=== PATIENT | female | born 1960 | race Caucasian/White ===

== ENCOUNTER 2019-02-15 07:01 | Day surgery (SDC) | payer OTHER, BC ==
--- NOTE | 2019-02-14 11:43 | RAD REPORT ---
EXAM DESCRIPTION: RAD - Chest Pa And Lat (2 Views) - 02/14/2019 11:38 am CLINICAL HISTORY: preop Chest pain. COMPARISON: <Comparisons> FINDINGS: The lungs are clear. The heart is normal in size. No displaced fractures. Aortic atheroscl erosis. IMPRESSION: No acute or concerning finding suspected.
[2019-02-14 11:44] LABS: Absolute Lymphocytes (CBC) 3.2 K/uL (0.7-4.9); Absolute Monocytes 0.6 K/uL (0.1-1.3); Absolute Neutrophil 6.6 K/uL (1.8-8.0); Basophils % 1.1 % (0-1.3); Eosinophils % 1.4 % (0-4.4); Hematocrit 43.7 % (36.0-45.0); Lymphocytes % 29.9 % (15.3-44.8); MPV 8.1 fL (7.6-11.3); RBC Red Blood Cell Count 4.96 M/uL (3.86-4.86)
[2019-02-14 12:00] LABS: Protime INR 0.85
[2019-02-14 12:04] LABS: Potassium 6.1 mmol/L (3.5-5.1)
--- NOTE | 2019-02-14 12:16 | EKG ---
Test Date: 2019-02-14 Test Time: 11:33:18 Corrosion Control Fitter: ROMI MEASUREMENT RESULTS: Intervals: Rate: 70 MT: 136 QRSD: 82 QT: 390 QTc: 421 [place]: P: 48 MT: 136 QRS: 77 T: 103 INTERPRETIVE STATEMENTS: Normal sinus rhythm Possible Left atrial enlargement Nonspecific T wave abnormality Abnormal ECG Compared to ECG 07/24/2017 15:10:55 T-wave abnormality now present Right-axis deviation no longer present Myocardial infarct finding no longer present ST (T wave) deviation no longer present Possible ischemia no longer present Electronically Signed On 02-14-19 12:15:32 CDT by Bruno Broderick
--- OUTSIDE RECORDS SUMMARY | 2019-02-15 07:03 | XMS REPORT | Clinical Summary ---
:1960 Author Organization [facility] Address [address] [place] [address] Care Team Providers Name Role Phone Yoni Robison Primary Care Provider Allergies Active Allergy Reactions Severity Noted Date Comments Codeine 01/25/2016 Erythromycin 01/25/2016 Morphine 01/25/2016 Penicillins 01/25/2016 Medications Not on file Active Problems Not on file Social History Tobacco Use Types Packs/Day Years Used Date Never Assessed Sex Assigned at Date Recorded Not on file Job Start Date Occupation Industry Not on file Not on file Not on file Travel History Travel Start Travel End No recent travel history available. Last Filed Vital Signs Not on file Plan of Treatment Not on file Results Not on fileafter 02/14/2018 Insurance Payer Benefit Plan / Subscriber ID Type Phone Address Group [employer] - [employer] AETNA HMO POS xxxxxxxxxx HMO/POS QPOS BLUE CROSS/BLUE BCBS OS xxxxxxxxxxxx PPO [phone] [address] SHIELD POS/PPO/[place] [address] Advance Directives For more information, please contact:[address] [phone] Code Status Date Activated Date Inactivated Comments Full Code 01/25/2016 3:07 PM 01/25/2016 3:34 PM This code status was determined by: Patient
[2019-02-15] MEDS ORDERED: ACETYLCYST 20% 800 MG/4 ML VIAL PO ONE (07:41)
[2019-02-15] MEDS ORDERED: NA CHLORIDE 0.9% 500 ML ONE ×2 (07:58→09:40)
[2019-02-15] MEDS ORDERED: HEPA 1000U/500MLS 1,000 UNIT/500 ML BAG IV ONE (09:43)
[2019-02-15] MEDS ORDERED: LIDOCAINE 1% 20 ML MDV ONE (09:43)
[2019-02-15] MEDS ORDERED: FENTANYL CITR 100 MCG/2 ML ONE (09:44)
[2019-02-15] MEDS ORDERED: MIDAZOLAM HCL 2 MG/2 ML INJ ONE (09:44)
--- NOTE | 2019-02-15 14:07 | OP ---
Date of Procedure: 02/15/2019 Surgeon: Dm Ahuja MD Team Assistant: Brandyn Ness and Bambi Alaniz. Procedure: Attempted abdominal angiogram with runoff, selective bilateral external iliac angiogram. Indication: Peripheral arterial disease. Description Of Procedure: Ms. German is 58. Documented PAD by Doppler and symptom. Admitted as an outpatient for an abdominal angiogram with runoff. She was given Versed for sedation. She was prep ped and draped in the routine sterile fashion. I attempted to do an abdominal angiogram with runoff via left groin and right groin approach. I was able to cannulate the external iliac artery successfu lly with a needle. However, the wire would not advance. Angiography done showed complete occlusion of the right external iliac and the left external iliac artery. The plan was to bring her back to do the abdominal angiogram with runoff via left arm approach at a different day. There were no complic ations. Blood Loss: 5 cc. Total Conscious Sedation: 30 minutes. Final Diagnosis: Severe peripheral arterial disease. Plan: To do an abdominal angiogram with runoff via left arm approach at a different day. NADIA/OZ Voice ID: [id number] Report ID: [id number]
== END 2019-02-15 12:55 | disposition home health service (06) ==
LOC: CCL 07:01
DX: I70.213 Atherosclerosis of native arteries of extremities with intermittent claudication, bilateral legs (principal); E11.51 Type 2 diabetes mellitus with diabetic peripheral angiopathy without gangrene; I10 Essential (primary) hypertension; E78.2 Mixed hyperlipidemia; I35.8 Other nonrheumatic aortic valve disorders; Z79.84 Long term (current) use of oral hypoglycemic drugs; Z79.82 Long term (current) use of aspirin; Z79.899 Other long term (current) drug therapy; Z87.891 Personal history of nicotine dependence; Z82.49 Family history of ischemic heart disease and other diseases of the circulatory system
CPT/HCPCS: 36415; 71046; 80048; 84132; 85025; 85610; 85730; 93005; J2250; J3010

== ENCOUNTER 2019-02-22 08:58 | Day surgery (SDC) | payer OTHER, BC ==
--- OUTSIDE RECORDS SUMMARY | 2019-02-22 09:01 | XMS REPORT | Clinical Summary ---
:1960 Author Organization [facility] Address [address] [place] [address] Care Team Providers Name Role Phone Yoni [...] Not on file Results Not on fileafter 02/21/2018 Insurance Payer Benefit Plan / Subscriber ID Type Phone Address Group [employer] - [employer] AETNA HMO POS xxxxxxxxxx HMO/POS QPOS BLUE CROSS/BLUE BCBS OS xxxxxxxxxxxx PPO [phone] [address] SHIELD POS/PPO/[place] [address] Advance Directives For more information, please contact:[address] [phone] Code Status Date Activated Date Inactivated Comments Full Code 01/25/2016 3:07 PM 01/25/2016 3:34 PM This code status was determined by: Patient
[2019-02-22] MEDS ORDERED: NA CHLORIDE 0.9% 500 ML ONE (09:31)
[2019-02-22] MEDS ORDERED: HEPA 1000U/500MLS 2,000 UNIT/1,000 ML BAG IV ONE (12:26)
[2019-02-22] MEDS ORDERED: FENTANYL CITR 100 MCG/2 ML ONE (12:39)
[2019-02-22] MEDS ORDERED: MIDAZOLAM HCL 2 MG/2 ML INJ ONE ×2 (12:39→13:01)
[2019-02-22] MEDS ORDERED: HEPARIN 5000 UNIT/ML 1 ML VIAL ONE (12:39)
[2019-02-22] MEDS ORDERED: ATROPINE SULF 1 MG/10 ML SYR IV ONE (12:39)
[2019-02-22] MEDS ORDERED: ACETYLCYST 20% 4 ML VIAL IH ONE (12:51)
--- NOTE | 2019-02-22 20:29 | OP ---
Date of Procedure: 02/22/2019 Surgeon: Dm Ahuja MD Staff Psychiatrist: Dorcas Alaniz and Brandyn Ness. Admitted to my service as an outpatient today 02/22/2019 for abdominal an angiogram with runoff via l eft brachial approach. Indication: PAD and inability to go through her groin to do the procedure about a week ago. Procedure In Detail: Ms. German was brought to the label designer today with the intention of doing an ab dominal angiogram with a left brachial approach. A 6-Chinese sheath was introduced in the left brachi al artery successfully. A pigtail catheter was used and advanced selectively above the renals and di stal aorta. Getting there was done using a [employer] long exchange wire without any difficulties. 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 No complications. Blood Loss: 10 cc. Postoperative Diagnosis: Peripheral arterial disease, severe. Plan: Aortobifemoral surgery. Disposition: The patient will be going home today. She received Mucomyst before the procedure, and she will receive some after the procedure. A CD will be given to her. I will schedule her for an aortobifemoral surgery in [place] with the vascular surgeons probably at [facility]. NADIA/ZO Voice ID: [id number] Report ID: [id number]
== END 2019-02-22 16:10 | disposition home or self-care (01) ==
LOC: CCL 08:58
PROC: B40DYZZ Plain Radiography of Aorta and Bilateral Lower Extremity Arteries using Other Contrast (ICD-10-PCS; principal; 2019-02-22)
DX: I70.213 Atherosclerosis of native arteries of extremities with intermittent claudication, bilateral legs (principal); I70.92 Chronic total occlusion of artery of the extremities; I70.1 Atherosclerosis of renal artery; I35.8 Other nonrheumatic aortic valve disorders; I10 Essential (primary) hypertension; E78.2 Mixed hyperlipidemia; E11.9 Type 2 diabetes mellitus without complications; Z87.891 Personal history of nicotine dependence; Z88.0 Allergy status to penicillin; Z88.3 Allergy status to other anti-infective agents; Z88.6 Allergy status to analgesic agent; Z82.49 Family history of ischemic heart disease and other diseases of the circulatory system
CPT/HCPCS: 36200; 75630; 82962; C1893; J1644; J2250; J3010

== ENCOUNTER 2021-07-08 09:36 | Emergency (ER) | payer BC, OTHER, SELFPAY ==
[2021-07-08 10:29] LABS: Absolute Lymphocytes (CBC) 1.2 K/uL (0.7-4.9); Basophils % 0.7 % (0-1.3); Hematocrit 45.9 % (36.0-45.0); Lymphocytes % 11.4 % (15.3-44.8); MPV 8.1 fL (7.6-11.3); RBC Red Blood Cell Count 5.33 M/uL (3.86-4.86)
[2021-07-08 10:30] LABS: Protime INR 1.01
[2021-07-08] MEDS ORDERED: HYDRALAZINE HCL 20 MG/ML VIAL ONE ×2 (10:43→12:38)
[2021-07-08] MEDS ORDERED: ONDANSETRON 4 MG/2 ML VIAL ONE (11:11)
--- NOTE | 2021-07-08 11:36 | RAD REPORT ---
EXAM DESCRIPTION: RAD - Chest Single View - 07/08/2021 10:37 am CLINICAL HISTORY: ams Chest pain. COMPARISON: Chest Pa And Lat (2 Views) dated 02/14/2019; Chest Single View dated 07/24/2017 FINDINGS: Portable technique limits examination quality. Mild interstitial pulmonary edema suspected. The heart is mildly enlarged in size. No displaced fract ures. IMPRESSION: Mild CHF.
[2021-07-08 11:48] LABS: SARS-COV-2 RT PCR NEGATIVE (NEGATIVE)
[2021-07-08 11:49] LABS: Albumin 4.2 g/dL (3.4-5.0); Bilirubin Direct 0.1 mg/dL (0-0.2); Magnesium 2.8 mg/dL (1.8-2.4)
[2021-07-08 12:14] LABS: Bilirubin Total 0.4 mg/dL (0.2-1.0); Protein, Total 8.7 g/dL (6.4-8.2)
[2021-07-08 12:24] LABS: Troponin (Emerg Dept Use Only) 0.03 ng/mL (0.0-0.045)
--- NOTE | 2021-07-08 14:03 | RAD REPORT ---
EXAM DESCRIPTION: CT - Head Brain Wo Cont - 07/08/2021 1:40 pm CLINICAL HISTORY: Alteration of awareness/confusion COMPARISON: None TECHNIQUE: Computed axial tomography of the head was obtained. IV contrast was not requested. All CT scans are performed using dose optimization technique as appropriate and may include automated exposure control or mA/KV adjustment according to patient size. FINDINGS: A 13 millimeter low-density area left thalamus. 3 millimeter area of increased density near the periventricular white matter adjacent to the frontal horn right lateral ventricle and third ventricle The ventricles are normal in caliber. No extra-axial fluid collection is noted. Moderate to marked low-density areas within periventricular, deep and subcortical white matter likely represent ischemic changes secondary to small vessel disease. Fluid within the sinuses/ mastoids is not seen. IMPRESSION: Moderate to marked low-density areas within periventricular, deep and subcortical white matter likely may indicate a leukoencephalopathy, other a demyelinating process or probably less like ly ischemic changes secondary to small vessel disease. 3 millimeter area of increased density near the periventricular white matter adjacent to the frontal horn right lateral ventricle and third ventricle. This probably represents calcification. However, a small bleed can have a similar appearance 13 millimeter low-density area within the left thalamus may indicate an acute infarction. MRI brain may be helpful for further evaluation
[2021-07-08] MEDS ORDERED: Nicardipine/NS 25 MG/250 ML KIT IV ONE (14:44)
[2021-07-08] MEDS ORDERED: LORazepam 2 MG/ML VIAL ONE (15:33)
--- NOTE | 2021-07-08 16:17 | RAD REPORT ---
EXAM DESCRIPTION: MRI - Brain Wo Cont - 07/08/2021 3:40 pm CLINICAL HISTORY: ataxia COMPARISON: Head CT July 08, 2021 TECHNIQUE: Axial, sagittal, and coronal magnetic resonance images of the brain were obtained. FINDINGS: Extensive abnormal signal within periventricular, deep and subcortical white matter and th e brainstem. Abnormal signal also involves the thalamus, basal ganglia and cerebellar peduncle is tarun aterally Diffusion-weighted/ADC mapping does not reveal evidence of acute infarction. The ventricles are normal caliber. An extra-axial fluid collection is not noted. Fluid within the sinuses/mastoids is not seen IMPRESSION: Extensive abnormal signal throughout the brain as described above. This may be secondary to a leukoencephalopathy, or encephalomyelitis. This could be infectious, inflammatory or due to a metabolic disturbance. Toxic ingestion is a anothe r consideration
--- NOTE | 2021-07-08 17:22 | ER ---
Nurse's Notes [facility] Name: Nicolasa German Age: 61 yrs Sex: Female : 1960 Arrival Date: 07/08/2021 Time: 09:40 Bed 26 Private MD: Mikey Robison H Diagnosis: Altered mental status, unspecified;Posterior Reversible Encephalopathy Syndrome ;Hypertensive Emergency Presentation: 07/08 09:42 Chief complaint: Pt's states "she's been having trouble walking for about 2 aa5 weeks now and it's gotten worse over the last 2 days because she's been disoriented and vomiting and not wanting to eat". Pt states "yesterday she didn't know who I was and this morning she tried to smoke a cigarette but she didn't know how". Pt currently A\\T\\O x person and place, disoriented to time. Pt's reports pt was seen at [place] [facility] on Thursday. 09:42 Initial Sepsis Screen: Does the patient meet any 2 criteria? No. Patient's initial aa5 sepsis screen is negative. Does the patient have a suspected source of infection? No. Patient's initial sepsis screen is negative. Risk Assessment: Do you want to hurt yourself or someone else? Patient reports no desire to harm self or others. Onset of symptoms was June 2021. 09:42 Acuity: RAFI 2 aa5 09:42 Coronavirus screen: vomiting. Ebola Screen: No symptoms or risks identified at this aa5 time. 09:42 Method Of Arrival: Wheelchair aa5 Historical: - Allergies: 09:42 Codeine; aa5 09:42 Erythromycin; aa5 09:42 Morphine; aa5 09:42 PENICILLINS; aa5 - PMHx: 09:42 Diabetes - NIDDM; Hypertension; aa5 - Immunization history:: Client reports having NOT received the Covid vaccine. - Social history:: Smoking status: Patient reports the use of cigarette tobacco products, smokes one pack cigarettes per day. Screenin:45 Abuse screen: Denies threats or abuse. Nutritional screening: lack of appetite >3 days. ap3 Tuberculosis screening: No symptoms or risk factors identified. Fall Risk No fall in past 12 months (0 pts). Secondary diagnosis (15 points) impaired mobility, IV access (20 points). Ambulatory Aid- None/Bed Rest/Nurse Assist (0 pts). Gait- Weak (10 pts.). Mental Status- Oriented to own ability (0 pts). Total Wilson Fall Scale indicates High Risk Score (45 or more points). Fall prevention measures have been instituted. Side Rails Up X 2 Frequent Obs/Assessments Occuring Family Present and informed to notify staff if the need to leave the bedside As available patient and family educated on Fall Prevention Program and Strategies. Assessment: 09:45 General: Appears in no apparent distress. Behavior is cooperative. Pain: Denies pain. ap3 Neuro: Level of Consciousness is awake, alert, obeys commands, Oriented to person, place, situation, Weakness Gait is patient arrived via wheelchair. Speech is normal. Neuro: Reports patients spouse reports patient has been more confused lately. It is reported that the spouse took the patient to another facility last Thursday for similar symptoms however the patient has developed worsening symptoms. Cardiovascular: Patient's skin is warm and dry. Respiratory: Airway is patent Respiratory effort is even, unlabored. 11:25 Reassessment: Patient and/or family updated on plan of care and expected duration. Pain ap3 level reassessed. Patient is alert, oriented x 3, equal unlabored respirations, skin warm/dry/pink. 13:27 Reassessment: No changes from previously documented assessment. Patient and/or family ap3 updated on plan of care and expected duration. Pain level reassessed. Patient is alert, oriented x 3, equal unlabored respirations, skin warm/dry/pink. 15:15 Reassessment: No changes from previously documented assessment. Patient and/or family ap3 updated on plan of care and expected duration. Pain level reassessed. Patient is alert, oriented x 3, equal unlabored respirations, skin warm/dry/pink. 16:47 Reassessment: No changes from previously documented assessment. Patient and/or family ap3 updated on plan of care and expected duration. Pain level reassessed. Patient is alert, oriented x 3, equal unlabored respirations, skin warm/dry/pink. 18:09 Reassessment: No changes from previously documented assessment. Patient and/or family ap3 updated on plan of care and expected duration. Pain level reassessed. Patient is alert, oriented x 3, equal unlabored respirations, skin warm/dry/pink. Vital Signs: 09:42 BP 268 / 141; Pulse 97; Resp 18 S; Temp 98.8(O); Pulse Ox 98% on R/A; Weight 58.97 kg aa5 (R); Height 5 ft. 3 in. (160.02 cm) (R); 09:46 BP 246 / 159 LA Supine (auto/reg); Pulse 96; Pulse Ox 100% on R/A; Height 5 ft. 3 in. mb4 (160.02 cm) (R); 09:48 BP 268 / 141 LA Supine (auto/reg); Pulse 100; Pulse Ox 99% on R/A; mb4 10:01 BP 257 / 131; Pulse 101; Pulse Ox 100% on R/A; mb4 10:30 BP 218 / 106 LA Supine (auto/reg); Pulse 91; Pulse Ox 100% on R/A; mb4 10:43 BP 227 / 96 LA Supine (auto/reg); Pulse 86; Pulse Ox 100% on R/A; mb4 11:00 BP 225 / 87; Pulse 97; Pulse Ox 97% on R/A; ap3 12:19 BP 260 / 101; Pulse 99; Resp 16; Pulse Ox 100% on R/A; ap3 13:27 BP 238 / 99; Pulse 91; Pulse Ox 100% on R/A; ap3 14:34 BP 206 / 97; Pulse 91; Pulse Ox 99% on R/A; ap3 15:51 BP 192 / 132; Pulse 97; Pulse Ox 99% ; ap3 15:56 BP 221 / 85; Pulse 97; Pulse Ox 100% on R/A; ap3 15:57 BP 208 / 87; Pulse 99; Pulse Ox 99% on R/A; ap3 15:58 BP 197 / 91 LA (auto/reg); Pulse 99; Pulse Ox 100% on R/A; ap3 16:01 BP 207 / 81; Pulse 98; Pulse Ox 100% on R/A; ap3 16:03 BP 184 / 82; ap3 16:09 BP 186 / 80; Pulse 94; Pulse Ox 100% on R/A; ap3 16:17 BP 191 / 78; Pulse 106; Pulse Ox 100% on R/A; ap3 16:30 BP 187 / 80; Pulse 94; Pulse Ox 100% on R/A; ap3 16:45 BP 171 / 106; Pulse 96; Pulse Ox 100% on R/A; ap3 17:00 BP 186 / 79; Pulse 102; Pulse Ox 99% on R/A; ap3 17:33 BP 172 / 64; Pulse 109; Pulse Ox 99% on R/A; ap3 18:08 BP 176 / 80; Pulse 97; Resp 18; Pulse Ox 99% on R/A; ap3 18:15 BP 191 / 86; Pulse 105; Pulse Ox 100% on R/A; ap3 18:44 BP 210 / 112 (man/); Pulse 102; Pulse Ox 100% on R/A; ap3 18:58 BP 189 / 126; Pulse 100; Resp 17; Pulse Ox 100% on R/A; ap3 09:46 Body Mass Index 23.03 (58.97 kg, 160.02 cm) mb4 ED Course: 09:40 Patient arrived in ED. am2 09:41 Mikey Robison DO is Private Physician. am2 09:42 Arm band placed on Patient placed in an exam room, on a stretcher. aa5 09:42 Patient has correct armband on for positive identification. Bed in low position. Call aa5 light in reach. Side rails up X2. taker out on. Pulse ox on. NIBP on. 09:43 Anastasiia Smith, BELLA is Primary Nurse. ap3 09:52 Triage completed. aa5 09:57 Sameer Jamison PA is PHCP. jr8 09:57 Tiana Hernandez MD is Attending Physician. jr8 10:20 Initial lab(s) drawn, by me, sent to lab. Inserted saline lock: 20 gauge in right mb4 antecubital area, using aseptic technique. Blood collected. 10:24 COVID swab sent to lab. ap3 10:34 Lab(s) recollected, by me, sent to lab. EKG done, by ED staff, reviewed by Sameer INIGUEZ. 10:36 Ammonia Sent. mb4 10:36 AMMONIA Sent. mb4 10:36 T4,Total Sent. mb4 10:36 T4 Free Sent. mb4 10:36 TSH Sent. mb4 10:37 XRAY Chest (1 view) In Process Unspecified. EDMS 13:40 CT Head Brain wo Cont In Process Unspecified. EDMS 15:40 MRI - Brain Wo Cont In Process Unspecified. EDMS 17:17 Pt visited by . ap3 19:47 Primary Nurse role handed off by Anastasiia Smith RN bb 20:25 [place] Adams, RN is Primary Nurse. mr2 Administered Medications: 10:24 Drug: hydrALAZINE 20 mg Route: IVP; Site: right antecubital; ap3 12:06 Drug: Zofran (Ondansetron) 4 mg Route: IVP; Site: right antecubital; ap3 13:57 Follow up: Response: No adverse reaction ap3 12:18 Drug: hydrALAZINE 20 mg Route: IVP; Site: right antecubital; ap3 12:18 Follow up: Response: No adverse reaction ap3 15:30 Drug: Ativan (LORazepam) 1 mg Route: IVP; Site: right antecubital; ss 15:45 Follow up: Response: Patient is sedated ss 15:51 Drug: Cardene (niCARdipine) 5 mg/hr Route: IV; Rate: calculated rate; Site: right ap3 antecubital; Outcome: 17:22 ER care complete, transfer ordered by MD. mg 21:08 Patient left the ED. mr2 Signatures: Dispatcher [employer] EDMN Alina Mello RN RN Bree Sorenson RN RN aa5 Michelle Hall RN RN ss Sameer Jamison PA PA jr8 Anastasiia Zamudio am2 Anastasiia Smith RN RN ap3 Janette Hammer 4 [place] Adams RN RN mr2
--- NOTE | 2021-07-08 17:23 | EDPHYS ---
Physician Documentation [facility] Name: Nicolasa German Age: 61 yrs Sex: Female : 1960 Arrival Date: 07/08/2021 Time: 09:40 Bed 26 Private MD: Mikey Robison H ED Physician Tiana Hernandez HPI: 07/08 14:41 This 61 yrs old Female presents to ER via Wheelchair with complaints of jr8 Trouble Walking, Trouble Talking, Altered Mental Status, Decreased Appetite. 14:42 Onset: The symptoms/episode began/occurred gradually, 2 week(s) ago. Severity of jr8 symptoms: At their worst the symptoms were moderate in the emergency department the symptoms are worse. Patient's baseline: Neuro: alert and fully oriented, Motor: no deficits, Ambulation: walks without assistance, Speech: normal. The patient has not experienced similar symptoms in the past. Family member stated that patient has been off of her medications for some time. Was seen at [facility] the other day for similar symptoms and was sent home to follow up. Stated that they came back today to this ED for worsening of altered mentation. Patient currently alert to person, place, time, and event. Cannot recall year or month. Historical: - Allergies: 09:42 Codeine; aa5 09:42 Erythromycin; aa5 09:42 Morphine; aa5 09:42 PENICILLINS; aa5 - PMHx: 09:42 Diabetes - NIDDM; Hypertension; aa5 - Immunization history:: Client reports having NOT received the Covid vaccine. - Social history:: Smoking status: Patient reports the use of cigarette tobacco products, smokes one pack cigarettes per day. ROS: 14:42 Eyes: Negative for injury, pain, redness, and discharge, ENT: Negative for injury, jr8 pain, and discharge, Neck: Negative for injury, pain, and swelling, Cardiovascular: Negative for chest pain, palpitations, and edema, Respiratory: Negative for shortness of breath, cough, wheezing, and pleuritic chest pain, Abdomen/GI: Negative for abdominal pain, nausea, vomiting, diarrhea, and constipation, Back: Negative for injury and pain, MS/Extremity: Negative for injury and deformity, Skin: Negative for injury, rash, and discoloration. 14:42 Neuro: Positive for altered mental status, gait disturbance, weakness. Exam: 16:44 Eyes: Pupils equal round and reactive to light, extra-ocular motions intact. Lids and jr8 lashes normal. Conjunctiva and sclera are non-icteric and not injected. Cornea within normal limits. Periorbital areas with no swelling, redness, or edema. ENT: Nares patent. No nasal discharge, no septal abnormalities noted. Tympanic membranes are normal and external auditory canals are clear. Oropharynx with no redness, swelling, or masses, exudates, or evidence of obstruction, uvula midline. Mucous membranes moist. Neck: Trachea midline, no thyromegaly or masses palpated, and no cervical lymphadenopathy. Supple, full range of motion without nuchal rigidity, or vertebral point tenderness. No Meningismus. Cardiovascular: Regular rate and rhythm with a normal S1 and S2. No gallops, murmurs, or rubs. Normal PMI, no JVD. No pulse deficits. Respiratory: Lungs have equal breath sounds bilaterally, clear to auscultation and percussion. No rales, rhonchi or wheezes noted. No increased work of breathing, no retractions or nasal flaring. Abdomen/GI: Soft, non-tender, with normal bowel sounds. No distension or tympany. No guarding or rebound. No evidence of tenderness throughout. Back: No spinal tenderness. No costovertebral tenderness. Full range of motion. Skin: Warm, dry with normal turgor. Normal color with no rashes, no lesions, and no evidence of cellulitis. MS/ Extremity: Pulses equal, no cyanosis. Neurovascular intact. Full, normal range of motion. 16:44 Neuro: Orientation: to person, place, time, situation, Mentation: able to follow commands, confused, Patient thinks it is 1989 and that the month is february, Memory: immediate memory is intact, remote memory is impaired, recent memory is intact, Cranial nerves: CN I not tested, CN II- XII are normal as tested, visual jasso are intact. extraocular movements are intact, Facial palsy and sensory deficits are absent. Speech is clear and appropriate. Tongue strength is normal, Cerebellar function: dysmetria is noted on both sides, Motor: moves all fours, Sensation: no obvious gross deficits, seizure activity, is not displayed by the patient, Abnormal movements: resting tremor, is located in the right hand and left hand, clonus present bilateral feet . Vital Signs: 09:42 BP 268 / 141; Pulse 97; Resp 18 S; Temp 98.8(O); Pulse Ox 98% on R/A; Weight 58.97 kg aa5 (R); Height 5 ft. 3 in. (160.02 cm) (R); 09:46 BP 246 / 159 LA Supine (auto/reg); Pulse 96; Pulse Ox 100% on R/A; Height 5 ft. 3 in. mb4 (160.02 cm) (R); 09:48 BP 268 / 141 LA Supine (auto/reg); Pulse 100; Pulse Ox 99% on R/A; mb4 10:01 BP 257 / 131; Pulse 101; Pulse Ox 100% on R/A; mb4 10:30 BP 218 / 106 LA Supine (auto/reg); Pulse 91; Pulse Ox 100% on R/A; mb4 10:43 BP 227 / 96 LA Supine (auto/reg); Pulse 86; Pulse Ox 100% on R/A; mb4 11:00 BP 225 / 87; Pulse 97; Pulse Ox 97% on R/A; ap3 12:19 BP 260 / 101; Pulse 99; Resp 16; Pulse Ox 100% on R/A; ap3 13:27 BP 238 / 99; Pulse 91; Pulse Ox 100% on R/A; ap3 14:34 BP 206 / 97; Pulse 91; Pulse Ox 99% on R/A; ap3 15:51 BP 192 / 132; Pulse 97; Pulse Ox 99% ; ap3 15:56 BP 221 / 85; Pulse 97; Pulse Ox 100% on R/A; ap3 15:57 BP 208 / 87; Pulse 99; Pulse Ox 99% on R/A; ap3 15:58 BP 197 / 91 LA (auto/reg); Pulse 99; Pulse Ox 100% on R/A; ap3 16:01 BP 207 / 81; Pulse 98; Pulse Ox 100% on R/A; ap3 16:03 BP 184 / 82; ap3 16:09 BP 186 / 80; Pulse 94; Pulse Ox 100% on R/A; ap3 16:17 BP 191 / 78; Pulse 106; Pulse Ox 100% on R/A; ap3 16:30 BP 187 / 80; Pulse 94; Pulse Ox 100% on R/A; ap3 16:45 BP 171 / 106; Pulse 96; Pulse Ox 100% on R/A; ap3 17:00 BP 186 / 79; Pulse 102; Pulse Ox 99% on R/A; ap3 17:33 BP 172 / 64; Pulse 109; Pulse Ox 99% on R/A; ap3 18:08 BP 176 / 80; Pulse 97; Resp 18; Pulse Ox 99% on R/A; ap3 18:15 BP 191 / 86; Pulse 105; Pulse Ox 100% on R/A; ap3 18:44 BP 210 / 112 (man/); Pulse 102; Pulse Ox 100% on R/A; ap3 18:58 BP 189 / 126; Pulse 100; Resp 17; Pulse Ox 100% on R/A; ap3 09:46 Body Mass Index 23.03 (58.97 kg, 160.02 cm) mb4 MDM: 09:57 Patient medically screened. jr8 16:44 Data reviewed: vital signs, nurses notes, lab test result(s), EKG, radiologic studies, jr8 CT scan, plain films. Data interpreted: Pulse oximetry: on room air is 100 %. Interpretation: normal. Counseling: I had a detailed discussion with the patient and/or guardian regarding: the historical points, exam findings, and any diagnostic results supporting the discharge/admit diagnosis, lab results, radiology results, the need to transfer to another facility, [facility] does not immediately have the required specialist. 17:19 ED course: Spoke with neurology and finn[place] rubber at [facility]. Discussion that this may jr8 be a PRES syndrome. That at this time we have no ICU availability. They are happy to take patient for further evaluation. This was also discussed with of patient and is good with this . 18:36 Physician consultation: Blend Plant Operator Livia regarding regarding transfer, patient's pm1 condition, and will see patient. 18:52 Physician consultation: [facility] regarding regarding transfer, patient's pm1 condition, would like consultation with With neurologist now regarding blood pressure goals. 18:56 Physician consultation: Neurologist Daren regarding consult, patient's condition, pm1 Fine with blood pressure goal 190 here in the ER. Would like a copy of MRI images. 07/08 09:57 Order name: Basic Metabolic Panel; Complete Time: 13:10 07/08 09:57 Order name: CBC with Diff; Complete Time: 11:09 07/08 09:57 Order name: LFT's; Complete Time: 13:10 07/08 09:57 Order name: Magnesium; Complete Time: 13:10 07/08 09:57 Order name: NT PRO-BNP; Complete Time: 13:10 07/08 09:57 Order name: PT-INR; Complete Time: 11:09 07/08 09:57 Order name: Troponin (emerg Dept Use Only); Complete Time: 13:10 07/08 10:12 Order name: TSH; Complete Time: 12:18 ap3 07/08 10:12 Order name: T4 Free; Complete Time: 12:18 ap3 07/08 10:12 Order name: T4,Total ap3 07/08 10:14 Order name: AMMONIA 07/08 10:14 Order name: Ammonia; Complete Time: 11:59 EDMS 07/08 11:06 Order name: COVID-19/FLU A+B/RSV; Complete Time: 11:59 EDMS 07/08 09:57 Order name: XRAY Chest (1 view); Complete Time: 11:59 07/08 09:57 Order name: EKG; Complete Time: 09:58 07/08 09:57 Order name: Cardiac monitoring; Complete Time: 09:59 07/08 09:57 Order name: EKG - Nurse/Tech; Complete Time: 10:34 07/08 09:57 Order name: IV Saline Lock; Complete Time: 10:16 07/08 09:57 Order name: Labs collected and sent; Complete Time: 10:24 07/08 09:57 Order name: O2 Per Protocol; Complete Time: 09:59 07/08 09:57 Order name: O2 Sat Monitoring; Complete Time: 09:59 07/08 13:12 Order name: CT Head Brain wo Cont; Complete Time: 14:06 07/08 14:09 Order name: MRI - Brain Wo Cont; Complete Time: 16:29 jr8 Administered Medications: 10:24 Drug: hydrALAZINE 20 mg Route: IVP; Site: right antecubital; ap3 12:06 Drug: Zofran (Ondansetron) 4 mg Route: IVP; Site: right antecubital; ap3 13:57 Follow up: Response: No adverse reaction ap3 12:18 Drug: hydrALAZINE 20 mg Route: IVP; Site: right antecubital; ap3 12:18 Follow up: Response: No adverse reaction ap3 15:30 Drug: Ativan (LORazepam) 1 mg Route: IVP; Site: right antecubital; ss 15:45 Follow up: Response: Patient is sedated ss 15:51 Drug: Cardene (niCARdipine) 5 mg/hr Route: IV; Rate: calculated rate; Site: right ap3 antecubital; Disposition: 07/09 08:54 Co-signature as Attending Physician, Tiana Hernandez MD I agree with the assessment and sp3 plan of care. Disposition Summary: 07/08/21 17:22 Transfer Ordered Transfer Location: [facility] jr8 Reason: Higher level of care jr8 Condition: Fair jr8 Problem: new jr8 Symptoms: are unchanged jr8 Accepting Physician: Dr. Manuel(07/08/21 21:08) mr2 Diagnosis - Altered mental status, unspecified jr8 - Posterior Reversible Encephalopathy Syndrome jr8 - Hypertensive Emergency jr8 Forms: - Medication Reconciliation Form jr8 - SBAR form jr8 Signatures: Dispatcher [employer] EDBree Marin, RN RN aa5 Michelle Hall RN RN ss Sameer Jamison PA PA jr8 Conner Fish, CASINO CASHIER MANAGER CASINO CASHIER MANAGER pm1 Anastasiia Smith RN RN ap3 Tiana Hernandez MD MD sp3 Cleveland Adams RN RN mr2 Corrections: (The following items were deleted from the chart) 07/08 11:06 10:16 CORONAVIRUS+MR.LAB.BRZ ordered. EDNE EDMS 21:08 17:22 Dr. Manuel jr8 mr2
[2021-07-08 21:18] VITALS: TEMP 98.8
[2021-07-08 21:50] VITALS: O2SAT 100
[2021-07-08 21:53] VITALS: BP 189/126
--- NOTE | 2021-07-09 12:16 | EKG ---
Test Date: 2021-07-08 Test Time: 10:27:03 [employer] Jumpbasting: JESÚS MEASUREMENT RESULTS: Intervals: Rate: 94 ID: [id number] QRSD: 80 QT: 378 QTc: 472 [place]: P: 66 ID: [id number] QRS: 83 T: 102 INTERPRETIVE STATEMENTS: Normal sinus rhythm Possible Left atrial enlargement Left ventricular hypertrophy ST & T wave abnormality, consider lateral ischemia Prolonged QT Abnormal ECG Compared to ECG 02/14/2019 11:33:18 Left ventricular hypertrophy now present ST (T wave) deviation now present Possible ischemia now present Prolonged QT interval now present T-wave abnormality no longer present Electronically Signed On 07-09-21 12:13:08 CDT by Dm Ahuja
== END 2021-07-08 21:08 | disposition short-term general hospital (02) ==
LOC: ER 09:36
DX: I67.83 Posterior reversible encephalopathy syndrome (principal); I16.1 Hypertensive emergency; F17.210 Nicotine dependence, cigarettes, uncomplicated; I10 Essential (primary) hypertension; E11.9 Type 2 diabetes mellitus without complications; Z88.0 Allergy status to penicillin; Z88.3 Allergy status to other anti-infective agents; Z88.5 Allergy status to narcotic agent
CPT/HCPCS: 0241U; 36415; 70450; 70551; 71045; 80048; 80076; 82140; 83735; 83880; 84436; 84439; 84443; 84484; 85025; 85610; 93005; 96374; 96375; 99285; J0360; J2405

== ENCOUNTER 2023-02-03 11:59 | Inpatient (IN) | payer OTHER ==
--- OUTSIDE RECORDS SUMMARY | 2023-02-03 12:05 | XMS REPORT | Continuity of Care Document ---
:[address] [facility] t Address [address] [place] [address] [address] [place] [address] Care Team Providers Name Role Phone TIMO FUNG VIN Primary Care Physician Unavailable LANI CHAN Attending Clinician Unavailable Jono VALDERRAMA-C, Elvia Charles Attending Clinician [phone] OSMEL LOPEZ Attending Clinician Unavailable Hazel Santana MA Attending Clinician Unavailable Bambi Neumann MA Attending Clinician Unavailable MD NATALY JACKSON Attending Clinician Unavailable Ricardo Gordon MD Attending Clinician Bernardino Goodson MD Attending Clinician Brent Fields Attending Clinician Elton Gómez MD Attending Clinician LARA BANG Attending Clinician Unavailable AVA GIBSON Attending Clinician Nelly BRANDYN Paz Attending Clinician Unavailable LANI CHAN Admitting Clinician Unavailable MD NATALY JACKSON Admitting Clinician Unavailable OSMEL LOPEZ Admitting Clinician Unavailable MD VICKEY FERNANDEZ Admitting Clinician UnavailLARA Hollis Admitting Clinician Unavailable BRANDYN TELLEZ Admitting Clinician Unavailable Payers Payer Name Policy Type Policy Number Effective Date Expiration Date S yusuf [employer]ET[employer] O POS [id number] 2014 00:00:00 QPOS BCBS OS [id number] 2012 00:00:00 POS/PPO/EPO Problems Condition Condition Condition Status Onset Resolution Last Treating Co mments Source Name Details Category Date Date Treatment Clinician Date ESRD ESRD Disease Active Methodi needing needing 5-26 st dialysis dialysis 00:00: Hospit a 00 l Hemodialys Hemodialys Disease Active Overview : Methodi is is 5-[address] catheter catheter 00:00: g of this Hos joann dysfunctio dysfunctio 00 note l n n might be different from the original. Added automatic ally from request for surgery [id number] ESRD (end ESRD (end Disease Active Overview: Methodi stage stage 5-[address] renal renal 00:00: g of this Hospita disease) disease) 00 note l might be different from the original. Added automatic ally from request for surgery [id number] Hypertensi Hypertensi Disease Active 2020-[address] ve urgency ve urgency 0-25 [facility] 00:00: Medical 00 Center PVD PVD Disease Recurre [facility] (periphera (periphera nce 6-25 [facility] l vascular l vascular 00:00: Me dical disease) disease) 00 Center Peripheral Peripheral Disease Recurre [facility] artery artery nce 6-25 [facility] disease disease 00:00: Medical 00 [place] S/P S/P Disease Active [facility] aorto-bife aorto-bife 6-25 [facility] moral moral 00:00: Medical bypass bypass 00 Center surgery by surgery by Dr Geoff Tellez (03/08) (03/08) Diabetes 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, type 2, Medical noninsulin noninsulin Ce nter dependent dependent Hypertensi Hypertensi Disease Active C [facility] on on [facility] Acute Acute Disease Active [facility] blood loss blood loss [facility] anemia anemia [facility] Perioperat Perioperat Disease Active C [facility] giselle pain giselle pain [facility] Allergies, Adverse Reactions, Alerts Allergy Allergy Status Severity Reaction(s) Onset Inactive Treating Comm ents Source Name Type Date Date Clinician Adhesive Propensi Active Rash Method i Tape-Ember ty to 10-09 st icones adverse 00:00: Hospita reaction 00 l s to drug Codeine Propensi Active Swelling Metho di ty to 10-09 adverse 00:00: Hospita reaction 00 l s to drug Mupiroc- Propensi Active Swelling THIS IS Met hodi Chlorhex ty to 10-[address] -[facility]-Ember adverse 00:00: ANTIBIOTI Hosp tre icone reaction 00 C l s to drug Erythrom Propensi Active Swelling Meth solitario ycin ty to 10-09 adverse 00:00: Hospita reaction 00 l s to drug Morphine Propensi Active Swelling Meth solitario ty to 10-09 adverse 00:00: Hospita reaction 00 l s to drug Penicill Propensi Active Swelling Meth solitario ins ty to 10-09 adverse 00:00: Hospita reaction 00 l s to drug Chlorhex Propensi Active [facility] idine ty to 03-22 [facility] adverse 00:00: Medical reaction 00 Center s CHLORHEX Allergy Active 0 [facility] IDINE 7-09 00:00: 00 Adhesive Propensi Active [address] [facility] Tape ty to 6-13 [facility] adverse 00:00: Medical reaction 00 Center s ADHESIVE Allergy Active 0 [facility] TAPE 6-13 00:00: 00 Codeine Propensi Active [address] [facility] ty to 5-13 [facility] adverse 00:00: Medical reaction 00 Center s Erythrom Propensi Active [address] [facility] ycin ty to 5-13 [facility] adverse 00:00: Medical reaction 00 Center s Morphine Propensi Active [address] [facility] [facility] ty to 5-13 [facility] adverse 00:00: Medical reaction 00 Center s Penicill Propensi Active [address] [facility] ins ty to 5-13 [facility] adverse 00:00: Medical reaction 00 Center s CODEINE Allergy Active 0 [facility] 5-13 00:00: 00 ERYTHROM Allergy Active 0 [facility] YCIN 5-13 00:00: 00 MORPHINE Allergy Active 0 [facility] 5-13 00:00: 00 PENICILL Allergy Active 0 [facility] INS 5-13 00:00: 00 Family History Family Member Diagnosis Comments Start Date Stop Date Source Natural father Diabetes [facility] Social History Social Habit Start Date Stop Date Quantity Comments Source Gender identity 2021-10-07 Identifies as Method ist 14:58:33 female gender Hospital (finding) Sexual orientation 2021-10-07 Heterosexual Meth odist 14:58:33 (finding) Hospital History of tobacco Smokes tobacco Me thodist use daily Hospital History SDOH [facility] Alcohol Std Drinks Medica l Center History SDOH [facility] Alcohol Binge Medical Filemon ter History of Social 2022-12-17 2022-12-[address] function 00:00:00 00:00:00 Hospital Tobacco use and 2022-01-28 2022-01-28 Smokeless tobacco Me thodist exposure 00:00:00 00:00:00 non-user Hospital Alcohol intake 2021-07-15 2021-07-15 Current non-drinker [facility] 00:[facility] 00:00:00 of alcohol [facility] (finding) Cigarettes smoked 2019-02-24 2019-02-[address] [facility] current (pack per 00:00:00 00:00:00 Medical Center day) - Reported Cigarette 2019-02-24 2019-02-[address] [facility] pack-years 00:00:00 00:00:00 Medical Center History SDOH 2019-02-24 2019-02-[address] [facility] Alcohol Frequency 00:00:00 00:00:00 [facility] Center Sex Assigned At [birth year] BRAN Huertas 00:00:00 00:00:00 Medical Center Smoking Status Start Date Stop Date Source Smokes tobacco daily 2022-01-28 00:00:00 Methodi [facility] Medications Ordered Filled Start Stop Current Ordering Indication Dosage Frequency Signature Comments Components Source Medication Medication Date Date Medication? Clinician (SIG) Name Name donepeziL Yes 5mg QD Take 1 Method i (ARICEPT) 5 5-11 tablet (5 st MG tablet 14:04: mg total) Hos joann 28 by mouth l nightly. cholecalcif Yes 2000U QD Take 1 Met hodi les, 5-[address] vitamin D3, 14:04: (2,000 Hosp tre 50 mcg 28 Units l (2,000 total) by unit) mouth capsule daily. capsule acetaminoph 2023-0 Yes 650mg Q.5D Take 2 Met hodi en 5-[address] (TYLENOL) 14:04: (650 mg Hospi ta 325 MG 28 total) by l tablet mouth 2 (two) times a day as needed (pain). allopurinoL 2023-0 Yes 100mg QD Take 100 M ethodi (ZYLOPRIM) 5-[address] 100 MG 14:04: mouth Hospita tablet 28 daily. l aspirin 2023-0 Yes 81mg QD Take 1 Methodi (ECOTRIN) 5-11 tablet (81 st 81 MG 14:04: mg total) Hospita enteric 28 by mouth l coated daily. tablet hydrALAZINE 2023-0 Yes 25mg Q.[id number] Take 1 Methodi (APRESOLINE 5-11 [id number] tablet (25 st ) 25 MG 14:04: 3D mg total) Hospi ta tablet 28 by mouth 3 l (three) times a day. ergocalcife 2023-0 Yes [id number] Q7D Take 1 Me thodi rol 5-[address] (VITAMIN 14:04: (50,000 Hospit a D2) 50,000 28 Units l unit total) by capsule mouth once a week. isosorbide 2023-0 Yes 120mg QD Take 1 Meth solitario mononitrate 5-[address] (IMDUR) 120 14:04: (120 mg Hos joann MG 24 hr 28 total) by l tablet mouth daily. memantine 2023-0 Yes 5mg QD Take 1 Method i (NAMENDA) 5 5-11 tablet (5 st MG tablet 14:04: mg total) Hos joann 28 by mouth l daily. NIFEdipine 2023-0 Yes 90mg QD Take 1 Metho di ER 5-11 tablet (90 st (PROCARDIA 14:04: mg total) Ho spita XL) 90 MG 28 by mouth l 24 hr daily. tablet pantoprazol 2023-0 Yes 40mg QD Take 1 Meth solitario e 5-11 tablet (40 st (PROTONIX) 14:04: mg total) Ho spita 40 MG EC 28 by mouth l tablet daily. vit B 2023-0 Yes 1{tbl} QD Take 1 Methodi complex-vit 5-[address] erickson 14:04: mouth Hospita C-folic 28 daily. l acid (Radha-Arnie) 0.8 mg tablet labetaloL Yes 200mg Q.[id number] Take 1 Methodi (NORMODYNE) 5-[id number] 200 MG 14:04: 3D (200 mg Hospita tablet 28 total) by l mouth 3 (three) times a day. lidocaine-p 2022- No Apply Meth solitario rilocaine 04-01 07-[address] (EMLA) 00:00: 04:59 as needed Hospi ta 2.5-2.5 % 00 :00 for mild l cream pain. Apply to area 30-45 minutes prior to dialysis treatment. aspirin 2021- No 1 (one) Method i (ECOTRIN) 02-[address] 81 MG 11:06: 00:00 day Hospita enteric 03 :00 l coated tablet ergocalcife 2021- No [id number] Q7D Take Met hodi rol 01-07 50,000 [address] (VITAMIN 00:00: 00:00 Units by Hosp tre D2) 50,000 00 :00 mouth once l unit a week. capsule memantine 2021- No 5mg QD Take 5 mg Me thodi (NAMENDA) 5 01-[address] MG tablet 00:00: 00:00 daily. Hospi ta 00 :00 l Radha-Arnie 2021- No TAKE 1 Metho di 0.8 mg 12-[address] tablet 00:00: 00:00 MOUTH Hospita 00 :00 DAILY WITH l LARGEST MEAL OF THE DAY isosorbide 2020-09- No 120mg QD Take 120 M ethodi mononitrate - mg by st (IMDUR) 120 00:00: 00:00 mouth Hosp tre MG 24 hr 00 :00 daily. l tablet NIFEdipine 2020-09- No 90mg QD Take 90 mg Methodi CC (ADALAT 02-[address] CC) 90 MG 00:00: 00:00 daily. Hospi ta 24 hr 00 :00 l tablet pantoprazol 2020-09- No 40mg QD Take 40 mg Methodi e 2-31 05-[address] (PROTONIX) 00:00: 00:00 daily. Hosp tre 40 MG EC 00 :00 l tablet allopurinoL 2020-09- No Metho di (ZYLOPRIM) - st 100 MG 00:00: 00:00 Hospita tablet 00 :00 l hydrALAZINE 2020-09- No Metho di (APRESOLINE 10-07- st ) 25 MG 00:00: 00:00 Hospita tablet 00 :00 l aspirin 81 2020-09 Yes 81mg QD Take [address] MG EC -04 by mouth [facility] tablet 18:57: daily. [address] glimepiride 2020-09 Yes 1mg Take [address] (AMARYL) 1 04 by mouth [facility] MG tablet 18:57: every [place] [address] morning Center before breakfast . simvastatin 2020-09 Yes 40mg QD Take [address] (ZOCOR) 40 04 by mouth [facility]ukes MG tablet 18:57: nightly. [address] senna-docus 2020-09- No 1{tbl} Q.5D Take [address] ate 09-17 tablet by [facility]ukes (SENOKOT S) 00:00: 23:59 mouth 2 Me dical 8.6-50 mg 00 :00 (two) Center per tablet times daily. labetaloL 2020-09- No 200mg Q.[id number] Take [address] (NORMODYNE) 0-31 10- [id number] tablet [facility]ukes 200 MG 00:00: 23:59 3D (200 mg Medical tablet 00 :00 total) by Center mouth 3 (three) times daily 7 am ,2 pm , 10 pm. labetaloL 2020-09- No Methodi (NORMODYNE) 0- st 200 MG 00:00: 00:00 Hospita tablet 00 :00 l acetaminoph 2020-09- No Metho di en 0- 05- st (TYLENOL) 00:00: 00:00 Hospita 325 MG 00 :00 l tablet Vital Signs Vital Name Observation Time Observation Value Comments Source WEIGHT 2021-07-18 05:00:00 54.885 kg WEIGHT 2021-07-17 04:53:00 55.157 kg WEIGHT 2021-07-16 04:15:00 55.611 kg WEIGHT 2021-07-15 06:00:00 54.976 kg WEIGHT 2021-07-12 01:00:00 61.689 kg WEIGHT 2021-07-11 03:00:00 57.607 kg HEIGHT 2021-07-09 05:00:00 160 cm WEIGHT 2021-07-09 00:45:00 55.475 kg WEIGHT 2021-07-18 05:00:00 54.885 kg WEIGHT 2021-07-17 04:53:00 55.157 kg WEIGHT 2021-07-16 04:15:00 55.611 kg WEIGHT 2021-07-15 06:00:00 54.976 kg WEIGHT 2021-07-12 01:00:00 61.689 kg WEIGHT 2021-07-11 03:00:00 57.607 kg HEIGHT 2021-07-09 05:00:00 160 cm WEIGHT 2021-07-09 00:45:00 55.475 kg Systolic blood 2023-01-22 18:59:00 167 mm[Hg] [facility] pressure Diastolic blood 2023-01-22 18:59:00 68 mm[Hg] [facility] pressure Heart rate 2023-01-22 18:59:00 79 /min [facility] Body temperature 2023-01-22 18:59:00 36.44 Kalie [facility] Body height 2023-01-22 18:59:00 160 cm [facility] Oxygen saturation in 2023-01-22 18:59:00 100 /min [facility] Arterial blood by Pulse oximetry Body weight 2022-10-23 19:01:00 57.153 kg [facility] BMI 2022-10-23 19:01:00 22.32 kg/m2 [facility] Respiratory rate 2022-02-06 17:37:04 16 /min [facility] Procedures Procedure Date / Time Performing Clinician Source Performed US CAROTID DUPLEX 2023-01-22 19:00:00 Osmel Lopez [facility] BILATERAL [facility] POC GLUCOSE 2022-02-06 16:08:00 Nataly Jackson [facility] Ho spital OR [place] < 1 HOUR 2022-02-06 16:00:00 Arslan Betts spitimbo INSERTION, CATHETER, 2022-02-06 15:19:00 Elton Gómez [facility] CENTRAL VENOUS, TUNNELED, WITH PORT, WITH C-ARM FLUOROSCOPIC GUIDANCE TYPE AND SCREEN 2022-02-06 14:49:00 Rahul Fernandez janeth Mendieta COVID-19 QUALITATIVE 2022-02-06 14:06:00 [facility] RT-PCR XR CHEST 1 VW PORTABLE 2022-02-06 12:30:32 [facility] CBC WITH PLATELET AND 2022-02-06 12:17:00 [facility] DIFFERENTIAL COMPREHENSIVE METABOLIC 2022-02-06 12:17:00 [facility] PANEL PROTHROMBIN TIME WITH INR 2022-02-06 12:17:00 [facility] PARTIAL THROMBOPLASTIN 2022-02-06 12:17:00 [facility] TIME (PTT) ESTIMATED GFR 2022-02-06 12:17:00 [facility] spitimbo Plan of Care Planned Activity Planned Date Details Comments Source Future Scheduled 2023-05-[address] [facility] Test 00:00:00 (Season Ended) [code = [facility] INFLUENZA VACCINE (Season Ended)] Future Scheduled 2023-02-03 COVID-19 VACCINE (#1) [facility] 12:02:56 [code = COVID-19 VACCINE (#1)] Future Scheduled 2023-02-03 Pneumococcal Vaccine: [facility] Test 12:02:56 Pediatrics (0 to 5 Years) and At-Risk Patients (6 to 64 Years) (1 - PCV) [code = Pneumococcal Vaccine: Pediatrics (0 to 5 Years) and At-Risk Patients (6 to 64 Years) (1 - PCV)] Future Scheduled 2023-02-03 Hepatitis C screening [facility] Test 12:02:56 (procedure) [code = 724965067] Future Scheduled 2023-02-03 SHINGLES VACCINES (1 [facility] Test 12:02:56 of 2) [code = SHINGLES VACCINES (1 of 2)] Future Scheduled 2023-02-03 Screening for [facility] Test 12:02:56 malignant neoplasm of cervix (procedure) [code = 878996429] Future Scheduled 2023-02-03 BREAST CANCER [facility] Test 12:02:56 SCREENING [code = BREAST CANCER SCREENING] Future Scheduled 2023-02-03 COLONOSCOPY SCREENING [facility] Test 12:02:56 [code = COLONOSCOPY SCREENING] Future Scheduled 2023-02-03 Screening for [facility] Test 12:02:56 malignant neoplasm of lung (procedure) [code = 777079109] Future Scheduled 2023-02-03 INFLUENZA VACCINE Method [facility] Test 12:02:56 [code = INFLUENZA VACCINE] Future Scheduled 2022-09-[address] [facility] Test 00:00:00 (12+) [code = Medical Center DEPRESSION SCREENING (12+)] Future Scheduled 2022-07-[address] [facility] Test 00:00:00 Counseling and Medical Cente r Screening (12+) [code = Tobacco Cessation Counseling and Screening (12+)] Future Scheduled 2022-02-[address] Test 00:00:00 (procedure) [code = Medical Center 13905509] Future Scheduled 2019-08-[address] [facility] Test 00:00:00 measurement [facility] Center (procedure) [code = 35896717] Future Scheduled [address] [facility] Test 00:00:00 malignant neoplasm of Medica l Center lung (procedure) [code = 955342389] Future Scheduled 2011 SHINGLES VACCINES ([address] [facility] Test 00:00:00 of 2) [code = SHINGLES Medic al Center VACCINES (1 of 2)] Future Scheduled [address] [facility] Test 00:00:00 malignant neoplasm of Medica l Center cervix (procedure) [code = 996886365] Future Scheduled 1980 DTAP/TDAP/TD [facility]ACCINES [facility] Test 00:00:00 (1 - Tdap) [code = Medical C enter DTAP/TDAP/TD VACCINES (1 - Tdap)] Future Scheduled 1979 HEPATITIS C SCRE[facility]ING [facility] Test 00:00:00 [code = HEPATITIS C Medical Center SCREENING] Future Scheduled [address] EYE EXAM [facility] Test 00:00:00 [code = DIABETIC EYE Medical Center EXAM] Future Scheduled [address] [facility] Test 00:00:00 examination Medical Center (regime/therapy) [code = 012419828] Future Scheduled 1971 Urine screening for [facility] Test 00:00:00 protein (procedure) Medical Center [code = 697995884] Future Scheduled [address] [facility] Test 00:00:00 0-64 YRS (1 - PCV) Medical C enter [code = PNEUMOCOCCAL VACCINE 0-64 YRS (1 - PCV)] Future Scheduled 1960 COVID-19 VACCINE (#1) [facility] Test 00:00:00 [code = COVID-[address] VACCINE (#1)] Future Scheduled [address] [facility] Test 00:00:00 malignant neoplasm of Medica l Center breast (procedure) [code = 162176154] Future Scheduled [address] [facility] Test 00:00:00 (combo) [code = CT Medical C enter Colonography (combo)] Future Scheduled [address] [facility] Test 00:00:00 malignant neoplasm of Medica l Center colon (procedure) [code = 023374177] Future Scheduled [address] [facility] Test 00:00:00 malignant neoplasm of Medica l Center colon (procedure) [code = 238061569] Future Scheduled [address] [facility] Test 00:00:00 malignant neoplasm of Medica l Center colon (procedure) [code = 736878785] Future Scheduled [address] [facility] Test 00:00:00 malignant neoplasm of Medica l Center colon (procedure) [code = 311907214] Future Scheduled 1960 Sigmoidoscopy [code = [facility] Test 00:00:00 Sigmoidoscopy] Medical Cente r Encounters Start End Encounter Admission Attending Care Care Encounter Source Date/Time Date/Time Type Type Clinicians Facility Department ID 2021-07-08 Inpatient ER BRIAN CHAN Neurology [id number] 16:50:34 [facility] 2023-01-22 2023-01-22 Office Jono, 1.2.840.1 [id number] Methodi 14:30:00 14:35:22 Visit Elvia 02264.1.[address] [place] 3.430.2.7 Hosp tre .3.066315 l .8 2023-01-22 2023-01-22 Outpatient [facility] [id number] [place] 00:00:00 00:00:00 OSMEL Cervantes [facility] 2023-01-22 2023-01-22 Travel 1.2.840.1 1.2.996.124 [id number] Methodi 00:00:00 00:00:[address] 3.430.2.7 0.2.7.3.698 Ho spita .3.799381 084.8 l .8 2023-01-22 2023-01-22 Outpatient [facility] [id number] [address] [place] [address] 00:00:00 00:00:[address] 2022-10-23 2022-10-23 Office Jono, 1.2.840.1 [id number] Methodi 13:00:00 13:38:29 Visit Elvia 04786.1.[address] [place] 3.430.2.7 Hosp tre .3.152014 l .8 2022-10-23 2022-10-23 Travel 1.2.840.1 1.2.451.219 [id number] Methodi 00:00:00 00:00:[address] 3.430.2.7 0.2.7.3.698 Ho spita .3.179153 084.8 l .8 2022-10-23 2022-10-23 Outpatient [facility] [id number] [place] 00:00:00 00:00:[address] 2022-07-22 2022-07-22 Office Jono, 1.2.840.1 [id number] Methodi 11:00:00 11:33:06 Visit Elvia 73283.1.[address] [place] 3.430.2.7 Hosp tre .3.565723 l .8 2022-07-22 2022-07-22 Travel 1.2.840.1 1.2.370.655 [id number] Methodi 00:00:00 00:00:[address] 3.430.2.7 0.2.7.3.698 Ho spita .3.445128 084.8 l .8 2022-07-22 2022-07-22 Outpatient [facility] [id number] [place] 00:00:00 00:00:[address] 2022-07-15 2022-07-15 Telephone Jono, 1.2.840.1 [id number] Methodi 00:00:00 00:00:[address] [place] 3.430.2.7 Hosp tre .3.600021 l .8 2022-07-15 2022-07-15 Telephone Esther, 1.2.840.1 [id number] Methodi 00:00:00 00:00:00 Crysagavinria 65255.1.1 835 s t 3.430.2.7 Hospit a .3.640623 l .8 2022-06-24 2022-06-24 Office Jono, 1.2.840.1 [id number] Methodi 15:00:00 15:25:51 Visit Elvia 93847.1.[address] [place] 3.430.2.7 Hosp tre .3.845860 l .8 2022-06-24 2022-06-24 Travel 1.2.840.1 1.2.365.671 2938 [id number] Methodi 00:00:00 00:00:[address] 3.430.2.7 0.2.7.3.698 Ho spita .3.200973 084.8 l .8 2022-06-242022-06-24 Outpatient [facility] [id number] [place] 00:00:00 00:00:[address] 2022-06-03 2022-06-03 Office De La Cruz, 1.2.840.1 [id number] Methodi 13:30:00 13:56:09 Visit Elvia 95509.1.[address] [place] 3.430.2.7 Hosp tre .3.556859 l .8 2022-06-03 2022-06-03 Travel 1.2.840.1 1.2.441.190 [id number] [id number] Methodi 00:00:00 00:00:[address] 3.430.2.7 0.2.7.3.698 Ho spita .3.928109 084.8 l .8 2022-06-03 2022-06-03 Outpatient [facility] [id number] [place] 00:00:00 00:00:[address] 2022-05-26 2022-05-26 Telephone Lopez, 1.2.840.1 [id number] Methodi 00:00:00 00:00:[address] [facility] 3.430.2.7 Hosp tre .3.278188 l .8 2022-04-30 2022-04-30 Telephone De La Cruz, 1.2.840.1 [id number] Methodi 00:00:00 00:00:[address] [place] 3.430.2.7 Hosp tre .3.008287 l .8 2022-04-30 2022-04-30 Telephone Thien, 1.2.840.1 [id number] Methodi 00:00:00 00:00:[address] 3.430.2.7 Hospit a .3.474593 l .8 2022-04-01 2022-04-01 Office Lopez, 1.2.840.1 [id number] Methodi 10:30:00 13:49:25 Visit Osmel 15220.1.[address] [facility] 3.430.2.7 Hosp tre .3.661773 l .8 2022-04-01 2022-04-01 Telephone John, 1.2.840.1 [id number] Methodi 00:00:00 00:00:[address] [facility] 3.430.2.7 Hosp tre .3.375315 l .8 2022-04-01 2022-04-01 Travel 1.2.840.1 1.2.100.385 1701 [id number] Methodi 00:00:00 00:00:[address] 3.430.2.7 0.2.7.3.698 Ho spita .3.558117 084.8 l .8 2022-04-01 2022-04-01 Outpatient [facility] [id number] [place] 00:00:00 00:00:00 OSMEL [address] 2022-02-20 2022-02-20 Office John, 1.2.840.1 [id number] Methodi 10:30:00 11:07:19 Visit Osmel 94415.1.1 977 [facility] 3.430.2.7 Hosp tre .3.879982 l .8 2022-02-20 2022-02-20 Travel 1.2.840.1 1.2.356.980 [id number] Methodi 00:00:00 00:00:[address] 3.430.2.7 0.2.7.3.698 Ho spita .3.589914 084.8 l .8 2022-02-20 2022-02-20 Outpatient [facility] [id number] [place] 00:00:00 00:00:[address] OSMEL [address] 2022-02-06 2022-02-06 Emergency Gordon, Ricardo 1.2.840.1 [id number] Methodi 06:51:00 14:48:00 Nataly Jackson 16192.1.[address] 3.430.2.7 Hospit a .3.906141 l .8 2022-02-06 2022-02-06 Anesthesia Bernardino Goodson 1.2.840.1 [id number] Methodi 10:19:00 11:09:00 Event Brent Fields 93786.1.[address] 3.430.2.7 Hospit a .3.628957 l .8 2022-02-06 2022-02-06 Surgery Elton Gómez 1.2.840.1 [id number] Methodi 09:50:00 10:55:[address] 3.430.2.7 Hospit a .3.974734 l .8 2022-02-06 2022-02-06 Outpatient [facility] [id number] 954 [place] 00:00:00 00:00:00 NATALY [address] 2022-02-05 2022-02-05 Telephone Thien 1.2.840.1 [id number] Methodi 00:00:00 00:00:[address] 3.430.2.7 Hospit a .3.256670 l .8 2022-01-30 2022-01-30 Outpatient [facility] [id number] [place] 00:00:00 00:00:00 OSMEL 505 Method i 2022-01-28 2022-01-28 [facility] [id number] [place] 00:00:00 00:00:00 OSMEL 449 Method i 2022-01-28 2022-01-28 [facility] [id number] [place] 00:00:00 00:00:00 OSMEL 559 Method i 2021-10-09 2021-10-09 Out[facility] [id number] [place] 00:00:00 00:00:00 OSMEL 117 Method i 2021-07-08 2021-07-18 [facility] [id number] [id number] [facility] 19:39:00 18:57:00 LARA Results Test Description Test Time Test Comments Results Result Comments Source SARS-CoV-2 (COVID-19) RNA [Presence] in Respiratory sp ecimen by 2022-02-06 17:46:20 BRI with probe detection Test Item Value Reference Range Interpretation Comme nts SARS-CoV-2 (COVID-19) RNA [Presence] in Respiratory specimen by Not detected BRI with probe detection (test code = 09545-1) Whether patient is employed in a healthcare setting (test code = Un known 37547-7) Whether the patient has symptoms related to condition of interest U nknown (test code = 27529-0) Whether the patient was hospitalized for condition of interest Unkn own (test code = 29498-9) Whether the patient was admitted to intensive care unit (ICU) for U nknown condition of interest (test code = 01657-5) Whether patient resides in a congregate care setting (test code = U nknown 67067-4) status (test code = 48765-4) Unknown Date and time of symptom onset (test code = 98530-2) Unknown [facility] [id number] 16:09:00 Test Item Value Reference Range Interpretation Comments POC glucose (test code = 102 mg/dL 65-99 H Ope rator Name: 21233-1) Ramses may ID: [id number] able: RN Notified Lab Interpretation (test Abnormal code = 11763-8) [facility] [Presence] in Respiratory specimen by BRI with probe [id number] 16:29:28 Test Item Value Reference Range Interpretation Comments SARS-CoV-2 (COVID-19) RNA Not detected [Presence] in Respiratory specimen by BRI with probe detection (test code = 69562-8) Whether patient is employed in a Unknown healthcare setting (test code = 24501-3) Whether the patient has symptoms Unknown related to condition of interest (test code = 32878-6) Whether the patient was Unknown hospitalized for condition of interest (test code = 79387-2) Whether the patient was admitted Unknown to intensive care unit (ICU) for condition of interest (test code = 97054-4) Whether patient resides in a Unknown congregate care setting (test code = 75131-9) status (test code = Unknown 83555-3) Date and time of symptom onset Unknown (test code = 62443-1) [facility] [id number] 15:39:42 Test Item Value Reference Range Interpretation Comments POC-GLUCOSE METER 142 mg/dL 70-110 H : TESTED A T [facility] [address] (BEAKER) (test code [address], = 1538) [place] [address]: Sack Lifter/Techni ganesh ID = [id number] for Claire Bowman SARS-COV2/RT-PCR ([facility])2021-07-18 11:38:31 Test Item Value Reference Range Interpretation Comments SARS-COV2/RT-PCR (test Negative Not Detected, Negative, code = 5708268) See external report for linked test SARS-COV-2 PERFORMING LAB [facility] (test code = 7511226) Negative result for this test determines that SARS-CoV-2 RNA was not present in the specimen above the Limit of Detection (LOD). However, Negative results do not preclude SARS-CoV-2 infection and should not be used as the sole basis for treatment or patient management decisions. Negative results must be combined with clinical observations, patient history, and epidemiological information. A false negative result may occur if a specimen is improperly collected, transported or handled. A false negative result should be considered if patient's recent exposures or clinical presentation indicate that COVID-19 (SARS-CoV-2) is likely and diagnostic tests for other causes of illness are negative. Re-testing should be considered in cases of suspected false negatives.The limit of detection for this assay is 800 copies/mL.This SARS CoV-2 test is a real-time RT-PCR test intended for the qualitative detection of nucleic acid from SARS-CoV-2 in a nasopharyngeal swab specimen collected from individuals suspected of COVID-19 by their healthcare provider.This test has not been Food and Drug Administration (FDA) cleared or approved. This is a modified version of an approved Emergency Use Authorization (EUA) and is in the process of review by the FDA. Once authorized by the FDA, the issued EUA will be effective until the declaration that circumstances exist justifying the authorization of the emergency use ofin vitro diagnostic tests for detection and/or diagnosis of COVID-19 is terminated under Section 564(b)(2) of the Act or the EUA is revoked under Section 564(g) of the Act.Fact Sheet for Healthcare Prov iders:https://www.Review Trackers/sites/default/files/product/documents/Fact_Sheet_HC _Tbuefkiyz_Wpja_VUOI-MnA-0.pdfFact Sheet for Healthcare Patients:https://www.Review Trackers/sites/default/files/product/docume nts/Coro_Euddl_Mllnvqib_Nemf_FTIX-YrW-6.pdfPerforming Laboratory:[place] [address], [place] [address]RZCO-GFCKYKS METER 2021-07-18 11:07:57 Test Item Value Reference Range Interpretation Comments POC-GLUCOSE METER 122 mg/dL 70-110 H : TESTED A T [facility] [address] (BEAKER) (test code [facility], = 1538) [place] [address] 384: Sack Lifter/Techni ganesh ID = [id number] for Claire Bowman POCT-GLUCOSE [id number] 06:37:23 Test Item Value Reference Range Interpretation Comments POC-GLUCOSE METER 125 mg/dL 70-110 H : TESTED A T [facility] [address] (BEAKER) (test code [facility], = 1538) [place] [address] 384: Sack Lifter/Techni ganesh ID = [id number] for Betty Bella bucio BASIC METABOLIC [id number] 06:35:24 Test Item Value Reference Range Interpretation Comments SODIUM (BEAKER) 135 meq/L 135-148 (test code = 381) POTASSIUM (BEAKER) 3.8 meq/L 3.5-5.5 (test code = 379) CHLORIDE (BEAKER) 101 meq/L 98-106 (test code = 382) CO2 (BEAKER) (test 22 meq/L 20-31 code = 355) BLOOD UREA NITROGEN 33 mg/dL 10-26 H (BEAKER) (test code = 354) CREATININE (BEAKER) 3.97 mg/dL 0.50-1.20 H (test code = 358) GLUCOSE RANDOM 124 mg/dL 70-110 H (BEAKER) (test code = 652) CALCIUM (BEAKER) 9.4 mg/dL 8.5-10.5 (test code = 697) EGFR (BEAKER) (test 12 mL/min/1.73 ESTIMA DUY GFR IS code = 1092) sq m NOT ACCURATE CREATININE CLEARANCE IN PREDICTING GLOMERULAR FILTRATION RATE . ESTIMATED GFR I S NOT APPLICABLE FOR DIALYSIS PATIEN TS. Sack Lifter ID - [id number] 20:36:14 Test Item Value Reference Range Interpretation Comments POC-GLUCOSE METER 135 mg/dL 70-110 H : [facility] [address] [facility] (test code [facility], = 1538) [place] [address]: Sack Lifter/Techni ganesh ID = [id number] for Bella Kiran POCT-GLUCOSE [id number] 16:42:10 Test Item Value Reference Range Interpretation Comments POC-GLUCOSE METER 118 mg/dL 70-110 H : Notified RN/MD: [facility] (test code AT [facility] [address] [facility] = 1538) [facility] [address]: Sack Lifter/Techni ganesh ID = [id number] for Anand stout Mario Alberto POCT-GLUCOSE [id number] 11:21:09 Test Item Value Reference Range Interpretation Comments POC-GLUCOSE METER 119 mg/dL 70-110 H : Notified RN/MD: [facility] (test code AT [facility] [address] [facility] [address] = 1538) [place] [address]: Sack Lifter/Techni ganesh ID = [id number] for Shannon Guerra POCT-GLUCOSE [id number] 06:33:44 Test Item Value Reference Range Interpretation Comments POC-GLUCOSE METER 113 mg/dL 70-110 H : TESTED A T [facility] [address] (BEAKER) (test code [facility], = 1538) [place] [address]: Sack Lifter/Techni ganesh ID = [id number] for Bella Kiran BASIC METABOLIC [id number] 06:02:43 Test Item Value Reference Range Interpretation Comments SODIUM (BEAKER) 136 meq/L 135-148 (test code = 381) POTASSIUM (BEAKER) 3.8 meq/L 3.5-5.5 (test code = 379) CHLORIDE (BEAKER) 101 meq/L 98-106 (test code = 382) CO2 (BEAKER) (test 21 meq/L 20-31 code = 355) BLOOD UREA NITROGEN 32 mg/dL 10-26 H (BEAKER) (test code = 354) CREATININE (BEAKER) 4.12 mg/dL 0.50-1.20 H (test code = 358) GLUCOSE RANDOM 107 mg/dL 70-110 (BEAKER) (test code = 652) CALCIUM (BEAKER) 9.7 mg/dL 8.5-10.5 (test code = 697) EGFR (BEAKER) (test 11 mL/min/1.73 ESTIMA DUY GFR IS code = 1092) sq m NOT ACCURATE CREATININE CLEARANCE IN PREDICTING GLOMERULAR FILTRATION RATE . ESTIMATED GFR I S NOT APPLICABLE FOR DIALYSIS PATIEN TS. Sack Lifter ID - [id number] 20:56:43 Test Item Value Reference Range Interpretation Comments POC-GLUCOSE METER 164 mg/dL 70-110 H : TESTED A T [facility] [address] (BEAKER) (test code [address], = 1538) [place] [address]: Sack Lifter/Techni ganesh ID = [id number] for Bella Kiran POCT-GLUCOSE [id number] 15:00:53 Test Item Value Reference Range Interpretation Comments POC-GLUCOSE METER 141 mg/dL 70-110 H : TESTED A T [facility] [address] (BEAKER) (test code [address], = 1538) [place] [address]: Sack Lifter/Techni ganesh ID = [id number] for Olinda Osbornen POCT-GLUCOSE [id number] 11:25:32 Test Item Value Reference Range Interpretation Comments POC-GLUCOSE METER 114 mg/dL 70-110 H : TESTED A T [facility] [address] (BEAKER) (test code [address], = 1538) [place] [address]: Sack Lifter/Techni ganesh ID = [id number] for Jacky inorJessycen POCT-GLUCOSE [id number] 06:14:30 Test Item Value Reference Range Interpretation Comments POC-GLUCOSE METER 106 mg/dL 70-110 : TESTED A T [facility] [address] (BEAKER) (test code [facility] [address] [facility], = 1538) [facility] 77 384: Sack Lifter/Techni ganesh ID = [id number] for Bambi Fonseca BASIC METABOLIC [id number] 05:12:00 Test Item Value Reference Range Interpretation Comments SODIUM (BEAKER) 134 meq/L 135-148 L (test code = 381) POTASSIUM (BEAKER) 4.0 meq/L 3.5-5.5 (test code = 379) CHLORIDE (BEAKER) 100 meq/L 98-106 (test code = 382) CO2 (BEAKER) (test 20 meq/L 20-31 code = 355) ANION GAP (BEAKER) 18 meq/L (test code = 345) BLOOD UREA NITROGEN 30 mg/dL 10-26 H (BEAKER) (test code = 354) CREATININE (BEAKER) 3.91 mg/dL 0.50-1.20 H (test code = 358) BUN/CREATININE RATIO 7.6726 (BEAKER) (test code = 1800) GLUCOSE RANDOM 103 mg/dL 70-110 (BEAKER) (test code = 652) CALCIUM (BEAKER) 9.5 mg/dL 8.5-10.5 (test code = 697) EGFR (BEAKER) (test 12 mL/min/1.73 ESTIMA DUY GFR IS code = 1092) sq m NOT ACCURATE CREATININE CLEARANCE IN PREDICTING GLOMERULAR FILTRATION RATE . ESTIMATED GFR I S NOT APPLICABLE FOR DIALYSIS PATIEN TS. Sack Lifter ID - [id number] W/PLT COUNT & AUTO [id number] 04:21:05 Test Item Value Reference Range Interpretation Comments WHITE BLOOD CELL COUNT (BEAKER) 8.4 K/ L 4.0-10.0 (test code = 775) RED BLOOD CELL COUNT (BEAKER) 3.23 M/ L 4.00-5.00 L (test code = 761) HEMOGLOBIN (BEAKER) (test code = 9.0 GM/DL 12.0-15.5 L 410) HEMATOCRIT (BEAKER) (test code = 27.1 % 36.0-46.0 L 411) MEAN CORPUSCULAR VOLUME (BEAKER) 83.9 fL 82.0-99.0 (test code = 753) MEAN CORPUSCULAR HEMOGLOBIN 27.9 pg 27.0-33.0 (BEAKER) (test code = 751) MEAN CORPUSCULAR HEMOGLOBIN CONC 33.2 GM/DL 32.0-36.0 (BEAKER) (test code = 752) RED CELL DISTRIBUTION WIDTH 13.5 % 12.0-15.0 (BEAKER) (test code = 412) PLATELET COUNT (BEAKER) (test 213 K/CU MM 150-430 code = 756) MEAN PLATELET VOLUME (BEAKER) 11.2 fL 6.0-11.5 (test code = 754) NUCLEATED RED BLOOD CELLS 0 /100 WBC 0-0 (BEAKER) (test code = 413) NEUTROPHILS RELATIVE PERCENT 61 % (BEAKER) (test code = 429) LYMPHOCYTES RELATIVE PERCENT 29 % (BEAKER) (test code = 430) MONOCYTES RELATIVE PERCENT 8 % (BEAKER) (test code = 431) EOSINOPHILS RELATIVE PERCENT 2 % (BEAKER) (test code = 432) BASOPHILS RELATIVE PERCENT 1 % (BEAKER) (test code = 437) NEUTROPHILS ABSOLUTE COUNT 5.07 K/ L 1.80-8.00 (BEAKER) (test code = 670) LYMPHOCYTES ABSOLUTE COUNT 2.41 K/ L 1.48-4.50 (BEAKER) (test code = 414) MONOCYTES ABSOLUTE COUNT (BEAKER) 0.65 K/ L 0.00-1.30 (test code = 415) EOSINOPHILS ABSOLUTE COUNT 0.17 K/ L 0.00-0.50 (BEAKER) (test code = 416) BASOPHILS ABSOLUTE COUNT (BEAKER) 0.04 K/ L 0.00-0.20 (test code = 417) IMMATURE GRANULOCYTES-RELATIVE 1 % 0-0 H PERCENT (BEAKER) (test code = 2801) POCT-GLUCOSE [id number] 20:59:31 Test Item Value Reference Range Interpretation Comments POC-GLUCOSE METER 112 mg/dL 70-110 H : TESTED A T [facility] [address] (BEAKER) (test code [facility], = 1538) [place] [address]: Sack Lifter/Techni ganesh ID = [id number] for Bambi Fonseca POCT-GLUCOSE [id number] 16:21:16 Test Item Value Reference Range Interpretation Comments POC-GLUCOSE METER 151 mg/dL 70-110 H : TESTED A T [facility] [address] (BEAKER) (test code [address], = 1538) [place] [address]: Sack Lifter/Techni ganesh ID = [id number] for Zeeshan Rodríguez POCT-GLUCOSE [id number] 12:19:25 Test Item Value Reference Range Interpretation Comments POC-GLUCOSE METER 127 mg/dL 70-110 H : TESTED A T [facility] [address] (BEAKER) (test code [address], = 1538) [place] [address]: Sack Lifter/Techni ganesh ID = [id number] for Consuelo Rodrígueznnandrew POCT-GLUCOSE [id number] 05:54:36 Test Item Value Reference Range Interpretation Comments POC-GLUCOSE METER 127 mg/dL 70-110 H : TESTED A T [facility] [address] (BEAKER) (test code [address], = 1538) [place] [address]: Sack Lifter/Techni ganesh ID = [id number] for Betty bucioBella BASIC METABOLIC [id number] 05:44:55 Test Item Value Reference Range Interpretation Comments SODIUM (BEAKER) 135 meq/L 135-148 (test code = 381) POTASSIUM (BEAKER) 3.3 meq/L 3.5-5.5 L (test code = 379) CHLORIDE (BEAKER) 100 meq/L 98-106 (test code = 382) CO2 (BEAKER) (test 22 meq/L - code = 355) BLOOD UREA NITROGEN 31 mg/dL 10-26 H (BEAKER) (test code = 354) CREATININE (BEAKER) 3.48 mg/dL 0.50-1.20 H (test code = 358) GLUCOSE RANDOM 118 mg/dL 70-110 H (BEAKER) (test code = 652) CALCIUM (BEAKER) 9.2 mg/dL 8.5-10.5 (test code = 697) EGFR (BEAKER) (test 13 mL/min/1.73 ESTIMA DUY GFR IS code = 1092) sq m NOT ACCURATE CREATININE CLEARANCE IN PREDICTING GLOMERULAR FILTRATION RATE . ESTIMATED GFR I S NOT APPLICABLE FOR DIALYSIS PATIEN TS. Sack Lifter ID - [id number] 20:24:52 Test Item Value Reference Range Interpretation Comments POC-GLUCOSE METER 148 mg/dL 70-110 H : TESTED A T [facility] [address] (BEAKER) (test code [address] [facility], = 1538) [place] [address]: Sack Lifter/Techni ganesh ID = [id number] for Bella Kiran POCT-GLUCOSE [id number] 17:02:22 Test Item Value Reference Range Interpretation Comments POC-GLUCOSE METER 145 mg/dL 70-110 H : TESTED A T [facility] [address] (BEAKER) (test code [address], = 1538) [place] [address]: Sack Lifter/Techni ganesh ID = [id number] for K alu, Onelia POCT-GLUCOSE [id number] 10:34:41 Test Item Value Reference Range Interpretation Comments POC-GLUCOSE METER 141 mg/dL 70-110 H : TESTED A T [facility] [address] (BEAKER) (test code [facility] [address], = 1538) [place] [address]: Sack Lifter/Techni ganesh ID = [id number] for K alu, Onelia POCT-GLUCOSE [id number] 06:25:25 Test Item Value Reference Range Interpretation Comments POC-GLUCOSE METER 114 mg/dL 70-110 H : TESTED A T [facility] [address] (BEAKER) (test code [facility] [address], = 1538) [place] [address]: Sack Lifter/Techni ganesh ID = [id number] for Kwabena Euceda COMPREHENSIVE METABOLIC [id number] 05:29:01 Test Item Value Reference Range Interpretation Comments TOTAL PROTEIN 5.9 gm/dL 6.0-8.5 L (BEAKER) (test code = 770) ALBUMIN (BEAKER) 3.5 g/dL 3.5-5.0 (test code = 1145) ALKALINE PHOSPHATASE 84 U/L 30-115 (BEAKER) (test code = 346) BILIRUBIN TOTAL 0.2 mg/dL 0.1-1.3 (BEAKER) (test code = 377) SODIUM (BEAKER) (test 134 meq/L 135-148 L code = 381) POTASSIUM (BEAKER) 3.5 meq/L 3.5-5.5 (test code = 379) CHLORIDE (BEAKER) 98 meq/L 98-106 (test code = 382) CO2 (BEAKER) (test 24 meq/L 20-31 code = 355) BLOOD UREA NITROGEN 31 mg/dL 10-26 H (BEAKER) (test code = 354) CREATININE (BEAKER) 3.47 mg/dL 0.50-1.20 H (test code = 358) GLUCOSE RANDOM 120 mg/dL 70-110 H (BEAKER) (test code = 652) CALCIUM (BEAKER) 9.4 mg/dL 8.5-10.5 (test code = 697) AST (SGOT) (BEAKER) 10 U/L 5-40 (test code = 353) ALT (SGPT) (BEAKER) 7 U/L 6-50 (test code = 347) EGFR (BEAKER) (test 13 mL/min/1.73 ESTIMA DUY GFR IS code = 1092) sq m NOT ACCURATE CREATININE CLEARANCE IN PREDICTING GLOMERULAR FILTRATION RATE . ESTIMATED GFR I S NOT APPLICABLE FOR DIALYSIS PATIEN TS. Sack Lifter ID - [id number] NATRIURETIC FACTOR (BNP)2021-07-14 05:20:46 Test Item Value Reference Range Interpretation Comments B-TYPE NATRIURETIC PEPTIDE (BEAKER) 294 pg/mL 0-100 H (test code = 700) Sack Lifter ID - [id number] 22:46:56 Test Item Value Reference Range Interpretation Comments POC-GLUCOSE METER 131 mg/dL 70-110 H : TESTED A T [facility] [address] (BEAKER) (test code [facility], = 1538) [place] [address]: Sack Lifter/Techni ganesh ID = [id number] for Kwabena Euceda POCT-GLUCOSE [id number] 16:12:55 Test Item Value Reference Range Interpretation Comments POC-GLUCOSE METER 167 mg/dL 70-110 H : TESTED A T [facility] [address] (BEAKER) (test code [facility], = 1538) [place] [address]: Sack Lifter/Techni ganesh ID = [id number] for K charles Onelia BASIC METABOLIC [id number] 12:01:34 Test Item Value Reference Range Interpretation Comments SODIUM (BEAKER) 137 meq/L 135-148 (test code = 381) POTASSIUM (BEAKER) 3.9 meq/L 3.5-5.5 (test code = 379) CHLORIDE (BEAKER) 98 meq/L 98-106 (test code = 382) CO2 (BEAKER) (test 23 meq/L 20-31 code = 355) BLOOD UREA NITROGEN 31 mg/dL 10-26 H (BEAKER) (test code = 354) CREATININE (BEAKER) 3.56 mg/dL 0.50-1.20 H (test code = 358) GLUCOSE RANDOM 155 mg/dL 70-110 H (BEAKER) (test code = 652) CALCIUM (BEAKER) 9.8 mg/dL 8.5-10.5 (test code = 697) EGFR (BEAKER) (test 13 mL/min/1.73 ESTIMA DUY GFR IS code = 1092) sq m NOT ACCURATE CREATININE CLEARANCE IN PREDICTING GLOMERULAR FILTRATION RATE . ESTIMATED GFR I S NOT APPLICABLE FOR DIALYSIS PATIEN TS. Sack Lifter ID - [id number] 10:58:11 Test Item Value Reference Range Interpretation Comments POC-GLUCOSE METER 151 mg/dL 70-110 H : TESTED A T [facility] [address] (BEAKER) (test code [facility] [address] [facility], = 1538) [place] [address]: Sack Lifter/Techni ganesh ID = [id number] for K charles, Onelia POCT-GLUCOSE [id number] 06:01:49 Test Item Value Reference Range Interpretation Comments POC-GLUCOSE METER 118 mg/dL 70-110 H : TESTED A T [facility] [address] (BEAKER) (test code [facility] [address] [facility], = 1538) [place] [address]: Sack Lifter/Techni ganesh ID = [id number] for Ronak rodrigueztim Jordon POCT-GLUCOSE [id number] 21:45:03 Test Item Value Reference Range Interpretation Comments POC-GLUCOSE METER 138 mg/dL 70-110 H : TESTED A T [facility] [address] (BEAKER) (test code [facility] [address] [facility], = 1538) [place] [address]: Sack Lifter/Techni ganesh ID = [id number] for Ronak childers Jordon POCT-GLUCOSE [id number] 15:31:43 Test Item Value Reference Range Interpretation Comments POC-GLUCOSE METER 152 mg/dL 70-110 H : TESTED A T [facility] [address] (BEAKER) (test code [facility] [address] [facility], = 1538) [place] [address]: Sack Lifter/Techni ganesh ID = [id number] for Claire Bowman POCT-GLUCOSE [id number] 11:21:07 Test Item Value Reference Range Interpretation Comments POC-GLUCOSE METER 152 mg/dL 70-110 H : TESTED A T [facility] [address] (BEAKER) (test code [facility] [address] [facility], = 1538) [place] [address]: Sack Lifter/Techni ganesh ID = [id number] for Ashley Condon BASIC METABOLIC [id number] 10:08:53 Test Item Value Reference Range Interpretation Comments SODIUM (BEAKER) 135 meq/L 135-148 (test code = 381) POTASSIUM (BEAKER) 3.7 meq/L 3.5-5.5 (test code = 379) CHLORIDE (BEAKER) 101 meq/L 98-106 (test code = 382) CO2 (BEAKER) (test 21 meq/L 20-31 code = 355) BLOOD UREA NITROGEN 29 mg/dL 10-26 H (BEAKER) (test code = 354) CREATININE (BEAKER) 3.36 mg/dL 0.50-1.20 H (test code = 358) GLUCOSE RANDOM 129 mg/dL 70-110 H (BEAKER) (test code = 652) CALCIUM (BEAKER) 9.5 mg/dL 8.5-10.5 (test code = 697) EGFR (BEAKER) (test 14 mL/min/1.73 ESTIMA DUY GFR IS code = 1092) sq m NOT ACCURATE CREATININE CLEARANCE IN PREDICTING GLOMERULAR FILTRATION RATE . ESTIMATED GFR I S NOT APPLICABLE FOR DIALYSIS PATIEN TS. Sack Lifter ID - [id number] 20:56:24 Test Item Value Reference Range Interpretation Comments POC-GLUCOSE METER 141 mg/dL 70-110 H : TESTED A T [facility] [address] (BEAKER) (test code [facility], = 1538) [place] [address]: Sack Lifter/Techni ganesh ID = [id number] for Jomar Brown POCT-GLUCOSE [id number] 17:13:07 Test Item Value Reference Range Interpretation Comments POC-GLUCOSE METER 102 mg/dL 70-110 : TESTED A T [facility] [address] (BEAKER) (test code [facility], = 1538) [place] [address]: Sack Lifter/Techni ganesh ID = [id number] for Christen Nunes MR, SPINE, CERVICAL, WITHOUT [id number] 15:20:00Unlisted Reason for Exam - Click Yes and Enter Reason Below->YesUnlisted Reason for Exam->evaluate [facility] : 1960 Sex: FFINALREPORT MR, SPINE, CERVICAL, WITHOUT CONTRAST INDICATION: Unlisted Reason for Examevaluate for ADEM TECHNIQUE: Multiplanar, multisequence MR imaging of the cervical spine was performed without intravenous contrast. COMPARISON: None. FINDINGS: Cord: Normal caliber. No signal abnormalities. Osseous structures: Preserved vertebral body heights. No abnormal signal characteristics. Mild to moderate degenerative changes at all levels. The craniocervical junction is normal. Discs: Normal height and signal intensity. Findings by level:C2/C3: Central disc protrusion without canal narrowing. No foraminal stenosis. C3/C4: Central disc and endplate disease. Mild canal narrowing. Mild bilateral foraminal stenosis. C4/C5: Broad disc bulge with mild canal narrowing. No foraminal compromise. C5/C6: Broad central disc bulge. Mild to moderate canal narrowing. Moderate bilateral foraminal stenosis. C6/C7: Degenerative endplate and facet disease without critical canal or foraminal narrowing. C7/T1: No canal or foraminal narrowing. Soft tissues: Paraspinal soft tissues are unremarkable. IMPRESSION: No signal abnormalities in the cervical cord. No critical canal or foraminal stenosis. Signed: JR Proctor Robert MDReport Verified Date/Time: 07/11/2021 15:20:27 Reading Location: [address] Neuro Reading Room POCT- GLUCOSE [id number] 11:56:52 Test Item Value Reference Range Interpretation Comments POC-GLUCOSE METER 181 mg/dL 70-110 H : TESTED A T [facility] [address] (BEAKER) (test code [facility] [address] [facility], = 1538) [facility] 77 384: Sack Lifter/Techni ganesh ID = [id number] for Christen Nunes BASIC METABOLIC [id number] 05:07:08 Test Item Value Reference Range Interpretation Comments SODIUM (BEAKER) 136 meq/L 135-148 (test code = 381) POTASSIUM (BEAKER) 3.9 meq/L 3.5-5.5 (test code = 379) CHLORIDE (BEAKER) 102 meq/L 98-106 (test code = 382) CO2 (BEAKER) (test 22 meq/L 20-31 code = 355) BLOOD UREA NITROGEN 28 mg/dL 10-26 H (BEAKER) (test code = 354) CREATININE (BEAKER) 2.92 mg/dL 0.50-1.20 H (test code = 358) GLUCOSE RANDOM 117 mg/dL 70-110 H (BEAKER) (test code = 652) CALCIUM (BEAKER) 8.7 mg/dL 8.5-10.5 (test code = 697) EGFR (BEAKER) (test 16 mL/min/1.73 ESTIMA DUY GFR IS code = 1092) sq m NOT ACCURATE CREATININE CLEARANCE IN PREDICTING GLOMERULAR FILTRATION RATE . ESTIMATED GFR I S NOT APPLICABLE FOR DIALYSIS PATIEN TS. Sack Lifter ID - [id number] (HEMOGRAM ONLY)2021-07-11 04:39:06 Test Item Value Reference Range Interpretation Comments WHITE BLOOD CELL COUNT (BEAKER) 10.5 K/ L 4.0-10.0 H (test code = 775) RED BLOOD CELL COUNT (BEAKER) 3.90 M/ L 4.00-5.00 L (test code = 761) HEMOGLOBIN (BEAKER) (test code = 10.9 GM/DL 12.0-15.5 L 410) HEMATOCRIT (BEAKER) (test code = 33.7 % 36.0-46.0 L 411) MEAN CORPUSCULAR VOLUME (BEAKER) 86.4 fL 82.0-99.0 (test code = 753) MEAN CORPUSCULAR HEMOGLOBIN 27.9 pg 27.0-33.0 (BEAKER) (test code = 751) MEAN CORPUSCULAR HEMOGLOBIN CONC 32.3 GM/DL 32.0-36.0 (BEAKER) (test code = 752) RED CELL DISTRIBUTION WIDTH 13.9 % 12.0-15.0 (BEAKER) (test code = 412) PLATELET COUNT (BEAKER) (test 214 K/CU MM 150-430 code = 756) MEAN PLATELET VOLUME (BEAKER) 10.5 fL 6.0-11.5 (test code = 754) NUCLEATED RED BLOOD CELLS 0 /100 WBC 0-0 (BEAKER) (test code = 413) POCT-GLUCOSE [id number] 23:55:53 Test Item Value Reference Range Interpretation Comments POC-GLUCOSE METER 147 mg/dL 70-110 H : TESTED A T [facility] [id number] ([facility]) (test code [facility], = 1538) BRITTANY [place] [address] 384: Sack Lifter/Techni ganesh ID = [id number] for Haris Ruvalcaba MR, BRAIN, WITHOUT [id number] 19:00:00Unlisted Reason for Exam - Click Yes and Enter Reason Below->No [facility] Geronimo : 1960 Sex: FFINALREPORT MR, BRAIN, WITHOUT CONTRAST INDICATION: Altered mental status TECHNIQUE:Multiplanar, multisequence MR imaging of the brain without intravenous contrast. COMPARISON: CT 07/09/2021 FINDINGS: Intracranial: Exam is degraded by motion. There are scattered foci of restricted diffusion within the right parietal and occipital lobes, and a punctate focus within the left brachium po ntis. Extensive abnormal FLAIR hyperintensity within the melodie, midbrain, bilateral brachium pontis, cerebellar hemispheres, right occipital lobe, and right greater than left anterior temporal cortex. Remote lacunar infarct in the left thalamus. Scattered foci of T2 prolongation within the periventricular and subcortical white matter are a nonspecific finding commonly attributed to chronic small vessel ischemic disease. No acute intracranial hemorrhage. No restricted diffusion to suggest acute infarct. No mass effect. No hydrocephalus. Visualized intracranial flow voids are of normal course and caliber. Sinuses: No evidence of sinusitis. Mastoids are clear. Orbits: Globes are intact. Calvarium \\T\\ scalp: Unremarkable. IMPRESSION:Extensive abnormal FLAIR hyperintensity within the brainstem, cerebellum, occipital lobes, and right greater than left anterior temporal lobes, could be consistent with PRES in the appropriate clinical setting. Scattered foci of restricted diffusion in the left brachium pontis and right cerebral hemisphere, favored to represent atypical manifestation of PRES rather thansuperimposed acute infarcts. Signed: Mi Justin Verified Date/Time: 07/10/2021 19:00:26 POCT-GLUCOSE [id number] 16:41:24 Test Item Value Reference Range Interpretation Comments POC-GLUCOSE METER 150 mg/dL 70-110 H : TESTED A T [facility] [address] (BEAKER) (test code [facility], = 1538) [place] [address] 384: Sack Lifter/Techni ganesh ID = [id number] for Claribel Condondipti POCT-GLUCOSE [id number] 11:58:07 Test Item Value Reference Range Interpretation Comments POC-GLUCOSE METER 148 mg/dL 70-110 H : TESTED A T [facility] [address] (BEAKER) (test code [facility], = 1538) [place] [address] 384: Sack Lifter/Techni ganesh ID = [id number] for Robert Condonrosa BASIC METABOLIC [id number] 04:09:29 Test Item Value Reference Range Interpretation Comments SODIUM (BEAKER) 138 meq/L 135-148 (test code = 381) POTASSIUM (BEAKER) 3.3 meq/L 3.5-5.5 L (test code = 379) CHLORIDE (BEAKER) 103 meq/L 98-106 (test code = 382) CO2 (BEAKER) (test 22 meq/L 20-31 code = 355) BLOOD UREA NITROGEN 35 mg/dL 10-26 H (BEAKER) (test code = 354) CREATININE (BEAKER) 3.09 mg/dL 0.50-1.20 H (test code = 358) GLUCOSE RANDOM 111 mg/dL 70-110 H (BEAKER) (test code = 652) CALCIUM (BEAKER) 9.6 mg/dL 8.5-10.5 (test code = 697) EGFR (BEAKER) (test 15 mL/min/1.73 ESTIMA DUY GFR IS code = 1092) sq m NOT ACCURATE CREATININE CLEARANCE IN PREDICTING GLOMERULAR FILTRATION RATE . ESTIMATED GFR I S NOT APPLICABLE FOR DIALYSIS PATIEN TS. Sack Lifter ID - [id number] FUNCTION [id number] 04:05:54 Test Item Value Reference Range Interpretation Comments TOTAL PROTEIN (BEAKER) (test code = 6.5 gm/dL 6.0-8.5 770) ALBUMIN (BEAKER) (test code = 1145) 3.8 g/dL 3.5-5.0 BILIRUBIN TOTAL (BEAKER) (test code 0.4 mg/dL 0.1-1.3 = 377) BILIRUBIN DIRECT (BEAKER) (test 0.1 mg/dL 0.0-0.5 code = 706) ALKALINE PHOSPHATASE (BEAKER) (test 87 U/L 30-115 code = 346) AST (SGOT) (BEAKER) (test code = 11 U/L 5-40 353) ALT (SGPT) (BEAKER) (test code = 8 U/L 6-50 347) Sack Lifter ID - [id number] 04:05:53 Test Item Value Reference Range Interpretation Comments MAGNESIUM (BEAKER) (test code = 2.1 mg/dL 1.5-3.0 627) Sack Lifter ID - [id number] 04:05:53 Test Item Value Reference Range Interpretation Comments PHOSPHORUS (BEAKER) (test code = 2.8 mg/dL 2.5-4.5 604) Sack Lifter ID - [id number] (HEMOGRAM ONLY)2021-07-10 03:30:00 Test Item Value Reference Range Interpretation Comments WHITE BLOOD CELL COUNT (BEAKER) 14.8 K/ L 4.0-10.0 H (test code = 775) RED BLOOD CELL COUNT (BEAKER) 4.33 M/ L 4.00-5.00 (test code = 761) HEMOGLOBIN (BEAKER) (test code = 12.1 GM/DL 12.0-15.5 410) HEMATOCRIT (BEAKER) (test code = 37.2 % 36.0-46.0 411) MEAN CORPUSCULAR VOLUME (BEAKER) 85.9 fL 82.0-99.0 (test code = 753) MEAN CORPUSCULAR HEMOGLOBIN 27.9 pg 27.0-33.0 (BEAKER) (test code = 751) MEAN CORPUSCULAR HEMOGLOBIN CONC 32.5 GM/DL 32.0-36.0 (BEAKER) (test code = 752) RED CELL DISTRIBUTION WIDTH 13.9 % 12.0-15.0 (BEAKER) (test code = 412) PLATELET COUNT (BEAKER) (test 234 K/CU MM 150-430 code = 756) MEAN PLATELET VOLUME (BEAKER) 10.1 fL 6.0-11.5 (test code = 754) NUCLEATED RED BLOOD CELLS 0 /100 WBC 0-0 (BEAKER) (test code = 413) CALCIUM, [id number] 03:27:21 Test Item Value Reference Range Interpretation Comments CALCIUM IONIZED (BEAKER) (test 1.14 mmol/L 1.12-1.27 code = 698) PH, BLOOD (BEAKER) (test code = 7.43 1810) POCT-GLUCOSE [id number] 23:27:32 Test Item Value Reference Range Interpretation Comments POC-GLUCOSE METER 121 mg/dL 70-110 H : TESTED A T [facility] [address] (BEAKER) (test code [facility], = 1538) [place] [address] 384: Sack Lifter/Techni ganesh ID = [id number] for Edna Pastrana POCT-GLUCOSE [id number] 16:50:49 Test Item Value Reference Range Interpretation Comments POC-GLUCOSE METER 102 mg/dL 70-110 : TESTED A T [facility] [address] (BEAKER) (test code [facility], = 1538) [place] [address] 384: Sack Lifter/Techni ganesh ID = [id number] for Ashley Condon U/S, RENAL WITH [id number] 12:39:00Reason for exam:->HYPERTENSIVE EMERGENCY, RENAL FAILURE [facility] : 1960 Sex: FFINALREPORT Renal ultrasound and Doppler Clinical History: Hypertension Discussion: Sonographic evaluation of the kidneys is performed. The right kidney measures 5.5 cm in length. The left kidney measures 9.6 cm in length. There is elevated renal cortical echogenicity. There is no focal renal mass, hydronephrosis, or shadowing renal calculus. No perinephric fluid collection is seen. The bladder is contracted with a Brennan catheter. The peak systolic velocities of the right and left main renal arteries are 80 and 85 cm/s. The peak systolic velocities of the right and left main renal veins are 16 and 15 cm/s. The resistive indices of the left renal arcuate arteries range from 0.78-0.96. Impression: 1. Diffuse atrophy of the right kidney. 2. Elevated renal cortical echogenicity most consistent with medical renal disease. 3. Nonspecific elevation of the left renal arcuate artery resistive indices. 4. The right renal arcuate arteries were not detectable. Signed: Racheal Ross MDReport Verified Date/Time: 07/09/2021 12:39:55 Reading Location: [facility] Radiology Reading Room POCT-GLUCOSE [id number] 11:40:41 Test Item Value Reference Range Interpretation Comments POC-GLUCOSE METER 136 mg/dL 70-110 H : TESTED A T [facility] [address] (BEAKER) (test code [facility], = 1538) [facility] 77 384: Sack Lifter/Techni ganesh ID = [id number] for Ashley Condon HEPATIC FUNCTION [id number] 10:39:20 Test Item Value Reference Range Interpretation Comments TOTAL PROTEIN (BEAKER) (test code = 7.7 gm/dL 6.0-8.5 770) ALBUMIN (BEAKER) (test code = 1145) 4.3 g/dL 3.5-5.0 BILIRUBIN TOTAL (BEAKER) (test code 0.3 mg/dL 0.1-1.3 = 377) BILIRUBIN DIRECT (BEAKER) (test 0.1 mg/dL 0.0-0.5 code = 706) ALKALINE PHOSPHATASE (BEAKER) (test 102 U/L 30-115 code = 346) AST (SGOT) (BEAKER) (test code = 9 U/L 5-40 353) ALT (SGPT) (BEAKER) (test code = 9 U/L 6-50 347) Sack Lifter ID - [id number], RANDOM [id number] 10:39:01 Test Item Value Reference Range Interpretation Comments SODIUM URINE (BEAKER) (test code = 37 meq/L 243) Reference Range: No NormalsOperator ID - [id number] NITROGEN, RANDOM URINE 2021-07-09 10:39:01 Test Item Value Reference Range Interpretation Comments UREA NITROGEN URINE (BEAKER) (test 370 mg/dL code = 538) Reference Range: No NormalsOperator ID - [id number], RANDOM URINE 2021-07-09 10:38:55 Test Item Value Reference Range Interpretation Comments CREATININE URINE (BEAKER) (test 56.3 mg/dL code = 375) Reference Range: No NormalsOperator ID - [id number] 10:29:00 Test Item Value Reference Range Interpretation Comments RBC UA (BEAKER) (test code = 519) < /HPF WBC UA (BEAKER) (test code = 520) 1 /HPF URINALYSIS WITH MICROSCOPIC IF [id number] 10:28:59 Test Item Value Reference Range Interpretation Comments COLOR (BEAKER) (test code = 470) Light Yellow CLARITY (BEAKER) (test code = Clear 469) SPECIFIC GRAVITY UA (BEAKER) 1.013 1.001-1.035 (test code = 468) PH UA (BEAKER) (test code = 467) 6.0 5.0-8.0 PROTEIN UA (BEAKER) (test code = >500 mg/dL Negative A 464) GLUCOSE UA (BEAKER) (test code = 50 mg/dL Negative A 365) KETONES UA (BEAKER) (test code = Trace Negative A 371) BILIRUBIN UA (BEAKER) (test code Negative Negative = 462) BLOOD UA (BEAKER) (test code = Negative Negative 461) NITRITE UA (BEAKER) (test code = Negative Negative 465) LEUKOCYTE ESTERASE UA (BEAKER) Negative Negative (test code = 466) UROBILINOGEN UA (BEAKER) (test < mg/dL 0.2-1.0 code = 463) SOURCE(BEAKER) (test code = 2795) Sack Lifter ID - [auto]CT, BRAIN, WITHOUT [id number] 07:44:00Unlisted Reason for Exam - Click Yes and Enter Reason Below->YesUnlisted Reason for Exam->concern for pres versus encephalitis [facility] ROSEMARIE : 1960 Sex: FFINALREPORT CT, BRAIN, WITHOUT CONTRAST INDICATION: Altered mental statusconcern forpres versus encephalitis TECHNIQUE: Noncontrast axial imaging was obtained from the vertex to the skull base. Axial images were reconstructed using a bone algorithm. DOSE REDUCTION: Dose modulation, iterative reconstruction, and/or weight-based adjustment of the mA/kV was utilized to reduce the radiation dose to as low as reasonably achievable. COMPARISON: None. FINDINGS: Cerebral parenchyma: Diffuseparenchymal volume loss. Appearance of the white matter suggests chronic microvascular disease.Midline structures: Normally positioned.Cerebellum and brainstem: Commensurate volume loss.Ventricles: Normal volume.Extra-axial spaces: Unremarkable. Calvarium and skull base: Intact.Paranasal sinuses and mastoid air cells: Visible chambers are clear.Orbital contents: Included portions unremarkable. Additional findings: None. IMPRESSION: Chronic involutional changes without acute intracranial abnormality.If there is persistent clinical concern for intracranial pathology, MR examination is recommended for further characterization. Signed: JR Proctor Robert MDReport Verified Date/Time: 07/09/2021 07:44:24 Reading Location: [address] Neuro Reading Room BASIC METABOLIC [id number] 03:50:42 Test Item Value Reference Range Interpretation Comments SODIUM (BEAKER) 138 meq/L 135-148 (test code = 381) POTASSIUM (BEAKER) 4.1 meq/L 3.5-5.5 (test code = 379) CHLORIDE (BEAKER) 99 meq/L 98-106 (test code = 382) CO2 (BEAKER) (test 20 meq/L 20-31 code = 355) BLOOD UREA NITROGEN 45 mg/dL 10-26 H (BEAKER) (test code = 354) CREATININE (BEAKER) 3.77 mg/dL 0.50-1.20 H (test code = 358) GLUCOSE RANDOM 169 mg/dL 70-110 H (BEAKER) (test code = 652) CALCIUM (BEAKER) 10.5 mg/dL 8.5-10.5 (test code = 697) EGFR (BEAKER) (test 12 mL/min/1.73 ESTIMA DUY GFR IS code = 1092) sq m NOT ACCURATE CREATININE CLEARANCE IN PREDICTING GLOMERULAR FILTRATION RATE . ESTIMATED GFR I S NOT APPLICABLE FOR DIALYSIS PATIEN TS. Sack Lifter ID - [id number] ACID, [id number] 03:45:51 Test Item Value Reference Range Interpretation Comments LACTATE BLOOD VENOUS 1.42 mmol/L 0.50-2.20 Specime n slightly (2) (BEAKER) (test hemolyzed code = 2872) Sack Lifter ID - [id number] (HEMOGRAM ONLY)2021-07-09 03:34:00 Test Item Value Reference Range Interpretation Comments WHITE BLOOD CELL COUNT (BEAKER) 15.9 K/ L 4.0-10.0 H (test code = 775) RED BLOOD CELL COUNT (BEAKER) 4.69 M/ L 4.00-5.00 (test code = 761) HEMOGLOBIN (BEAKER) (test code = 13.2 GM/DL 12.0-15.5 410) HEMATOCRIT (BEAKER) (test code = 40.0 % 36.0-46.0 411) MEAN CORPUSCULAR VOLUME (BEAKER) 85.3 fL 82.0-99.0 (test code = 753) MEAN CORPUSCULAR HEMOGLOBIN 28.1 pg 27.0-33.0 (BEAKER) (test code = 751) MEAN CORPUSCULAR HEMOGLOBIN CONC 33.0 GM/DL 32.0-36.0 (BEAKER) (test code = 752) RED CELL DISTRIBUTION WIDTH 14.3 % 12.0-15.0 (BEAKER) (test code = 412) PLATELET COUNT (BEAKER) (test 297 K/CU MM 150-430 code = 756) MEAN PLATELET VOLUME (BEAKER) 10.4 fL 6.0-11.5 (test code = 754) NUCLEATED RED BLOOD CELLS 0 /100 WBC 0-0 (BEAKER) (test code = 413) [id number] 00:49:00 Test Item Value Reference Range Interpretation Comments MAGNESIUM (BEAKER) (test code = 2.3 mg/dL 1.5-3.0 627) Sack Lifter ID - [id number] 00:45:04 Test Item Value Reference Range Interpretation Comments TROPONIN I (BEAKER) (test code = 0.18 ng/mL 0.00-0.15 H 397) Troponin I (TnI) levels must be interpreted in the context of the presenting symptoms and the clinical findings. Elevated TnI levels indicate myocardial damage, but are not specific for ischemic heart disease. Elevated TnI levels are seen in patients with other cardiac conditions (including myocarditis and congestive heart failure), and slight TnI elevations occur in patients with other conditions, including sepsis, renal failure, acidosis, acute neurological disease, and persistent tachyarrhythmia.Sack Lifter ID - [id number] 00:39:57 Test Item Value Reference Range Interpretation Comments D-DIMER QUANTITATIVE (BEAKER) 2.95 MG/L FEU <0.50 HH (test code = 671) Intended Use: The D-Dimer Assay can be used to aid in the diagnosis of Deep Vein Thrombosis (DVT) and Pulmonary Embolism Disease (PED).In patients with low pre- test probability, various studies concerning STA Liatest D-dimer test have reported that with a cutoff value of 0.50 MG/L FEU, the Negative Predictive Value (NPV) regarding the exclusion of thrombosis is within 95-100% range. PROTHROMBIN TIME/[id number] 00:33:59 Test Item Value Reference Range Interpretation Comments PROTIME (BEAKER) (test code = 13.5 seconds 11.8-14.4 759) INR (BEAKER) (test code = 370) 1.08 1.20-1.50 L RECOMMENDED COUMADIN/WARFARIN INR THERAPY RANGESSTANDARD DOSE: 2.0 - 3.0 Includes: PROPHYLAXIS for venous thrombosis, systemic embolization; TREATMENT for venous thrombosis and/or pulmonary embolus.HIGH RISK: Target INR is 2.5-3.5 for patients with mechanical heart valves.CBC W/PLT COUNT & AUTO [id number] 00:16:57 Test Item Value Reference Range Interpretation Comments WHITE BLOOD CELL COUNT (BEAKER) 15.1 K/ L 4.0-10.0 H (test code = 775) RED BLOOD CELL COUNT (BEAKER) 4.96 M/ L 4.00-5.00 (test code = 761) HEMOGLOBIN (BEAKER) (test code = 13.6 GM/DL 12.0-15.5 410) HEMATOCRIT (BEAKER) (test code = 42.4 % 36.0-46.0 411) MEAN CORPUSCULAR VOLUME (BEAKER) 85.5 fL 82.0-99.0 (test code = 753) MEAN CORPUSCULAR HEMOGLOBIN 27.4 pg 27.0-33.0 (BEAKER) (test code = 751) MEAN CORPUSCULAR HEMOGLOBIN CONC 32.1 GM/DL 32.0-36.0 (BEAKER) (test code = 752) RED CELL DISTRIBUTION WIDTH 13.9 % 12.0-15.0 (BEAKER) (test code = 412) PLATELET COUNT (BEAKER) (test 267 K/CU MM 150-430 code = 756) MEAN PLATELET VOLUME (BEAKER) 10.0 fL 6.0-11.5 (test code = 754) NUCLEATED RED BLOOD CELLS 0 /100 WBC 0-0 (BEAKER) (test code = 413) NEUTROPHILS RELATIVE PERCENT 88 % (BEAKER) (test code = 429) LYMPHOCYTES RELATIVE PERCENT 8 % (BEAKER) (test code = 430) MONOCYTES RELATIVE PERCENT 4 % (BEAKER) (test code = 431) EOSINOPHILS RELATIVE PERCENT 0 % (BEAKER) (test code = 432) BASOPHILS RELATIVE PERCENT 0 % (BEAKER) (test code = 437) NEUTROPHILS ABSOLUTE COUNT 13.18 K/ L 1.80-8.00 H (BEAKER) (test code = 670) LYMPHOCYTES ABSOLUTE COUNT 1.18 K/ L 1.48-4.50 L (BEAKER) (test code = 414) MONOCYTES ABSOLUTE COUNT (BEAKER) 0.61 K/ L 0.00-1.30 (test code = 415) EOSINOPHILS ABSOLUTE COUNT 0.00 K/ L 0.00-0.50 (BEAKER) (test code = 416) BASOPHILS ABSOLUTE COUNT (BEAKER) 0.03 K/ L 0.00-0.20 (test code = 417) IMMATURE GRANULOCYTES-RELATIVE 1 % 0-0 H PERCENT (BEAKER) (test code = 2801) TISSUE [id number] 14:12:00Surgical Pathology Report Case: [id number] Authorizing Provider: Brandyn Tellez, Collected: 03/08/2019 0932 Ordering Location: [facility] Received: 03/08/2019 1109 PERIOPERATIVE SERVICESPathologist: Aubrey Sargent MD Specimen: Aorta, Abdominal aorta AORTA, ABDOMINAL, ATHERECTOMY::CALCIFIC ATHEROSCLEROTIC PLAQUE Signing Pathologist Direct Phone Line: [phone] signed by Aubrey Sargent MD on 03/15/2019 at 2:12 [id number]; [id number] aortaReceived in saline labeled with the patient's name, accession number and "aorta" is a 3.8 x 2 x 1 cm aggregate of multiple, irregular, pink-red, pathak to yellow, vascular tissue fragments. The specimen is serially sectioned to reveals calcifications measuring up to 0.4 cm in thickness. Business Systems Administrator sections are submitted in A1 , following decalcification. CG/ewPOCT-GLUCOSE [id number] 11:51:00 Test Item Value Reference Range Interpretation Comments POC-GLUCOSE METER 138 mg/dL 70-110 H TESTED AT [facility] ([facility]) (test code = [facility] [place] 1538) [id number] POCT-GLUCOSE [id number] 07:25:00 Test Item Value Reference Range Interpretation Comments POC-GLUCOSE METER 115 mg/dL 70-110 H TESTED AT [place] [address] ([facility]) (test code = [facility] 1538) [address] BASIC METABOLIC [id number] 05:16:00 Test Item Value Reference Range Interpretation Comments SODIUM (BEAKER) 135 meq/L 136-145 L (test code = 381) POTASSIUM (BEAKER) 3.5 meq/L 3.5-5.1 (test code = 379) CHLORIDE (BEAKER) 102 meq/L 98-107 (test code = 382) CO2 (BEAKER) (test 24 meq/L 22-29 code = 355) BLOOD UREA NITROGEN 28 mg/dL 7-21 H (BEAKER) (test code = 354) CREATININE (BEAKER) 1.54 mg/dL 0.57-1.25 H (test code = 358) GLUCOSE RANDOM 111 mg/dL 70-105 H (BEAKER) (test code = 652) CALCIUM (BEAKER) 9.8 mg/dL 8.4-10.2 (test code = 697) EGFR (BEAKER) (test 35 mL/min/1.73 ESTIMA DUY GFR IS code = 1092) sq m NOT ACCURATE CREATININE CLEARANCE IN PREDICTING GLOMERULAR FILTRATION RATE . ESTIMATED GFR I S NOT APPLICABLE FOR DIALYSIS PATIEN TS. CBC (HEMOGRAM ONLY)2019-03-11 04:49:00 Test Item Value Reference Range Interpretation Comments WHITE BLOOD CELL COUNT (BEAKER) 14.4 K/ L 3.5-10.5 H (test code = 775) RED BLOOD CELL COUNT (BEAKER) 3.28 M/ L 3.93-5.22 L (test code = 761) HEMOGLOBIN (BEAKER) (test code = 9.5 GM/DL 11.2-15.7 L 410) HEMATOCRIT (BEAKER) (test code = 29.0 % 34.1-44.9 L 411) MEAN CORPUSCULAR VOLUME (BEAKER) 88.4 fL 79.4-94.8 (test code = 753) MEAN CORPUSCULAR HEMOGLOBIN 29.0 pg 25.6-32.2 (BEAKER) (test code = 751) MEAN CORPUSCULAR HEMOGLOBIN CONC 32.8 GM/DL 32.2-35.5 (BEAKER) (test code = 752) RED CELL DISTRIBUTION WIDTH 13.1 % 11.7-14.4 (AKER) (test code = 412) PLATELET COUNT ([facility]) (test 201 K/CU MM 150-450 code = 756) MEAN PLATELET VOLUME (AKER) 10.0 fL 9.4-12.3 (test code = 754) NUCLEATED RED BLOOD CELLS 0 /100 WBC 0-0 ([facility]) (test code = 413) POCT-GLUCOSE [id number] 21:37:00 Test Item Value Reference Range Interpretation Comments POC-GLUCOSE METER 105 mg/dL 70-110 TESTED AT [place] [address] ([facility]) (test code = [place] 1538) [id number] POCT-GLUCOSE [id number] 16:44:00 Test Item Value Reference Range Interpretation Comments POC-GLUCOSE METER 125 mg/dL 70-110 H TESTED AT [place] [address] ([facility]) (test code = [place] 1538) [id number] POCT-GLUCOSE [id number] 12:13:00 Test Item Value Reference Range Interpretation Comments POC-GLUCOSE METER 127 mg/dL 70-110 H TESTED AT [place] [address] ([facility]) (test code = [place] 1538) [address] POCT-GLUCOSE [id number] 08:04:00 Test Item Value Reference Range Interpretation Comments POC-GLUCOSE METER 138 mg/dL 70-110 H TESTED AT [place] [address] ([facility]) (test code = [place] 1538) [id number] CBC W/PLT COUNT & AUTO [id number] 07:12:00 Test Item Value Reference Range Interpretation Comments WHITE BLOOD CELL COUNT (BEAKER) 15.8 K/ L 3.5-10.5 H (test code = 775) RED BLOOD CELL COUNT (BEAKER) 3.15 M/ L 3.93-5.22 L (test code = 761) HEMOGLOBIN (BEAKER) (test code = 9.1 GM/DL 11.2-15.7 L 410) HEMATOCRIT (BEAKER) (test code = 29.2 % 34.1-44.9 L 411) MEAN CORPUSCULAR VOLUME (BEAKER) 92.7 fL 79.4-94.8 (test code = 753) MEAN CORPUSCULAR HEMOGLOBIN 28.9 pg 25.6-32.2 (BEAKER) (test code = 751) MEAN CORPUSCULAR HEMOGLOBIN CONC 31.2 GM/DL 32.2-35.5 L (BEAKER) (test code = 752) RED CELL DISTRIBUTION WIDTH 13.8 % 11.7-14.4 (BEAKER) (test code = 412) PLATELET COUNT (BEAKER) (test 194 K/CU MM 150-450 code = 756) MEAN PLATELET VOLUME (BEAKER) 10.1 fL 9.4-12.3 (test code = 754) NUCLEATED RED BLOOD CELLS 0 /100 WBC 0-0 (BEAKER) (test code = 413) NEUTROPHILS RELATIVE PERCENT 78 % (BEAKER) (test code = 429) LYMPHOCYTES RELATIVE PERCENT 14 % (BEAKER) (test code = 430) MONOCYTES RELATIVE PERCENT 7 % (BEAKER) (test code = 431) EOSINOPHILS RELATIVE PERCENT 0 % (BEAKER) (test code = 432) BASOPHILS RELATIVE PERCENT 0 % (BEAKER) (test code = 437) NEUTROPHILS ABSOLUTE COUNT 12.36 K/ L 1.56-6.13 H (BEAKER) (test code = 670) LYMPHOCYTES ABSOLUTE COUNT 2.26 K/ L 1.18-3.74 (BEAKER) (test code = 414) MONOCYTES ABSOLUTE COUNT (BEAKER) 1.05 K/ L 0.24-0.36 H (test code = 415) EOSINOPHILS ABSOLUTE COUNT 0.04 K/ L 0.04-0.36 (BEAKER) (test code = 416) BASOPHILS ABSOLUTE COUNT (BEAKER) 0.05 K/ L 0.01-0.08 (test code = 417) IMMATURE GRANULOCYTES-RELATIVE 0 % 0-1 PERCENT (BEAKER) (test code = 2801) BASIC METABOLIC [id number] 06:25:00 Test Item Value Reference Range Interpretation Comments SODIUM (BEAKER) 138 meq/L 136-145 (test code = 381) POTASSIUM (BEAKER) 3.8 meq/L 3.5-5.1 (test code = 379) CHLORIDE (BEAKER) 107 meq/L 98-107 (test code = 382) CO2 (BEAKER) (test 24 meq/L 22-29 code = 355) BLOOD UREA NITROGEN 29 mg/dL 7-21 H (BEAKER) (test code = 354) CREATININE (BEAKER) 1.45 mg/dL 0.57-1.25 H (test code = 358) GLUCOSE RANDOM 132 mg/dL 70-105 H (BEAKER) (test code = 652) CALCIUM (BEAKER) 9.3 mg/dL 8.4-10.2 (test code = 697) EGFR (BEAKER) (test 37 mL/min/1.73 ESTIMA DUY GFR IS code = 1092) sq m NOT ACCURATE CREATININE CLEARANCE IN PREDICTING GLOMERULAR FILTRATION RATE . ESTIMATED GFR I S NOT APPLICABLE FOR DIALYSIS PATIEN TS. [id number] 06:24:00 Test Item Value Reference Range Interpretation Comments MAGNESIUM (BEAKER) (test code = 1.7 mg/dL 1.6-2.6 627) POCT-GLUCOSE [id number] 14:14:00 Test Item Value Reference Range Interpretation Comments POC-GLUCOSE METER 168 mg/dL 70-110 H TESTED AT [facility] 6720 (BEAKER) (test code = GERRILOCO Ronak [facility] 1538) [address] RAD, CHEST, 1 VIEW, NON [id number] 08:00:00Reason for exam:->s/p aorto- bifemShould this be performed at the bedside?->YesFINAL REPORT CLINICAL HISTORY: s/p aorto-bifem TECHNIQUE: 1 view of the chest. C OMPARISON: 03/08/2019 IMPRESSION: The supporting lines and tubes are unchanged. There are no focal infiltrates or effusions. The cardiomediastinal silhouette is within normal limits for size. Signed: Jason Saha MDReport Verified Date/Time: 03/09/2019 08:00:01 Reading Location: [facility] Reading Room IUM, [id number] 03:52:00 Test Item Value Reference Range Interpretation Comments CALCIUM IONIZED (BEAKER) (test 1.20 mmol/L 1.12-1.27 code = 698) PH, BLOOD (BEAKER) (test code = 7.38 1810) [id number] 03:27:00 Test Item Value Reference Range Interpretation Comments PHOSPHORUS (BEAKER) (test code = 4.1 mg/dL 2.3-4.7 604) [id number] 03:27:00 Test Item Value Reference Range Interpretation Comments MAGNESIUM (BEAKER) (test code = 2.2 mg/dL 1.6-2.6 627) BASIC METABOLIC [id number] 03:27:00 Test Item Value Reference Range Interpretation Comments SODIUM (BEAKER) 143 meq/L 136-145 (test code = 381) POTASSIUM (BEAKER) 4.5 meq/L 3.5-5.1 (test code = 379) CHLORIDE (BEAKER) 112 meq/L 98-107 H (test code = 382) CO2 (BEAKER) (test 21 meq/L 22-29 L code = 355) BLOOD UREA NITROGEN 31 mg/dL 7-21 H (BEAKER) (test code = 354) CREATININE (BEAKER) 1.80 mg/dL 0.57-1.25 H (test code = 358) GLUCOSE RANDOM 187 mg/dL 70-105 H (BEAKER) (test code = 652) CALCIUM (BEAKER) 9.4 mg/dL 8.4-10.2 (test code = 697) EGFR (BEAKER) (test 29 mL/min/1.73 ESTIMA DUY GFR IS code = 1092) sq m NOT ACCURATE CREATININE CLEARANCE IN PREDICTING GLOMERULAR FILTRATION RATE . ESTIMATED GFR I S NOT APPLICABLE FOR DIALYSIS PATIEN TS. CBC (HEMOGRAM ONLY)2019-03-09 03:08:00 Test Item Value Reference Range Interpretation Comments WHITE BLOOD CELL COUNT (BEAKER) 20.2 K/ L 3.5-10.5 H (test code = 775) RED BLOOD CELL COUNT (BEAKER) 3.84 M/ L 3.93-5.22 L (test code = 761) HEMOGLOBIN (BEAKER) (test code = 11.2 GM/DL 11.2-15.7 410) HEMATOCRIT (BEAKER) (test code = 34.9 % 34.1-44.9 411) MEAN CORPUSCULAR VOLUME (BEAKER) 90.9 fL 79.4-94.8 (test code = 753) MEAN CORPUSCULAR HEMOGLOBIN 29.2 pg 25.6-32.2 (BEAKER) (test code = 751) MEAN CORPUSCULAR HEMOGLOBIN CONC 32.1 GM/DL 32.2-35.5 L (BEAKER) (test code = 752) RED CELL DISTRIBUTION WIDTH 13.8 % 11.7-14.4 (BEAKER) (test code = 412) PLATELET COUNT (BEAKER) (test 260 K/CU MM 150-450 code = 756) MEAN PLATELET VOLUME (BEAKER) 9.7 fL 9.4-12.3 (test code = 754) NUCLEATED RED BLOOD CELLS 0 /100 WBC 0-0 (BEAKER) (test code = 413) POCT-GLUCOSE [id number] 00:46:00 Test Item Value Reference Range Interpretation Comments POC-GLUCOSE METER 197 mg/dL 70-110 H TESTED AT [place] [address] ([facility]) (test code = ERIC [place] 1538) [address] POCT-GLUCOSE [id number] 00:32:00 Test Item Value Reference Range Interpretation Comments POC-GLUCOSE METER 194 mg/dL 70-110 H TESTED AT [place] [address] ([facility]) (test code = [place] 1538) [address] CBC W/PLT COUNT & AUTO [id number] 14:11:00 Test Item Value Reference Range Interpretation Comments WHITE BLOOD CELL COUNT (BEAKER) 28.7 K/ L 3.5-10.5 H (test code = 775) RED BLOOD CELL COUNT (BEAKER) 4.16 M/ L 3.93-5.22 (test code = 761) HEMOGLOBIN (BEAKER) (test code = 12.1 GM/DL 11.2-15.7 410) HEMATOCRIT (BEAKER) (test code = 37.7 % 34.1-44.9 411) MEAN CORPUSCULAR VOLUME (BEAKER) 90.6 fL 79.4-94.8 (test code = 753) MEAN CORPUSCULAR HEMOGLOBIN 29.1 pg 25.6-32.2 (BEAKER) (test code = 751) MEAN CORPUSCULAR HEMOGLOBIN CONC 32.1 GM/DL 32.2-35.5 L (BEAKER) (test code = 752) RED CELL DISTRIBUTION WIDTH 13.6 % 11.7-14.4 (BEAKER) (test code = 412) PLATELET COUNT (BEAKER) (test 305 K/CU MM 150-450 code = 756) MEAN PLATELET VOLUME (BEAKER) 9.6 fL 9.4-12.3 (test code = 754) NUCLEATED RED BLOOD CELLS 0 /100 WBC 0-0 (BEAKER) (test code = 413) (CELLAVISION MANUAL DIFF)2019-03-08 14:11:00 Test Item Value Reference Range Interpretation Comments NEUTROPHILS - REL 73 % (CELLAVISION)(BEAKER) (test code = 2816) LYMPHOCYTES - REL 9 % (CELLAVISION)(BEAKER) (test code = 2817) MONOCYTES - REL 5 % (CELLAVISION)(BEAKER) (test code = 2818) EOSINOPHILS - REL 2 % (CELLAVISION)(BEAKER) (test code = 2819) BANDS - REL (CELLAVISION)(BEAKER) 9 % 0-10 (test code = 2826) ATYPICAL LYMPHOCYTES - REL 2 % 0-0 H (CELLAVISION)(BEAKER) (test code = 2829) NEUTROPHILS - ABS 20.95 K/ul 1.56-6.13 H (CELLAVISION)(BEAKER) (test code = 2830) LYMPHOCYTES - ABS 2.58 K/ul 1.18-3.74 (CELLAVISION)(BEAKER) (test code = 2831) MONOCYTES - ABS 1.44 K/uL 0.24-0.36 H (CELLAVISION)(BEAKER) (test code = 2832) EOSINOPHILS - ABS 0.57 K/uL 0.04-0.36 H (CELLAVISION)(BEAKER) (test code = 2834) BANDS - ABS (CELLAVISION)(BEAKER) 2.58 K/uL 0.00-0.80 H (test code = 2840) ATYPICAL LYMPHOCYTES - ABS 0.57 K/uL 0.00-0.00 H (CELLAVISION)(BEAKER) (test code = 2858) TOTAL COUNTED (BEAKER) (test code 100 = 1351) RBC MORPHOLOGY (BEAKER) (test code Normal = 762) WBC MORPHOLOGY (BEAKER) (test code Normal = 487) PLT MORPHOLOGY (BEAKER) (test code Normal = 486) ARTIFACT (CELLAVISION)(BEAKER) Present (test code = 3432) PLATELET CONCENTRATION Adequate (CELLAVISION)(BEAKER) (test code = 3438) Received comment: User comments: Slide comments:RAD, CHEST, 1 VIEW, NON DEPT 2019-03-08 12:08:00For chest painReason for exam:->s/p aortobifem. eval NG positionShould this be performed at the bedside?->YesFINAL REPORT CLINICAL HISTORY: s/p aortobifem. eval NG position TECHNIQUE: 1 view of the chest. COMPARISON: 02/24/2019 IMPRESSION: There is a right jugular line just above the cavoatrial junction. There is a nasogastric tube below the lower edge of the film. There is mild pulmonaryvascular congestion with bilateral lung opacity. There is no significant pleural fluid. The cardiomediastinal silhouette is magnified by technique. Signed: Jason Saha MDReport Verified Date/Time: 03/08/2019 12:08:17 Reading Location: [facility] Radiology Reading Room [id number] 12:04:00 Test Item Value Reference Range Interpretation Comments PHOSPHORUS (BEAKER) (test code = 3.9 mg/dL 2.3-4.7 604) [id number] 12:04:00 Test Item Value Reference Range Interpretation Comments MAGNESIUM (BEAKER) (test code = 1.7 mg/dL 1.6-2.6 627) BASIC METABOLIC [id number] 12:04:00 Test Item Value Reference Range Interpretation Comments SODIUM (BEAKER) 138 meq/L 136-145 (test code = 381) POTASSIUM (BEAKER) 4.5 meq/L 3.5-5.1 (test code = 379) CHLORIDE (BEAKER) 108 meq/L 98-107 H (test code = 382) CO2 (BEAKER) (test 23 meq/L 22-29 code = 355) BLOOD UREA NITROGEN 34 mg/dL 7-21 H (BEAKER) (test code = 354) CREATININE (BEAKER) 1.77 mg/dL 0.57-1.25 H (test code = 358) GLUCOSE RANDOM 244 mg/dL 70-105 H (BEAKER) (test code = 652) CALCIUM (BEAKER) 9.4 mg/dL 8.4-10.2 (test code = 697) EGFR (BEAKER) (test 30 mL/min/1.73 ESTIMA DUY GFR IS code = 1092) sq m NOT ACCURATE CREATININE CLEARANCE IN PREDICTING GLOMERULAR FILTRATION RATE . ESTIMATED GFR I S NOT APPLICABLE FOR DIALYSIS PATIEN TS. LACTIC ACID, [id number] 11:45:00 Test Item Value Reference Range Interpretation Comments LACTATE BLOOD ARTERIAL (2) 1.8 mmol/L 0.5-2.2 (BEAKER) (test code = 2874) [id number] 11:43:00 Test Item Value Reference Range Interpretation Comments PARTIAL THROMBOPLASTIN TIME 29.3 seconds 22.5-36.0 (BEAKER) (test code = 760) PROTHROMBIN [id number] 11:42:00 Test Item Value Reference Range Interpretation Comments PROTIME (BEAKER) (test code = 14.1 seconds 11.9-14.2 759) INR (BEAKER) (test code = 370) 1.2 <=5.9 Effective 02/09/2019: PT Reference Range ChangeNew: 11.9-14.2 Previous: 11.7- 14.7RECOMMENDED COUMADIN/WARFARIN INR THERAPY RANGESSTANDARD DOSE: 2.0-3.0 Includes: PROPHYLAXIS for venous thrombosis, systemic embolization; TREATMENT for venous thrombosis and/or pulmonary embolus.HIGH RISK: Target INR is 2.5-3.5 for patients wiht mechanical heart valves.BLOOD GAS, [id number] 11:22:00 Test Item Value Reference Range Interpretation Comments PH ARTERIAL (BEAKER) (test code = 7.31 7.35-7.45 L 383) PCO2 ARTERIAL (BEAKER) (test code 46 mmHg 35-45 H = 384) PO2 ARTERIAL (BEAKER) (test code 93 mmHg 80-90 H = 385) O2 SATURATION ARTERIAL (BEAKER) 96.8 % 96.0-97.0 (test code = 386) HCO3 ARTERIAL (BEAKER) (test code 23 mmol/L 21-29 = 388) BASE EXCESS ARTERIAL (BEAKER) -3.8 mmol/L -2.0-3.0 L (test code = 387) PATIENT TEMPERATURE (BEAKER) 36.1 C (test code = 1818) FIO2 (BEAKER) (test code = 1819) 32.0 % [id number] 10:09:00 Test Item Value Reference Range Interpretation Comments ACTIVATED CLOTTING TIME 109 sec TEST ED AT [place] [address] [facility] (test code = ERIC Sim[place] [address]) [id number] 10:09:00 Test Item Value Reference Range Interpretation Comments ACTIVATED CLOTTING TIME 186 sec TEST ED AT [place] [address] ([facility]) (test code = [place] [address]) [address] BLOOD GAS, [id number] 09:25:00 Test Item Value Reference Range Interpretation Comments PH ARTERIAL (BEAKER) (test code = 7.48 7.35-7.45 H 383) PCO2 ARTERIAL (BEAKER) (test code 38 mmHg 35-45 = 384) PO2 ARTERIAL (BEAKER) (test code = 164 mmHg 80-90 H 385) O2 SATURATION ARTERIAL (BEAKER) 99.2 % 96.0-97.0 H (test code = 386) HCO3 ARTERIAL (BEAKER) (test code 28 mmol/L 21-29 = 388) BASE EXCESS ARTERIAL (BEAKER) 3.1 mmol/L -2.0-3.0 H (test code = 387) PATIENT TEMPERATURE (BEAKER) (test 35.0 C code = 1818) FIO2 (BEAKER) (test code = 1819) 60.0 % GLUCOSE-STAT [id number] 09:25:00 Test Item Value Reference Range Interpretation Comments GLUCOSE RANDOM (BEAKER) (test code 134 mg/dL 70-110 H = 652) HGB/HCT (H&H) - STAT [id number] 09:25:00 Test Item Value Reference Range Interpretation Comments HEMOGLOBIN (BEAKER) (test code = 9.9 g/dL 12.0-15.0 L 410) HEMATOCRIT (BEAKER) (test code = 29.0 % 36.0-45.0 L 411) CALCIUM, [id number] 09:25:00 Test Item Value Reference Range Interpretation Comments CALCIUM IONIZED (BEAKER) (test 1.43 mmol/L 1.12-1.27 H code = 698) PH, BLOOD (BEAKER) (test code = 7.45 1810) SODIUM NA-STAT [id number] 09:24:00 Test Item Value Reference Range Interpretation Comments SODIUM (BEAKER) (test code = 381) 137 meq/L 135-148 POTASSIUM-STAT [id number] 09:24:00 Test Item Value Reference Range Interpretation Comments POTASSIUM (BEAKER) (test code = 4.0 meq/L 3.6-5.5 379) CALCIUM, [id number] 08:56:00 Test Item Value Reference Range Interpretation Comments CALCIUM IONIZED (BEAKER) (test 1.11 mmol/L 1.12-1.27 L code = 698) PH, BLOOD (BEAKER) (test code = 7.29 1810) BLOOD GAS, [id number] 08:56:00 Test Item Value Reference Range Interpretation Comments PH ARTERIAL (BEAKER) (test code = 7.31 7.35-7.45 L 383) PCO2 ARTERIAL (BEAKER) (test code 39 mmHg 35-45 = 384) PO2 ARTERIAL (BEAKER) (test code 268 mmHg 80-90 H = 385) O2 SATURATION ARTERIAL (BEAKER) 99.6 % 96.0-97.0 H (test code = 386) HCO3 ARTERIAL (BEAKER) (test code 20 mmol/L 21-29 L = 388) BASE EXCESS ARTERIAL (BEAKER) -6.7 mmol/L -2.0-3.0 L (test code = 387) PATIENT TEMPERATURE (BEAKER) 35.5 C (test code = 1818) FIO2 (BEAKER) (test code = 1819) 100.0 % GLUCOSE-STAT [id number] 08:56:00 Test Item Value Reference Range Interpretation Comments GLUCOSE RANDOM (BEAKER) (test code 129 mg/dL 70-110 H = 652) HGB/HCT (H&H) - STAT [id number] 08:56:00 Test Item Value Reference Range Interpretation Comments HEMOGLOBIN (BEAKER) (test code = 11.8 g/dL 12.0-15.0 L 410) HEMATOCRIT (BEAKER) (test code = 35.0 % 36.0-45.0 L 411) SODIUM NA-STAT [id number] 08:55:00 Test Item Value Reference Range Interpretation Comments SODIUM (BEAKER) (test code = 381) 135 meq/L 135-148 POTASSIUM-STAT [id number] 08:55:00 Test Item Value Reference Range Interpretation Comments POTASSIUM (BEAKER) (test code = 4.1 meq/L 3.6-5.5 379) POCT-GLUCOSE [id number] 06:26:00 Test Item Value Reference Range Interpretation Comments POC-GLUCOSE METER 114 mg/dL 70-110 H TESTED AT [facility] ([place]) (test code = [place] 15[address]) [address] RAD, CHEST, 2 [id number] 13:47:00Reason for exam:->Preop screen Is the patient ?->NoFINAL REPORT Chest, PA and lateral. History: Preoperative. Comparison: None available. Discussion: The cardiomediastinal silhouette and pulmonary vasculature are within normal limits. The lungs are clear without evidence of consolidation or effusion. There are no acute osseous abnormalities. The soft tissues are unremarkable. IMPRESSION: No acute cardiopulmonary abnormality. Signed: Dennise Dobson [facility] Verified Date/Time: 02/24/2019 13:47:55 Reading Location: [facility] Mammo Reading Room GLOBIN [id number] 13:35:00 Test Item Value Reference Range Interpretation Comments HEMOGLOBIN A1C (BEAKER) (test code = 6.4 % 4.3-6.1 H 368) LIPID [id number] 12:47:00 Test Item Value Reference Range Interpretation Comments TRIGLYCERIDES (BEAKER) (test code = 275 mg/dL 540) CHOLESTEROL (BEAKER) (test code = 206 mg/dL 631) HDL CHOLESTEROL (BEAKER) (test code 36 mg/dL = 976) LDL CHOLESTEROL CALCULATED (BEAKER) 115 mg/dL (test code = 633) Triglyceride Reference Range: Low Risk <150 Borderline 150-199 High Risk 200- 499 Very High Risk >=500Cholesterol Reference Range: Low Risk <200 Borderline 200-239 High Risk >240HDL Cholesterol Reference Range: Low Risk >=60 High Risk <40LDL Cholesterol Reference Range: Optimal <100 Near Optimal 100-129 Borderline 130-159 High 160-189 Very High >=190COMPREHENSIVE METABOLIC [id number] 12:47:00 Test Item Value Reference Range Interpretation Comments TOTAL PROTEIN 7.2 gm/dL 6.0-8.3 (BEAKER) (test code = 770) ALBUMIN (BEAKER) 4.3 g/dL 3.5-5.0 (test code = 1145) ALKALINE PHOSPHATASE 124 U/L 40-150 (BEAKER) (test code = 346) BILIRUBIN TOTAL 0.3 mg/dL 0.2-1.2 (BEAKER) (test code = 377) SODIUM (BEAKER) (test 140 meq/L 136-145 code = 381) POTASSIUM (BEAKER) 4.3 meq/L 3.5-5.1 (test code = 379) CHLORIDE (BEAKER) 103 meq/L 98-107 (test code = 382) CO2 (BEAKER) (test 26 meq/L 22-29 code = 355) BLOOD UREA NITROGEN 22 mg/dL 7-21 H (BEAKER) (test code = 354) CREATININE (BEAKER) 1.43 mg/dL 0.57-1.25 H (test code = 358) GLUCOSE RANDOM 108 mg/dL 70-105 H (BEAKER) (test code = 652) CALCIUM (BEAKER) 10.2 mg/dL 8.4-10.2 (test code = 697) AST (SGOT) (BEAKER) 11 U/L 5-34 (test code = 353) ALT (SGPT) (BEAKER) 12 U/L 6-55 (test code = 347) EGFR (BEAKER) (test 38 mL/min/1.73 ESTIMA DUY GFR IS code = 1092) sq m NOT ACCURATE CREATININE CLEARANCE IN PREDICTING GLOMERULAR FILTRATION RATE . ESTIMATED GFR I S NOT APPLICABLE FOR DIALYSIS PATIEN TS. PROTHROMBIN [id number] 12:39:00 Test Item Value Reference Range Interpretation Comments PROTIME (BEAKER) (test code = 12.4 seconds 11.9-14.2 759) INR (BEAKER) (test code = 370) 1.0 <=5.9 Effective 02/09/2019: PT Reference Range ChangeNew: 11.9-14.2 Previous: 11.7- 14.7RECOMMENDED COUMADIN/WARFARIN INR THERAPY RANGESSTANDARD DOSE: 2.0-3.0 Includes: PROPHYLAXIS for venous thrombosis, systemic embolization; TREATMENT for venous thrombosis and/or pulmonary embolus.HIGH RISK: Target INR is 2.5-3.5 for patients wiht mechanical heart valves.CBC W/PLT COUNT & AUTO [id number] 12:31:00 Test Item Value Reference Range Interpretation Comments WHITE BLOOD CELL COUNT (BEAKER) 11.1 K/ L 3.5-10.5 H (test code = 775) RED BLOOD CELL COUNT (BEAKER) 4.31 M/ L 3.93-5.22 (test code = 761) HEMOGLOBIN (BEAKER) (test code = 12.4 GM/DL 11.2-15.7 410) HEMATOCRIT (BEAKER) (test code = 39.0 % 34.1-44.9 411) MEAN CORPUSCULAR VOLUME (BEAKER) 90.5 fL 79.4-94.8 (test code = 753) MEAN CORPUSCULAR HEMOGLOBIN 28.8 pg 25.6-32.2 (BEAKER) (test code = 751) MEAN CORPUSCULAR HEMOGLOBIN CONC 31.8 GM/DL 32.2-35.5 L (BEAKER) (test code = 752) RED CELL DISTRIBUTION WIDTH 14.0 % 11.7-14.4 (BEAKER) (test code = 412) PLATELET COUNT (BEAKER) (test 276 K/CU MM 150-450 code = 756) MEAN PLATELET VOLUME (BEAKER) 9.4 fL 9.4-12.3 (test code = 754) NUCLEATED RED BLOOD CELLS 0 /100 WBC 0-0 (BEAKER) (test code = 413) NEUTROPHILS RELATIVE PERCENT 65 % (BEAKER) (test code = 429) LYMPHOCYTES RELATIVE PERCENT 27 % (BEAKER) (test code = 430) MONOCYTES RELATIVE PERCENT 5 % (BEAKER) (test code = 431) EOSINOPHILS RELATIVE PERCENT 2 % (BEAKER) (test code = 432) BASOPHILS RELATIVE PERCENT 0 % (BEAKER) (test code = 437) NEUTROPHILS ABSOLUTE COUNT 7.22 K/ L 1.56-6.13 H (BEAKER) (test code = 670) LYMPHOCYTES ABSOLUTE COUNT 3.00 K/ L 1.18-3.74 (BEAKER) (test code = 414) MONOCYTES ABSOLUTE COUNT (BEAKER) 0.58 K/ L 0.24-0.36 H (test code = 415) EOSINOPHILS ABSOLUTE COUNT 0.22 K/ L 0.04-0.36 (BEAKER) (test code = 416) BASOPHILS ABSOLUTE COUNT (BEAKER) 0.05 K/ L 0.01-0.08 (test code = 417) IMMATURE GRANULOCYTES-RELATIVE 0 % 0-1 PERCENT (BEAKER) (test code = 8531)
[2023-02-03] MEDS ORDERED: THIAMINE 200 MG/2 ML INJ ONE (12:34)
[2023-02-03] MEDS ORDERED: NA CHLORIDE 0.9% 1,000 ML ONE (12:34)
[2023-02-03] MEDS ORDERED: CEFTRIAXONE 1000 MG/VIAL ONE (12:34)
[2023-02-03] MEDS ORDERED: FOLIC ACID 5 MG/ML VIAL ONE (12:35)
[2023-02-03] MEDS ORDERED: NA CHLORIDE 0.9% 0 ML ONE (12:35)
--- NOTE | 2023-02-03 12:40 | RAD REPORT ---
EXAM DESCRIPTION: CT - Head Brain Wo Cont - 02/03/2023 12:28 pm CLINICAL HISTORY: Dizziness;Confused Headache, drowsiness COMPARISON: Head Brain Wo Cont dated 07/08/2021 TECHNIQUE: All CT scans are performed using dose optimization technique as appropriate and may inclu de automated exposure control or mA/KV adjustment according to patient size. FINDINGS: No intracranial hemorrhage, hydrocephalus or extra-axial fluid collection.Moderate general ized brain atrophy is present with moderate periventricular and deep white matter chronic microvascul ar ischemic changes.There is an area of diminished density seen in the right occipital pole which has the appearance of subacute CVA. The paranasal sinuses and mastoids are clear. The calvarium is intact. IMPRESSION: Evidence of a 2-3 cm area of intermediate diminished density likely representing subacut e CVA. No hemorrhage is seen. Recommend MRI of the brain for further stroke workup evaluation.
[2023-02-03 12:46] LABS: Absolute Lymphocytes (CBC) 2.4 K/uL (0.7-4.9); Lymphocytes % 20.8 % (15.3-44.8); MCV 92.1 fL (80-100); MPV 8.5 fL (7.6-11.3)
[2023-02-03 12:51] LABS: Protime INR 1.02
[2023-02-03 13:08] LABS: Albumin 3.9 g/dL (3.4-5.0); Bilirubin Direct 0.2 mg/dL (0-0.2); Bilirubin Indirect, Calculated 0.3 mg/dL (0.2-0.8); Bilirubin Total 0.5 mg/dL (0.2-1.0); Magnesium 1.9 mg/dL (1.6-2.4); Potassium 3.1 mEq/L (3.5-5.1); Protein, Total 7.3 g/dL (6.4-8.2); Troponin High Sensitivity 17.7 pg/mL (<58.9)
[2023-02-03 13:16] LABS: SARS-CoV-2 Antigen Rapid Res Negative (Negative)
--- NOTE | 2023-02-03 13:27 | EDPHYS ---
Physician Documentation [facility] Name: Nicolasa German Age: 62 yrs Sex: Female : 1960 Arrival Date: 02/03/2023 Time: 11:59 Bed 3 Private MD: Mikey Robison H ED Physician Tyron Mireles HPI: 02/03 13:13 This 62 yrs old Female presents to ER via Wheelchair with complaints of jovita Trouble Walking, Confusion. 13:13 The patient presents to the emergency department with difficulty standing, difficult jovita walking, the patient is off balance. Onset: The symptoms/episode began/occurred 3 day(s) ago. Context: occurred at an unknown location, occurred while the patient was doing normal activity. Associated signs and symptoms: The patient has no apparent associated signs or symptoms. Severity of symptoms: At their worst the symptoms were moderate in the emergency department the symptoms are unchanged. Patient's baseline: Neuro: alert and fully oriented. Current symptoms: confusion. The patient has not experienced similar symptoms in the past. Historical: - Allergies: 12:07 Codeine; iw 12:07 Erythromycin; iw 12:07 Morphine; iw 12:07 PENICILLINS; iw - Home Meds: 12:07 labetalol 200 mg Oral tablet 3 times per day [Active]; hydralazine 25 mg Oral tablet 3 iw times per day [Active]; isosorbide mononitrate 120 mg Oral Tablet, Extended Release 24 hr daily [Active]; aspirin 81 mg Oral tablet,chewable daily [Active]; pantoprazole 40 mg oral tablet, delayed release (enteric coated) daily [Active]; memantine 10 mg oral tablet 2 times per day [Active]; donepezil 10 mg oral tablet twice a day [Active]; - PMHx: 12:07 Diabetes - NIDDM; Hypertension; dialysis MWF; Kidney disease; CVA; iw - Immunization history:: Adult Immunizations up to date. - Social history:: Smoking status: . ROS: 13:14 Constitutional: Negative for fever, chills, and weight loss, Eyes: Negative for injury, jovita pain, redness, and discharge, ENT: Negative for injury, pain, and discharge, Neck: Negative for injury, pain, and swelling, Cardiovascular: Negative for chest pain, palpitations, and edema, Respiratory: Negative for shortness of breath, cough, wheezing, and pleuritic chest pain, Abdomen/GI: Negative for abdominal pain, nausea, vomiting, diarrhea, and constipation, Back: Negative for injury and pain, : Negative for injury, bleeding, discharge, and swelling, MS/Extremity: Negative for injury and deformity, Skin: Negative for injury, rash, and discoloration, Psych: Negative for depression, anxiety, suicide ideation, homicidal ideation, and hallucinations, Allergy/Immunology: Negative for hives, rash, and allergies, Endocrine: Negative for neck swelling, polydipsia, polyuria, polyphagia, and marked weight changes, Hematologic/Lymphatic: Negative for swollen nodes, abnormal bleeding, and unusual bruising. 13:14 Neuro: Positive for altered mental status, dizziness, gait disturbance, weakness. Exam: 13:14 Constitutional: This is a well developed, well nourished patient who is awake, alert, jovita and in no acute distress. Head/Face: Normocephalic, atraumatic. Eyes: Pupils equal round and reactive to light, extra-ocular motions intact. Lids and lashes normal. Conjunctiva and sclera are non-icteric and not injected. Cornea within normal limits. Periorbital areas with no swelling, redness, or edema. ENT: Nares patent. No nasal discharge, no septal abnormalities noted. Tympanic membranes are normal and external auditory canals are clear. Oropharynx with no redness, swelling, or masses, exudates, or evidence of obstruction, uvula midline. Mucous membranes moist. Neck: Trachea midline, no thyromegaly or masses palpated, and no cervical lymphadenopathy. Supple, full range of motion without nuchal rigidity, or vertebral point tenderness. No Meningismus. Chest/axilla: Normal chest wall appearance and motion. Nontender with no deformity. No lesions are appreciated. Cardiovascular: Regular rate and rhythm with a normal S1 and S2. No gallops, murmurs, or rubs. Normal PMI, no JVD. No pulse deficits. Respiratory: Lungs have equal breath sounds bilaterally, clear to auscultation and percussion. No rales, rhonchi or wheezes noted. No increased work of breathing, no retractions or nasal flaring. Abdomen/GI: Soft, non-tender, with normal bowel sounds. No distension or tympany. No guarding or rebound. No evidence of tenderness throughout. Back: No spinal tenderness. No costovertebral tenderness. Full range of motion. Female : Normal external genitalia. Skin: Warm, dry with normal turgor. Normal color with no rashes, no lesions, and no evidence of cellulitis. MS/ Extremity: Pulses equal, no cyanosis. Neurovascular intact. Full, normal range of motion. Psych: Awake, alert, with orientation to person, place and time. Behavior, mood, and affect are within normal limits. 13:14 Neuro: Orientation: to person, place, Not oriented to time, situation, Motor: is normal, is grossly normal based on the patient's age, no acute changes, moves all fours, strength is normal, Sensation: is normal, no obvious gross deficits, appropriate Gait: not tested. Babinski testing is normal, seizure activity, is not displayed by the patient. 13:14 Psych: Exam negative for acute changes, hallucinations, delusions, psychosis, paranoia, Behavior/mood is pleasant, cooperative, Affect is flat, Oriented to person, place, Patient has no thoughts/intents to harm self or others. Judgement / Insight is impaired. Recent memory is impaired. Remote memory is impaired. 13:19 ECG was reviewed by the Attending Physician. [facility] Vital Signs: 12:05 BP 96 / 55; Pulse 82; Resp 16; Temp 97.4; Pulse Ox 99% on R/A; iw 12:57 BP 133 / 57; Pulse 70; ll1 13:35 BP 115 / 49; Pulse 71; Resp 16; Pulse Ox 98% on R/A; ll1 14:50 BP 137 / 56; Pulse 71; Pulse Ox 97% ; ll1 15:54 BP 158 / 60; Pulse 74; Pulse Ox 98% ; ll1 17:25 BP 162 / 76; Pulse 67; Pulse Ox 100% on R/A; ll1 18:07 BP 157 / 58; Pulse 67; Resp 16; Pulse Ox 99% on R/A; ll1 19:15 BP 175 / 61; Pulse 70; Resp 16; Pulse Ox 98% on R/A; jb4 NIH Stroke Scale Scores: 13:14 NIHSS Score: 2 jovita 14:51 NIHSS Score: 2 ll1 MDM: 12:14 Patient medically screened. [facility] 13:17 Differential diagnosis: CVA, electrolyte abnormality, hypoglycemia, intracranial bleed, jovita meningitis, pneumonia, seizure, TIA, UTI, volume depletion. Data reviewed: vital signs, nurses notes, lab test result(s), EKG, radiologic studies, CT scan, MRI, plain films. Consideration of Admission/Observation Patient was admitted/placed on observation. Escalation of care including admission/observation considered. I considered the following discharge prescriptions or medication management in the emergency department Medications were administered in the Emergency Department. See MAR. Test considered but Not performed: Ultrasound no abd usg. Historians other than the Patient: Spouse/Significant Other: informed. Care significantly affected by the following chronic conditions: Diabetes, Hypertension, Chronic Kidney Disease. 02/03 12:17 Order name: Basic Metabolic Panel; Complete Time: 13:08 [facility] 02/03 12:17 Order name: CBC with Diff; Complete Time: 13:08 [facility] 02/03 12:17 Order name: LFT's; Complete Time: 13:08 [facility] 02/03 12:17 Order name: Magnesium; Complete Time: 13:08 [facility] 02/03 12:17 Order name: NT PRO-BNP; Complete Time: 13:08 [facility] 02/03 12:17 Order name: PT-INR; Complete Time: 13:08 [facility] 02/03 12:17 Order name: Troponin HS; Complete Time: 13:08 [facility] 02/03 12:17 Order name: Urinalysis w/ reflexes [facility] 02/03 12:17 Order name: Blood Culture Adult (2) [facility] 02/03 12:17 Order name: Lactate w/ 2H reflex if indic.; Complete Time: 13:12 [facility] 02/03 12:17 Order name: Flu; Complete Time: 14:58 [facility] 02/03 12:17 Order name: SARS RAPID; Complete Time: 14:58 [facility] 02/03 17:27 Order name: Magnesium [facility] 02/03 17:27 Order name: Phosphorus EDMN 02/03 17:27 Order name: T4 Free [facility] 02/03 17:27 Order name: Thyroid Stimulating Hormone EDMN 02/03 17:27 Order name: Troponin High Sensitivity [facility] 02/03 17:27 Order name: Urinalysis w/ reflexes [facility] 02/03 17:27 Order name: CBC with Automated Diff [facility] 02/03 17:27 Order name: CBC with Automated Diff [facility] 02/03 17:27 Order name: Comprehensive Metabolic Panel [facility] 02/03 17:27 Order name: Comprehensive Metabolic Panel [facility] 02/03 17:27 Order name: Lipid Profile [facility] 02/03 17:27 Order name: Lipid Profile [facility] 02/03 20:45 Order name: Potassium [facility] 02/03 20:52 Order name: Lactate Sepsis 2 HR Follow-up [facility] 02/03 21:10 Order name: Hemoglobin A1c [facility] 02/03 12:17 Order name: XRAY Chest (1 view); Complete Time: 14:58 [facility] 02/03 12:17 Order name: CT Head Brain wo Cont; Complete Time: 13:08 [facility] 02/03 14:12 Order name: Brain Wo Cont; Complete Time: 16:49 [facility] 02/03 14:51 Order name: Echo with Doppler [facility] 02/03 12:17 Order name: EKG; Complete Time: 12:18 [facility] 02/03 17:27 Order name: CONS Physician Consult [facility] 02/03 17:27 Order name: Heart Healthy [facility] 02/03 12:17 Order name: Cardiac monitoring; Complete Time: 12:49 [facility] 02/03 12:17 Order name: EKG - Nurse/Tech; Complete Time: 12:49 [facility] 02/03 12:17 Order name: IV Saline Lock; Complete Time: 12:49 [facility] 02/03 12:17 Order name: Labs collected and sent; Complete Time: 12:49 [facility] 02/03 12:17 Order name: O2 Per Protocol; Complete Time: 12:20 [facility] 02/03 12:17 Order name: O2 Sat Monitoring; Complete Time: 12:20 [facility] 02/03 16:50 Order name: Misc. Order: cath ua, now please; Complete Time: 17:13 [facility] EC:19 Rate is 72 beats/min. Rhythm is regular. QRS Brady is Normal. WV interval is normal. QRS jovtia interval is normal. QT interval is normal. No Q waves. T waves are Normal. ST Segment is depressed in leads II, III, aVF, V3, V4, V5, V6. Clinical impression: NSR w/ Non-specific ST/T Changes. Interpreted by me. Reviewed by me. Administered Medications: 12:49 Drug: NS 0.9% IV 1000 ml Route: IV; Rate: 75 ml/hr; Site: right antecubital; ll1 12:49 Drug: foLIC Acid IVPB 1 mg Route: IVPB; Site: right antecubital; ll1 14:49 Follow up: Response: No adverse reaction; IV Status: Completed infusion; IV Intake: ll1 0.2ml 12:49 Drug: Thiamine IV 100 mg Route: IV; Rate: bolus; Site: right antecubital; ll1 14:49 Follow up: IV Status: Completed infusion; IV Intake: 1ml ll1 13:27 Drug: Rocephin IV 1 grams Route: IV; Rate: per protocol; Site: right antecubital; ll1 14:49 Follow up: IV Status: Completed infusion; IV Intake: 50ml ll1 13:27 Drug: Aspirin PO Chewable Tablet 162 mg Route: PO; ll1 14:50 Follow up: Response: No adverse reaction ll1 13:27 Drug: NS 0.9% IV 500 ml Route: IV; Rate: bolus; Site: right antecubital; ll1 14:49 Follow up: IV Status: Completed infusion; IV Intake: 500ml ll1 13:27 Drug: NS 0.9% IV 500 ml Route: IV; Rate: bolus; Site: right antecubital; ll1 17:02 Follow up: Response: No adverse reaction; IV Status: Completed infusion; IV Intake: ll1 500ml 14:49 Drug: Potassium PO Effervescent Tablet 25 mEq Route: PO; ll1 17:02 Follow up: Response: No adverse reaction ll1 Disposition: 13:17 Critical Care:. jovita Disposition Summary: 02/03/23 13:27 Hospitalization Ordered Hospitalization Status: Inpatient Admission jovita Provider: Kev Palmer cha [facility] jovita Condition: Fair jovita Problem: new jovita Symptoms: have improved jovita Bed/Room Type: Standard jovita Room Assignment: [id number](02/03/23 18:42) bd Diagnosis - Ataxia, unspecified jovita - Altered mental status, unspecified jovita - Hypokalemia jovita - Unspecified kidney failure - on HD M,W, THU jovita Forms: - Medication Reconciliation Form jovita - SBAR form jovita Critical care time excluding procedures: 13:17 Critical care time: Bedside Care: 25 minutes, Consultation: 10 minutes, Family jovita Intervention: 10 minutes. Total time: 45 minutes NIH Stroke Scale - NIH Stroke Score Date: 02/03/2023 Time: 13:14 Total Score = 2 10. Dysarthria (speech clarity - read or repeat words) - 0(Normal) 11. Extinction and Inattention (visual/tactile/auditory/spatial/personal) - 0(No abnormality) 1a. Level of Consciousness (LOC) - 0(Alert) 1b. Level of Consciousness (LOC) (Month \T\ Age) - 1(One) 1c. LOC Commands (Open \T\ Closes Eyes/Equine Intern) - 0(Both) 2. Best Gaze (Lateral Gaze Paresis) - 0(Normal) 3. Visual Field Loss - 0(No visual loss) 4. Facial Palsy - 0(Normal) 5a. Left Arm: Motor (10-second hold) - 0(No drift) 5b. Right Arm: Motor (10-second hold) - 0(No drift) 6a. Left Leg: Motor (5-second hold - always test supine) - 0(No drift) 6b. Right Leg: Motor (5-second hold - always test supine) - 0(No drift) 7. Limb Ataxia (finger/nose \T\ heel/tillman - test with eyes open) - 0(Absent) 8. Sensory Loss (pinprick arms/legs/face) - 0(Normal) 9. Best Language: Aphasia (description/naming/reading) - 1(Mild to moderate aphasia) Initials: [facility] NIH Stroke Scale - NIH Stroke Score Date: 02/03/2023 Time: 14:51 Total Score = 2 10. Dysarthria (speech clarity - read or repeat words) - 0(Normal) 11. Extinction and Inattention (visual/tactile/auditory/spatial/personal) - 0(No abnormality) 1a. Level of Consciousness (LOC) - 0(Alert) 1b. Level of Consciousness (LOC) (Month \T\ Age) - 1(One) 1c. LOC Commands (Open \T\ Closes Eyes/Equine Intern) - 0(Both) 2. Best Gaze (Lateral Gaze Paresis) - 0(Normal) 3. Visual Field Loss - 0(No visual loss) 4. Facial Palsy - 0(Normal) 5a. Left Arm: Motor (10-second hold) - 0(No drift) 5b. Right Arm: Motor (10-second hold) - 0(No drift) 6a. Left Leg: Motor (5-second hold - always test supine) - 0(No drift) 6b. Right Leg: Motor (5-second hold - always test supine) - 0(No drift) 7. Limb Ataxia (finger/nose \T\ heel/tillman - test with eyes open) - 0(Absent) 8. Sensory Loss (pinprick arms/legs/face) - 0(Normal) 9. Best Language: Aphasia (description/naming/reading) - 1(Mild to moderate aphasia) Initials: ll1 Signatures: Dispatcher [employer] EDMS Kelley Lara Corey, MD MD cha Williams, Irene, RN RN iw Lewis, Lynsay, RN RN ll1 Corrections: (The following items were deleted from the chart) 14:12 13:13 MR STROKE PROTOCOL+MRI.RAD.BRZ ordered. EDMS EDMS 18:42 13:27 jovita michelle
--- NOTE | 2023-02-03 13:27 | ER ---
Nurse's Notes [facility] Name: Nicolasa German Age: 62 yrs Sex: Female : 1960 Arrival Date: 02/03/2023 Time: 11:59 Bed 3 Private MD: Mikey Robison H Diagnosis: Ataxia, unspecified;Altered mental status, unspecified;Hypokalemia;Unspecified kidney failure-on HD M,, THU Presentation: 02/03 12:05 Chief complaint: Spouse and/or significant other states: her right foot is tuned out to iw the side , she can't walk, she's not eating, seems confused, seems like she is having a stroke again, symptoms started 2-3 days ago. Coronavirus screen: At this time, the client does not indicate any symptoms associated with coronavirus-19. Ebola Screen: Patient negative for fever greater than or equal to 101.5 degrees Fahrenheit, and additional compatible Ebola Virus Disease symptoms Patient denies exposure to infectious person. Patient denies travel to an Ebola-affected area in the 21 days before illness onset. No symptoms or risks identified at this time. No acute neurological deficit is noted. Pre-hospital glucose is not applicable to this patient. Initial Sepsis Screen: Does the patient meet any 2 criteria? No. Patient's initial sepsis screen is negative. Does the patient have a suspected source of infection? No. Patient's initial sepsis screen is negative. Risk Assessment: Do you want to hurt yourself or someone else? Patient reports no desire to harm self or others. Onset of symptoms was February 01, 2023. 12:05 Method Of Arrival: Wheelchair iw 12:05 Acuity: RAFI 3 iw Stroke Activation: Symptom onset > 6 hours Physician: Stroke Attending; Name: ; Notified At: ; Arrived At: Physician: Chief Stroke Resident; Name: ; Notified At: ; Arrived At: Physician: Stroke Resident; Name: ; Notified At: ; Arrived At: Physician: ED Attending; Name: ; Notified At: ; Arrived At: Physician: ED Resident; Name: ; Notified At: ; Arrived At: Historical: - Allergies: 12:07 Codeine; iw 12:07 Erythromycin; iw 12:07 Morphine; iw 12:07 PENICILLINS; iw - Home Meds: 12:07 labetalol 200 mg Oral tablet 3 times per day [Active]; hydralazine 25 mg Oral tablet 3 iw times per day [Active]; isosorbide mononitrate 120 mg Oral Tablet, Extended Release 24 hr daily [Active]; aspirin 81 mg Oral tablet,chewable daily [Active]; pantoprazole 40 mg oral tablet, delayed release (enteric coated) daily [Active]; memantine 10 mg oral tablet 2 times per day [Active]; donepezil 10 mg oral tablet twice a day [Active]; - PMHx: 12:07 Diabetes - NIDDM; Hypertension; dialysis MWF; Kidney disease; CVA; iw - Immunization history:: Adult Immunizations up to date. - Social history:: Smoking status: . Screenin:50 [facility] ED Fall Risk Assessment (Adult) History of falling in the last 3 months, ll1 including since admission Yes- single mechanical fall (1 pt) Confusion or Disorientation Yes (5 pts) Impaired Gait Yes (1 pt) Mobility Assist Device Used Yes (1 pt) Score/Fall Risk Level 3 or more points = High Risk Oriented to surroundings, Maintained a safe environment, Educated pt \T\ family on fall prevention, incl call for assistance when getting out of bed, Hourly rounding (assess needs \T\ fall precautionary measures) done, Used ambulatory aids as needed (educated on \T\ assisted with), Remained with patient while ambulating. Abuse screen: Denies threats or abuse. Nutritional screening: No deficits noted. Tuberculosis screening: No symptoms or risk factors identified. Assessment: 12:57 Reassessment: No changes from previously documented assessment. Patient and/or family ll1 updated on plan of care and expected duration. Pain level reassessed. Patient is alert, oriented x 3, equal unlabored respirations, skin warm/dry/pink. 13:05 Reassessment: No changes from previously documented assessment. Dr. Mireles at BS. ll1 13:50 Reassessment: Pt at MRI. aa5 14:50 Reassessment: No changes from previously documented assessment. Patient and/or family ll1 updated on plan of care and expected duration. Pain level reassessed. Patient is alert, oriented x 3, equal unlabored respirations, skin warm/dry/pink. 14:51 VAN Scoring: Neglect: No neglect noted. TNKase (Tenecteplase) Screening: ll1 Contraindications: Patient reports onset of signs and symptoms of stroke greater than 6 hours ago:. Pain: Denies pain. 16:36 Reassessment: No changes from previously documented assessment. given extra warm ll1 blankets. 17:25 Reassessment: No changes from previously documented assessment. Patient and/or family ll1 updated on plan of care and expected duration. Pain level reassessed. 19:36 Reassessment: Patient appears in no apparent distress at this time. Patient and/or jb4 family updated on plan of care and expected duration. Pain level reassessed. Patient is alert, oriented x 3, equal unlabored respirations, skin warm/dry/pink. attempted to call report, instructed to call back in 30 minutes. Vital Signs: 12:05 BP 96 / 55; Pulse 82; Resp 16; Temp 97.4; Pulse Ox 99% on R/A; iw 12:57 BP 133 / 57; Pulse 70; ll1 13:35 BP 115 / 49; Pulse 71; Resp 16; Pulse Ox 98% on R/A; ll1 14:50 BP 137 / 56; Pulse 71; Pulse Ox 97% ; ll1 15:54 BP 158 / 60; Pulse 74; Pulse Ox 98% ; ll1 17:25 BP 162 / 76; Pulse 67; Pulse Ox 100% on R/A; ll1 18:07 BP 157 / 58; Pulse 67; Resp 16; Pulse Ox 99% on R/A; ll1 19:15 BP 175 / 61; Pulse 70; Resp 16; Pulse Ox 98% on R/A; jb4 NIH Stroke Scale Scores: 13:14 NIHSS Score: 2 jovita 14:51 NIHSS Score: 2 ll1 ED Course: 12:00 Patient arrived in ED. rg4 12:00 Mikey Robison DO is Private Physician. rg4 12:07 Triage completed. iw 12:11 Arm band placed on. iw 12:12 Jimenez Yoder, RN is Primary Nurse. bp 12:14 Tyron Mireles MD is Attending Physician. jovita 12:20 Ronel Ledbetter, BELLA is Primary Nurse. ll1 12:28 CT Head Brain wo Cont In Process Unspecified. EDMS 12:40 Inserted saline lock: 22 gauge in right antecubital area, using aseptic technique. ll1 Blood collected. 12:57 Flu Sent. ll1 12:57 SARS RAPID Sent. ll1 12:57 Lactate w/ 2H reflex if indic. Sent. ll1 12:57 Blood Culture Adult (2) Sent. ll1 13:00 XRAY Chest (1 view) In Process Unspecified. EDMS 13:23 Kev Palmer MD is Hospitalizing Provider. jovita 14:12 Brain Wo Cont In Process Unspecified. EDMS 14:51 Patient has correct armband on for positive identification. Bed in low position. Call ll1 light in reach. Side rails up X2. Client placed on continuous cardiac and pulse oximetry monitoring. NIBP monitoring applied. threat monitoring analyst on. 17:10 Straight cath inserted, using sterile technique, 16 Fr. Specimen obtained. urine sent aa5 to lab. 19:38 No provider procedures requiring assistance completed. Patient admitted, IV remains in jb4 place. Administered Medications: 12:49 Drug: NS 0.9% IV 1000 ml Route: IV; Rate: 75 ml/hr; Site: right antecubital; ll1 12:49 Drug: foLIC Acid IVPB 1 mg Route: IVPB; Site: right antecubital; ll1 14:49 Follow up: Response: No adverse reaction; IV Status: Completed infusion; IV Intake: ll1 0.2ml 12:49 Drug: Thiamine IV 100 mg Route: IV; Rate: bolus; Site: right antecubital; ll1 14:49 Follow up: IV Status: Completed infusion; IV Intake: 1ml ll1 13:27 Drug: Rocephin IV 1 grams Route: IV; Rate: per protocol; Site: right antecubital; ll1 14:49 Follow up: IV Status: Completed infusion; IV Intake: 50ml ll1 13:27 Drug: Aspirin PO Chewable Tablet 162 mg Route: PO; ll1 14:50 Follow up: Response: No adverse reaction ll1 13:27 Drug: NS 0.9% IV 500 ml Route: IV; Rate: bolus; Site: right antecubital; ll1 14:49 Follow up: IV Status: Completed infusion; IV Intake: 500ml ll1 13:27 Drug: NS 0.9% IV 500 ml Route: IV; Rate: bolus; Site: right antecubital; ll1 17:02 Follow up: Response: No adverse reaction; IV Status: Completed infusion; IV Intake: ll1 500ml 14:49 Drug: Potassium PO Effervescent Tablet 25 mEq Route: PO; ll1 17:02 Follow up: Response: No adverse reaction ll1 Medication: 18:07 VIS not applicable for this client. ll1 Intake: 14:49 IV: 500ml; Total: 500ml. ll1 14:49 IV: 0ml; Total: 500ml. ll1 14:49 IV: 1ml; Total: 501ml. ll1 14:49 IV: 50ml; Total: 551ml. ll1 17:02 IV: 500ml; Total: 1051ml. ll1 Outcome: 13:27 Decision to Hospitalize by Provider. jovita 21:11 Admitted to Med/surg accompanied by tech, via stretcher, room 431, with chart, Report jb4 called to BELLA Mcleod 21:11 Condition: stable 21:11 Discharge instructions given to patient, family, Instructed on the need for admit, Demonstrated understanding of instructions. 21:11 Patient left the ED. jb4 NIH Stroke Scale - NIH Stroke Score Date: 02/03/2023 Time: 13:14 Total Score = 2 10. Dysarthria (speech clarity - read or repeat words) - 0(Normal) 11. Extinction and Inattention (visual/tactile/auditory/spatial/personal) - 0(No abnormality) 1a. Level of Consciousness (LOC) - 0(Alert) 1b. Level of Consciousness (LOC) (Month \T\ Age) - 1(One) 1c. LOC Commands (Open \T\ Closes Eyes/Crutching Contractor) - 0(Both) 2. Best Gaze (Lateral Gaze Paresis) - 0(Normal) 3. Visual Field Loss - 0(No visual loss) 4. Facial Palsy - 0(Normal) 5a. Left Arm: Motor (10-second hold) - 0(No drift) 5b. Right Arm: Motor (10-second hold) - 0(No drift) 6a. Left Leg: Motor (5-second hold - always test supine) - 0(No drift) 6b. Right Leg: Motor (5-second hold - always test supine) - 0(No drift) 7. Limb Ataxia (finger/nose \T\ heel/tillman - test with eyes open) - 0(Absent) 8. Sensory Loss (pinprick arms/legs/face) - 0(Normal) 9. Best Language: Aphasia (description/naming/reading) - 1(Mild to moderate aphasia) Initials: jovita NIH Stroke Scale - NIH Stroke Score Date: 02/03/2023 Time: 14:51 Total Score = 2 10. Dysarthria (speech clarity - read or repeat words) - 0(Normal) 11. Extinction and Inattention (visual/tactile/auditory/spatial/personal) - 0(No abnormality) 1a. Level of Consciousness (LOC) - 0(Alert) 1b. Level of Consciousness (LOC) (Month \T\ Age) - 1(One) 1c. LOC Commands (Open \T\ Closes Eyes/Crutching Contractor) - 0(Both) 2. Best Gaze (Lateral Gaze Paresis) - 0(Normal) 3. Visual Field Loss - 0(No visual loss) 4. Facial Palsy - 0(Normal) 5a. Left Arm: Motor (10-second hold) - 0(No drift) 5b. Right Arm: Motor (10-second hold) - 0(No drift) 6a. Left Leg: Motor (5-second hold - always test supine) - 0(No drift) 6b. Right Leg: Motor (5-second hold - always test supine) - 0(No drift) 7. Limb Ataxia (finger/nose \T\ heel/tillman - test with eyes open) - 0(Absent) 8. Sensory Loss (pinprick arms/legs/face) - 0(Normal) 9. Best Language: Aphasia (description/naming/reading) - 1(Mild to moderate aphasia) Initials: ll1 Signatures: Dispatcher [employer] Tyron Gutiérrez MD MD cha Williams, Irene, Bree Waterman RN, RN RN Keisha Chung James, RN RN jb4 Jimenez Yoder RN RN bp Lewis, Lynsay, RN RN ll1 Corrections: (The following items were deleted from the chart) 19:39 19:36 Reassessment: Patient appears in no apparent distress at this time. jb4 Patient and/or family updated on plan of care and expected duration. Pain level reassessed. Patient is alert, oriented x 3, equal unlabored respirations, skin warm/dry/pink. jb4 21:11 21:11 General: Appears jb4 jb4
--- NOTE | 2023-02-03 13:38 | RAD REPORT ---
EXAM DESCRIPTION: RADChest Single View02/03/2023 12:58 pm CLINICAL HISTORY: COUGH COMPARISON: Chest Single View dated 07/08/2021; Chest Pa And Lat (2 Views) dated 02/14/2019; Chest Sin gle View dated 07/24/2017 TECHNIQUE: Portable AP view of the chest. FINDINGS: The lungs are clear. No pneumothorax or effusion. The cardiomediastinal contours are unrem arkable. IMPRESSION: No acute cardiopulmonary process.
[2023-02-03] MEDS ORDERED: POTASSIUM 25 MEQ EFFERV TAB ONE (13:55)
--- NOTE | 2023-02-03 15:23 | RAD REPORT ---
EXAM DESCRIPTION: MRI - Brain Wo Cont - 02/03/2023 2:33 pm CLINICAL HISTORY: MENTAL STATUS CHANGE COMPARISON: Brain MRI 07/08/2021. Head CT of earlier the same day TECHNIQUE: Multiplanar multisequence MRI of the brain performed without IV contrast. FINDINGS: No evidence of acute infarct or other diffusion signal abnormality. No evidence of acute intracranial hemorrhage or abnormal extra-axial fluid collections. Moderate diffuse parenchymal volume loss. Ventricular caliber is stable. Midline structures are unrem arkable. Regions of encephalomalacia with adjacent gliosis more extensive in the right more than left occipita l lobe. These have developed since the 2020 MRI and are most suggestive of sequelae of remote ischemi a. Stable confluent white matter signal abnormalities most pronounced in the periventricular white matte r, as well as some areas extending to the juxta cortical bilateral frontal and parietal white matter. Interval improvement of extensive signal abnormalities involving the thalami, brainstem, and dentate nuclei, seen on the prior MRI. There are extensive punctate foci of susceptibility signal abnormalit y in the basal ganglia regions, as well as the brain stem, and to lesser extent in the very insular r egions, with some scattered foci near the cortex and in the cerebellar hemispheres. The distribution is most suggestive of sequelae of longstanding hypertensive encephalopathy. No mass effect or midline shift. Major vascular flow voids are preserved. Patchy opacification of the left mastoid air cells. Paranasal sinuses are clear. 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 IMPRESSION: No acute intracranial process. No evidence of ventriculomegaly or mass effect. Since the 2020 MRI, interval development of bilateral occipital regions of encephalomalacia more pron ounced on the right, suggestive of sequelae of remote ischemia. Other extensive white matter signal abnormalities with corresponding centrally distributed foci of oviedo sceptibility signal abnormality suggestive of remote micro hemorrhages, most compatible with sequelae of longstanding hypertensive encephalopathy. The findings were communicated to Tyron Mireles on 02/03/2023 at 15:15 hours.
[2023-02-03] MEDS ORDERED: ACETAMINOPHEN 325 MG TABLET PO PRN (17:18)
[2023-02-03] MEDS ORDERED: TRAMADOL HCL 50 MG TAB PO PRN (17:23)
[2023-02-03] MEDS ORDERED: ONDANSETRON 4 MG/2 ML VIAL IV PRN (17:25)
[2023-02-03] MEDS ORDERED: GLUCAGON 1 MG/VIAL IM PRN (17:32)
[2023-02-03] MEDS ORDERED: D50W 25 GM/50 ML SYRINGE IV PRN (17:32)
--- NOTE | 2023-02-03 17:36 | P.HP ---
Certification for Inpatient Patient admitted to: Inpatient With expected LOS: >2 Midnights Patient will require the following post-hospital care: None Practitioner: I am a practitioner with admitting privileges, knowledge of patient current condition, hospital course, and medical plan of care. Services: Services provided to patient in accordance with Admission requirements found in Title 42 Section 412.3 of the Code of Federal Regulations Patient History Date of Service: 02/03/23 Reason for admission: Altered mental status and ataxic gait. History of Present Illness: Patient is a 62-year-old female with a past medical history significant for ESRD, DM 2, hypertension, CVA, nicotine dependence who presents with complaint of worsening confusion and difficulty walking. Patient spouse reported that patient is confused at baseline. Patient is alert and oriented x2. Patient unable to provide any meaningful history. Patient starts reported the patient is able to ambulate without assistance and the patient has been having worsening confusion in the last 4 days. Patient's per reported the patient started having difficulty with ambulation and this morning patient was not able to walk. Patient spouse also reported that patient has been having poor appetite. Patient denies any other signs or symptoms. Symptoms are aggravated or relieved by nothing. Patient spouse decided to bring patient to the hospital for medical evaluation. Of note, family reported that patient fell last week. Family indicated that patient did not hit her head or lost consciousness. Allergies codeine Allergy (Verified 02/14/19 11:20) Itching/Hives/Rash morphine Allergy (Verified 02/14/19 11:20) Unknown Penicillins Allergy (Verified 02/14/19 11:20) Unknown Erythromycin Allergy (Uncoded 02/14/19 11:20) Unknown Home Medications: Amlodipine [Norvasc*] 1 tab PO DAILY #30 tab 07/25/17 Aspirin Chewable [Aspirin Chewable*] 81 mg PO DAILY #30 tab.chew 07/25/17 Furosemide 1 tab PO DAILY #30 tablet 07/25/17 Glimepiride 1 tab PO DAILY #30 tablet 07/25/17 Hydralazine [Apresoline*] 1 tab PO BID #60 tab 07/25/17 Losartan Potassium 1 tab PO DAILY #30 tablet 07/25/17 Metformin HCl 1 tab PO BID #30 tablet 07/25/17 Potassium Chloride [K-Dur] 20 meq PO DAILY #15 tab.er.prt 07/25/17 Simvastatin 1 tab PO DAILY #30 tablet 07/25/17 - Past Medical/Surgical History Diabetic: Yes -: Hypertension -: Diabetes mellitus type 2 -: Dyslipidemia -: breast reduction - Family History Father -: Heart disease, Hypertension - Social History Smoking Status: Heavy Tobacco smoker (>10 cigarettes/day) Smoking therapy provided: Yes Patient receptive to therapy: No Alcohol use: No CD- Drugs: No Caffeine use: No Place of Residence: Home Review of Systems is unable to be obtained (Patient confused and unable to provide any meaningful history) Physical Examination - Physical Exam General: Alert, In no apparent distress, Oriented x2, Confused HEENT: Atraumatic, PERRLA, Mucous membr. moist/pink, EOMI, Sclerae nonicteric Neck: Supple, 2+ carotid pulse no bruit, No LAD, Without JVD or thyroid abnormality Respiratory: Clear to auscultation bilaterally, Normal air movement Cardiovascular: No edema, Regular rate/rhythm, Normal S1 S2 Capillary refill: <2 Seconds Gastrointestinal: Normal bowel sounds, Soft and benign, No tenderness Musculoskeletal: No clubbing, No swelling, No tenderness Integumentary: No rashes, Other (Present in the right arm, right chest wall) Neurological: Normal speech, Normal tone, Normal affect, Abnormal gait, Abnormal strength Lymphatics: No axilla or inguinal lymphadenopathy - Studies Laboratory Data (last 24 hrs) 02/03/23 12:35: PT 11.2, INR 1.02 02/03/23 12:35: WBC 11.50 H, Hgb 11.7 L, Hct 35.0 L, Plt Count 209 02/03/23 12:35: Sodium 140, Potassium 3.1 L, BUN 33 H, Creatinine 4.00 H, Glucose 134 H, Magnesium 1.9, Total Bilirubin 0.5, AST 24, ALT 36, Alkaline Phosphatase 96 Microbiology Data (last 24 hrs): 02/03/23 12:52 Nasopharnyx Influenza Type A Antigen Screen - Final 02/03/23 12:52 Nasopharnyx Influenza Type B Antigen Screen - Final Assessment and Plan - Plan --Acute metabolic encephalopathy. Patient is alert and oriented x2. Patients spouse indicated that patient is confused at baseline. MRI brain does not indicate any acute intracranial abnormality. Neurology consulted. We will await further recommendations. --Delirium. Patient confused at baseline. Worsening confusion likely secondary to UTI. Continue supportive care. --UTI POA. Patient placed on antibiotics. Urine cultures pending. -- ESRD. Nephrology consulted. Further management per para operator. --DM2. BS monitoring with sliding scale insulin. --Nicotine dependence. Patient placed on nicotine patch. Patient unable to appreciate nicotine cessation education. -- History of CVA. Continue aspirin and statin. --Hypertension. Stable. Continue home medication --HLD. Continue statin. --Hypokalemia. Replete as needed. -- Anemia of chronic disease. H&H stable. We will continue to monitor hemoglobin and transfuse if less than 7.0. -- Ataxic gait. Unclear etiology. Neurologist on board. PT\OT eval and treat. We will await further recommendations from neurologist. --DVT prophylaxis with heparin subQ. Discharge Plan: Home Plan to discharge in: Greater than 2 days - Advance Directives Does patient have a Living Will: No Does patient have a Durable POA for Healthcare: No - Code Status/Comfort Care Code Status Assessed: Yes Physician Review: Patient Assessed, Agree with Above Assessment and Plan Critical Care: No
[2023-02-03 17:40] LABS: Specific Gravity 1.011 (1.005-1.030); Urine Bacteria <20 /HPF (<20); Urine Bilirubin NEGATIVE (Negative); Urine Blood Negative (Negative); Urine Clarity Clear (Clear); Urine Color Light-Yellow (Yellow); Urine Glucose NEGATIVE (Negative); Urine Protein 2+ (Negative); Urine RBC <5 /HPF (None Seen); Urine Urobilinogen Normal (Normal); Urine pH 8.5 (5.0-7.0)
[2023-02-03 21:00] LABS: Magnesium 1.7 mg/dL (1.6-2.4); Phosphorus 2.5 mg/dL (2.5-4.9); Thyroid Stimulating Hormone 1.24 uIU/mL (0.358-3.740); Troponin High Sensitivity 17.5 pg/mL (<58.9)
--- NOTE | 2023-02-03 21:50 | P.CNS ---
Date of Consult: 02/03/23 Reason for Consult: ESRD Requesting Physician: Kev Palmer Chief Complaint: Altered mental status and ataxic gait. History of Present Illness: Patient is a 62-year-old female with a past medical history significant for ESRD, DM 2, hypertension, CVA, nicotine dependence who presents with complaint of worsening confusion and difficulty walking. Patient spouse reported that patient is confused at baseline. Patient is alert and oriented x2. Patient unable to provide any meaningful history. Patient starts reported the patient is able to ambulate without assistance and the patient has been having worsening confusion in the last 4 days. Patient's per reported the patient started having difficulty with ambulation and this morning patient was not able to walk. Patient spouse also reported that patient has been having poor appetite. Patient denies any other signs or symptoms. Symptoms are aggravated or relieved by nothing. Patient spouse decided to bring patient to the hospital for medical evaluation. Of note, family reported that patient fell last week. Family indicated that patient did not hit her head or lost consciousness. [id number] 13:13 This 62 yrs old Female presents to ER via Wheelchair with complaints of jovita Trouble Walking, Confusion. 13:13 The patient presents to the emergency department with difficulty standing, difficult jovita walking, the patient is off balance. Onset: The symptoms/episode began/occurred 3 day(s) ago. Context: occurred at an unknown location, occurred while the patient was doing normal activity. Associated signs and symptoms: The patient has no apparent associated signs or symptoms. Severity of symptoms: At their worst the symptoms were moderate in the emergency department the symptoms are unchanged. Patient's baseline: Neuro: alert and fully oriented. Current symptoms: confusion. The patient has not experienced similar symptoms in the past. Allergies codeine Allergy (Verified 02/14/19 11:20) Itching/Hives/Rash morphine Allergy (Verified 02/03/23 22:34) Hives/Rash Penicillins Allergy (Verified 02/03/23 22:34) Hives/Rash Erythromycin Allergy (Uncoded 02/03/23 22:34) Hives/Rash Home medications list reviewed: Yes Home Medications: Amlodipine [Norvasc*] 1 tab PO DAILY #30 tab 07/25/17 Aspirin Chewable [Aspirin Chewable*] 81 mg PO DAILY #30 tab.chew 11/11/17 Furosemide 1 tab PO DAILY #30 tablet 07/25/17 Glimepiride 1 tab PO DAILY #30 tablet 07/25/17 Hydralazine [Apresoline*] 1 tab PO BID #60 tab 07/25/17 Losartan Potassium 1 tab PO DAILY #30 tablet 07/25/17 Metformin HCl 1 tab PO BID #30 tablet 07/25/17 Potassium Chloride [K-Dur] 20 meq PO DAILY #15 tab.er.prt 07/25/17 Simvastatin 1 tab PO DAILY #30 tablet 07/25/17 - Past Medical/Surgical History Diabetic: Yes -: HTN -: DM II -: HLD -: ESRD on HD (Dr. Izaguirre) -: breast reduction - Family History Father Medical History: Heart disease, Hypertension - Social History Smoking Status: Current every day smoker Alcohol use: No CD- Drugs: No Caffeine use: No Place of Residence: Home Review of Systems 10-point ROS is otherwise unremarkable General: Weakness Neurological: Weakness, Confusion Physical Examination General: In no apparent distress, Cooperative HEENT: Atraumatic Neck: Supple Respiratory: Clear to auscultation bilaterally Cardiovascular: No edema, Regular rate/rhythm Gastrointestinal: Soft and benign, Non-distended Musculoskeletal: No clubbing, No contractures Integumentary: No rashes, No cyanosis Neurological: Normal speech, Dementia Laboratory Data (last 24 hrs) 02/03/23 12:35: PT 11.2, INR 1.02 02/03/23 12:35: WBC 11.50 H, Hgb 11.7 L, Hct 35.0 L, Plt Count 209 02/03/23 12:35: Sodium 140, Potassium 3.1 L, BUN 33 H, Creatinine 4.00 H, Glucose 134 H, Magnesium 1.9, Total Bilirubin 0.5, AST 24, ALT 36, Alkaline Phosphatase 96 Imagings Data: [id number] [facility]58 [facility] CLINICAL HISTORY: COUGH COMPARISON: Chest Single View dated 07/08/2021; Chest Pa And Lat (2 Views) dated 02/14/2019; Chest Single View dated 07/24/2017 TECHNIQUE: Portable AP view of the chest. FINDINGS: The lungs are clear. No pneumothorax or effusion. The cardiomediastinal contours are unremarkable. IMPRESSION: No acute cardiopulmonary process. [id number] EXAM DESCRIPTION: CT - Head Brain Wo Cont - 02/03/2023 12:28 pm CLINICAL HISTORY: Dizziness;Confused Headache, drowsiness COMPARISON: Head Brain Wo Cont dated 07/08/2021 TECHNIQUE: All CT scans are performed using dose optimization technique as appropriate and may include automated exposure control or mA/KV adjustment according to patient size. FINDINGS: No intracranial hemorrhage, hydrocephalus or extra-axial fluid collection.Moderate generalized brain atrophy is present with moderate periventricular and deep white matter chronic microvascular ischemic jovita nges.There is an area of diminished density seen in the right occipital pole which has the appearance of subacute CVA. The paranasal sinuses and mastoids are clear. The calvarium is intact. IMPRESSION: Evidence of a 2-3 cm area of intermediate diminished density likely representing subacute CVA. No hemorrhage is seen. Recommend MRI of the brain for further stroke workup evaluation. [id number] EXAM DESCRIPTION: MRI - Brain Wo Cont - 02/03/2023 2:33 pm CLINICAL HISTORY: MENTAL STATUS CHANGE COMPARISON: Brain MRI 07/08/2021. Head CT of earlier the same day TECHNIQUE: Multiplanar multisequence MRI of the brain performed without IV contrast. FINDINGS: No evidence of acute infarct or other diffusion signal abnormality. No evidence of acute intracranial hemorrhage or abnormal extra-axial fluid collections. Moderate diffuse parenchymal volume loss. Ventricular caliber is stable. Midline structures are unremarkable. Regions of encephalomalacia with adjacent gliosis more extensive in the right more than left occipital lobe. These have developed since the 2020 MRI and are most suggestive of sequelae of remote ischemia. Stable confluent white matter signal abnormalities most pronounced in the periventricular white matter, as well as some areas extending to the juxta cortical bilateral frontal and parietal white matter. Interval improvement of extensive signal abnormalities involving the thalami, brainstem, and dentate nuclei, seen on the prior MRI. There are extensive punctate foci of susceptibility signal abnormality in the basal ganglia regions, as well as the brain stem, and to lesser extent in the very insular regions, with some scattered foci near the cortex and in the cerebellar hemispheres. The distribution is most suggestive of sequelae of longstanding hypertensive encephalopathy. No mass effect or midline shift. Major vascular flow voids are preserved. Patchy opacification of the left mastoid air cells. Paranasal sinuses are clear. A small Thornwaldt cyst is incidentally noted. IMPRESSION: No acute intracranial process. No evidence of ventriculomegaly or mass effect. Since the 2020 MRI, interval development of bilateral occipital regions of encephalomalacia more pronounced on the right, suggestive of sequelae of remote ischemia. Other extensive white matter signal abnormalities with corresponding centrally distributed foci of susceptibility signal abnormality suggestive of remote micro hemorrhages, most compatible with sequelae of longstanding hypertensive encephalopathy. Conclusions/Impression: ESRD on HD Proteinuria -HD TIW MWF Hypokalemia -Replete as ordered HTN with CKD/ CHF -Restart antihypertensives as indicated Diastolic CHF, chronic -HD with UF DM II with CKD -RISS Anemia in CKD -Retacrit prn CKD MBD -Start Ergo Cigarette smoker -Continue Nicotine patch Toxic Metabolic Encephalopathy Acute GN Cystitis -Continue Rocephin -Follow up culture Vascular Dementia Decreased functional ability -Neurology following -PT as tolerated Case reviewed with the hospitalist team Thank you kindly for the consultation
[2023-02-03] MEDS ORDERED: NA CHLORIDE 0.9% 1,000 ML IV PRN (22:05)
[2023-02-03] MEDS ORDERED: MANNITOL 25% 12.5 GM/50 ML VIAL IV PRN (22:05)
[2023-02-03] MEDS: HEPARIN 5000 UNIT/ML 1 ML VIAL SQ SCH (22:15)
[2023-02-03] MEDS: INSULIN -REGULAR HUMAN 50 UNIT/0.5 ML ML SQ SCH (22:20)
[2023-02-03] MEDS: CEFTRIAXONE 1,000 MG in NA CHLORIDE 0.9% 50 ML IVPB SCH (22:22)
[2023-02-03] MEDS ORDERED: ALBUMIN HUMAN 25% 50 ML IV SCH (23:00)
[2023-02-04 00:11] VITALS: BMI 22.3
--- NOTE | 2023-02-04 04:56 | EKG ---
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
[2023-02-04 06:31] LABS: Absolute Lymphocytes (CBC) 3.2 K/uL (0.7-4.9); Lymphocytes % 29.2 % (15.3-44.8); MCV 93.5 fL (80-100); MPV 8.9 fL (7.6-11.3); RBC Red Blood Cell Count 3.53 M/uL (3.86-4.86)
[2023-02-04 06:50] LABS: ALT/SGPT 29 U/L (13-56); AST/SGOT 18 U/L (15-37); Albumin 3.4 g/dL (3.4-5.0); Alkaline Phosphatase 85 U/L (45-117); BUN Blood Urea Nitrogen 39 mg/dL (7-18); Bicarbonate 25 mEq/L (21-32); Bilirubin Total 0.2 mg/dL (0.2-1.0); Glomerular Filtration Rate 12 ml/min (=/>90); Glucose Level 101 mg/dL (74-106); HDL Cholesterol 29 mg/dL (40-60); Potassium 3.1 mEq/L (3.5-5.1); Protein, Total 6.6 g/dL (6.4-8.2); Sodium Level 143 mEq/L (136-145)
[2023-02-04 07:04] LABS: LDL, Direct 156 mg/dL (100-129)
[2023-02-04] MEDS: INSULIN -REGULAR HUMAN 50 UNIT/0.5 ML ML SQ SCH ×4 (07:30→21:00)
[2023-02-04] MEDS ORDERED: DRISDOL (VITAMIN D=ERGOCALCIFEROL) 50000 UNIT CAP PO SCH (09:00)
[2023-02-04] MEDS ORDERED: ENOXAPARIN 40 MG/0.4 ML SQ SCH (09:00)
[2023-02-04] MEDS: NICOTINE 21 MG/PAT TD SCH (10:10)
[2023-02-04] MEDS: DOCUSATE NA 100 MG CAP PO SCH ×2 (10:10→21:00)
[2023-02-04] MEDS: ASPIRIN 81 MG CHEWABLE TABLET PO SCH (10:10)
[2023-02-04] MEDS: HEPARIN 5000 UNIT/ML 1 ML VIAL SQ SCH ×2 (10:11→21:19)
[2023-02-04] MEDS ORDERED: D10W 125 ML IV PRN (10:50)
[2023-02-04] MEDS: LOSARTAN POTASSIUM 50 MG TABLET PO SCH (11:35)
[2023-02-04 12:29] LABS: Hepatitis B surface AG Interp. Nonreactive (Nonreactive)
--- NOTE | 2023-02-04 12:38 | P.PN ---
Nephrology note (S) Pt seen on HD, remains confused although at baseline pt's responses when seen on dialysis at her OP unit are usually brief and MRI brain imaging yesterday showed mostly chronic changes (encephalomalacia, microischemic changes, other). BP elevated, cuff adjusted from lower shins to Rt upper arm and even higher, UF goal revised, home BP med(s) ordered. (O) Vitals reviewed in the EMR General: In no apparent distress, Cooperative HEENT: Atraumatic, sclera anicteric Neck: Supple Respiratory: Clear to auscultation bilaterally Cardiovascular: No edema, Regular rate/rhythm mostly Gastrointestinal: Soft, ND, NT Ext: Lt UE AVF, no LE edema Neurological: Awake, responsive but not oriented to place or time. No speech dysarthria Laboratory Data (last 24 hrs) Reviewed in the EMR [id number] EXAM DESCRIPTION: MRI - Brain Wo Cont - 02/03/2023 2:33 pm CLINICAL HISTORY: MENTAL STATUS CHANGE COMPARISON: Brain MRI 07/08/2021. Head CT of earlier the same day TECHNIQUE: Multiplanar multisequence MRI of the brain performed without IV contrast. FINDINGS: No evidence of acute infarct or other diffusion signal abnormality. No evidence of acute intracranial hemorrhage or abnormal extra-axial fluid collections. Moderate diffuse parenchymal volume loss. Ventricular caliber is stable. Midline structures are unremarkable. Regions of encephalomalacia with adjacent gliosis more extensive in the right more than left occipital lobe. These have developed since the 2020 MRI and are most suggestive of sequelae of remote ischemia. Stable confluent white matter signal abnormalities most pronounced in the periventricular white matter, as well as some areas extending to the juxta cortical bilateral frontal and parietal white matter. Interval improvement of extensive signal abnormalities involving the thalami, brainstem, and dentate nuclei, seen on the prior MRI. There are extensive punctate foci of susceptibility signal abnormality in the basal ganglia regions, as well as the brain stem, and to lesser extent in the very insular regions, with some scattered foci near the cortex and in the cerebellar hemispheres. The distribution is most suggestive of sequelae of longstanding hypertensive encephalopathy. No mass effect or midline shift. Major vascular flow voids are preserved. Patchy opacification of the left mastoid air cells. Paranasal sinuses are clear. A small Thornwaldt cyst is incidentally noted. IMPRESSION: No acute intracranial process. No evidence of ventriculomegaly or mass effect. Since the 2020 MRI, interval development of bilateral occipital regions of encephalomalacia more pronounced on the right, suggestive of sequelae of remote ischemia. Other extensive white matter signal abnormalities with corresponding centrally distributed foci of susceptibility signal abnormality suggestive of remote micro hemorrhages, most compatible with sequelae of longstanding hypertensive encephalopathy. Conclusions/Impression: ESRD on iHD MWF -HD orders revised, UF goal increased, metab profile stable but K level low, dialyze with higher K bath AMS, multifactorial. Chronic ischemic changes on neuroimaging -Cont supportive care, treat potential UTI, other Labile BP, accelerated HTN -f/u post HD BP, ARB ordered this AM, CCB dose ordered this evening, target BP < 140/90 Dyslipidemia, mixed -Unclear if pt was taking statin at home, Amlodipine and Simvastatin have interactions, will switch to Atorvastatin at high dose given prior CVA Abnormal findings in urine, pyuria -Being treated as UTI POA by primary team Prashant Rousseau MD, MARIO
--- NOTE | 2023-02-04 13:03 | P.PN ---
Subjective Date of Service: 02/05/23 Chief Complaint: Altered mental status and ataxic gait. Subjective: No new changes, Improving Physical Examination - Vital Signs Temperature: 98.5 F Blood Pressure: 187/71 Pulse: 70 Respirations: 18 Pulse Ox (%): 98 - Physical Exam General: Alert HEENT: Atraumatic, Normocephalic Respiratory: Normal air movement Cardiovascular: Regular rate/rhythm, Normal S1 S2 Gastrointestinal: Soft and benign Musculoskeletal: No swelling - Studies Laboratory Data (last 24 hrs) 02/03/23 12:35: Sodium 140, Potassium 3.1 L, BUN 33 H, Creatinine 4.00 H, Glucose 134 H, Magnesium 1.9, Total Bilirubin 0.5, AST 24, ALT 36, Alkaline Phosphatase 96 Microbiology Data (last 24 hrs): 02/03/23 12:52 Nasopharnyx Influenza Type A Antigen Screen - Final 02/03/23 12:52 Nasopharnyx Influenza Type B Antigen Screen - Final Assessment And Plan - Plan - Plan --Acute metabolic encephalopathy. Patient is alert . Patients spouse indicated that patient is confused at baseline. MRI brain does not indicate any acute intracranial abnormality. Presently on aspirin. Neurology consulted for management recommendation. We will await further recommendations. awaiting echo report. --Delirium. Patient confused at baseline. Worsening confusion likely secondary to UTI. Continue supportive care. --UTI POA. Patient placed on antibiotics. Urine cultures pending. -- ESRD. on MWF dialysis schedule. Nephrology consulted. Further management per environmental epidemiologist. --DM2. BS monitoring with sliding scale insulin. --Nicotine dependence. Patient placed on nicotine patch. Patient unable to appreciate nicotine cessation education. -- History of CVA. Continue aspirin and statin. --Hypertension. Stable. Continue home medication --HLD. Continue statin. --Hypokalemia. Replete as needed. -- Anemia of chronic disease. H&H stable. We will continue to monitor hemoglobin and transfuse if less than 7.0. --DVT prophylaxis with heparin subQ. Physician Review: Patient Assessed, Agree with Above Assessment and Plan
[2023-02-04] MEDS: NEPRO SHAKE 237 ML CAN PO SCH (16:39)
[2023-02-04] MEDS: AMLODIPINE 10 MG TAB PO SCH (21:00)
[2023-02-04] MEDS: CEFTRIAXONE 1,000 MG in NA CHLORIDE 0.9% 50 ML IVPB SCH ×2 (21:00→21:19)
[2023-02-04] MEDS: ATORVASTATIN 80 MG TAB PO SCH (21:22)
--- NOTE | 2023-02-04 23:13 | CON ---
Reason For Consultation: Consultation called because of confusion and unsteady gait. History Of Present Illness: Ms. German is a 62-year-old patient with end-stage renal disease on hem odialysis, diabetes, hypertension, prior strokes, nicotine dependency who had worsening confusion and gait. The patient was in dialysis to start my evaluation. At baseline, she is confused and oriente d to person and usually place, but not to time and specificity such as the exact date. She did howev er answer my questions appropriately and identified objects immediately including a pen, watch, glass es, and was able to move extremities when instructed. Her imaging of the brain identified a remote b ilateral occipital strokes and extensive hyperintensities throughout the brain including the basal ga nglia and brainstem consistent with long-standing hypertensive ischemic events. The radiologist's te rm is hypertensive encephalopathy. Past Medical History: End-stage renal disease on hemodialysis, hypertension, diabetes mellitus, dysl ipidemia. Allergies: CODEINE, MORPHINE, PENICILLIN, ERYTHROMYCIN. Medications: Tylenol 650 every 6 hours, Norvasc 10 mg daily, aspirin 81 mg daily, Lipitor 80 mg at b edtime, Rocephin 1 g every 24 hours, Colace 100 mg twice daily, Nepro shake 237 mL daily, vitamin D 5 0,000 units weekly, heparin 5000 units with every hemodialysis, nicotine patch 1 patch daily, Cozaar 100 mg daily, tramadol 50 mg every 8 hours as needed. Past Surgical History: Breast reduction. Family History: Heart disease and hypertension in father. Social History: The patient smokes greater than 10 cigarettes daily. Denies alcohol or IV drug use. Review of Systems: Difficult to obtain a good review of systems, although the patient denied any recent fevers or chills , maybe mild myalgias, arthralgias. No rash, headache, weight change. Physical Examination: Vital Signs: Blood pressure systolic ranged from 102-187 diastolic from 57-71, pulse is 70-74, respi ratory rate 15-18, temperature 98.0, O2 saturation 97% on room air. Weight 126 pounds. Height 5 fee t 3 inches. BMI 22.3. General: Ms. German is resting in the rdenio, having hemodialysis. HEENT: She appears normocephalic, atraumatic. Sclerae anicteric. Oropharynx pink and moist. Neck: Supple. Chest: Clear. Heart: Regular. Extremities: Show no significant edema or cyanosis. Neurological: She appears somewhat partly sedated, but was able to appropriately answer questions an d asked to identify objects. She did so correctly. In terms of cranial nerves, no obvious focal def icits on face in terms of symmetry and responses. Sensation is difficult to fully assess for asymmet aldo and strength. She did not appear to have an asymmetry in terms of upper and lower extremity, bu t diffusely weak and unable to fully evaluate sensation, coordination, or gait. Laboratory Studies: White blood cell count 11.1, hemoglobin 10.8, platelets 179. INR 1.02. Supervisor Photoengraving aldo: Sodium 143, potassium 3.1, chloride 112, creatinine 4.15, glucose ranged from 80-136. Calcium 9.0. Magnesium 1.9. Triglycerides are 500, total cholesterol 248, LDL cholesterol 156, HDL 29. Th e cholesterol/HDL ratio is elevated to 8.55. Urinalysis: Given that the patient is on hemodialysis and has end-stage renal disease with little urine production, esterase 75, white blood cell count at 10 to 22, 2+ protein, 8.5 pH. COVID testing is negative. Assessment: Ms. German is a 62-year-old patient with multiple medical problems including hypertensi on, diabetes mellitus, end-stage renal disease on hemodialysis, and likely vascular dementia, as her MRI shows extensive areas of atrophy, likely related to hypertensive encephalopathy. She also has re mote bilateral occipital infarcts. Plan: Continue with aggressive management of significant dyslipidemia. Continue aspirin, Lipitor, a ntihypertensives, and hemodialysis. She may benefit from gait training with physical therapy and occ upational therapy along with cognitive therapy with speech. If possible, she may be evaluated for ad mission to the inpatient rehabilitation unit and the hospital fifth floor. LB/MODL Voice ID: [id number] Report ID: [id number]
[2023-02-05] MEDS: INSULIN -REGULAR HUMAN 50 UNIT/0.5 ML ML SQ SCH ×4 (07:30→21:00)
[2023-02-05] MEDS: HEPARIN 5000 UNIT/ML 1 ML VIAL SQ SCH ×2 (08:47→21:42)
[2023-02-05] MEDS: NICOTINE 21 MG/PAT TD SCH (08:47)
[2023-02-05] MEDS: AMLODIPINE 10 MG TAB PO SCH (08:48)
[2023-02-05] MEDS: LOSARTAN POTASSIUM 50 MG TABLET PO SCH (08:48)
[2023-02-05] MEDS: NEPRO SHAKE 237 ML CAN PO SCH (08:48)
[2023-02-05] MEDS: ASPIRIN 81 MG CHEWABLE TABLET PO SCH (08:48)
[2023-02-05] MEDS: DOCUSATE NA 100 MG CAP PO SCH ×2 (08:48→21:00)
--- NOTE | 2023-02-05 10:18 | P.PN ---
Date of Service: 02/05/23 Vital Signs Temp Pulse Resp BP Pulse Ox 97.3 F 63 16 129/58 L 97 02/05/23 08:00 02/05/23 08:00 02/05/23 08:00 02/05/23 08:00 02/05/23 08:00 Medications Acetaminophen (Acetaminophen 325 Mg Tablet) 650 mg PO Q6H PRN PRN Reason: TEMP > 100' F Amlodipine Besylate (Amlodipine 10 Mg Tab) 10 mg PO DAILY [facility] Last Admin: 02/05/23 08:48 Dose: 10 mg Aspirin (Aspirin 81 Mg Chewable Tablet) 81 mg PO DAILY [facility] Last Admin: 02/05/23 08:48 Dose: 81 mg Atorvastatin Calcium (Atorvastatin 80 Mg Tab) 80 mg PO BEDTIME [facility] Last Admin: 02/04/23 21:22 Dose: 80 mg Docusate Sodium (Docusate Na 100 Mg Cap) 100 mg PO BID [facility] Last Admin: 02/05/23 08:48 Dose: 100 mg Enteral Nutritional Formula (Nepro Shake 237 Ml Can) 237 ml PO DAILY [facility] Last Admin: 02/05/23 08:48 Dose: 237 ml Ergocalciferol (Drisdol (Vitamin D=Ergocalciferol) 46664 Unit Cap) 50,000 unit PO Q7D [facility] Last Admin: 02/04/23 11:36 Dose: 50,000 unit Glucagon (Glucagon 1 Mg/Vial) 1 mg IM 1X PRN PRN Reason: HYPOGLYCEMIA Heparin Sodium (Porcine) (Heparin 5000 Unit/Ml 1 Ml Vial) 5,000 unit SQ Q12HR [facility] Last Admin: 02/05/23 08:47 Dose: 5,000 unit Heparin Sodium (Porcine) (Heparin 1,000 Unit/Ml Vial) 6,000 unit IV EVERY HD PRN PRN Reason: AFTER EACH Heparin Sodium (Porcine) (Heparin 1,000 Unit/Ml Vial) 3,000 unit IV EVERY HD PRN PRN Reason: to prevent clotting Ceftriaxone Sodium 1,000 mg/ (Sodium Chloride) 50 mls @ 100 mls/hr IVPB Q24H [facility]; Protocol Last Admin: 02/04/23 21:00 Dose: Not Given Dextrose (Dextrose 10% Water Iv Soln.) 125 mls @ 0 mls/hr IV PRN PRN; Protocol PRN Reason: HYPOGLYCEMIA Insulin Human Regular (Insulin -Regular Human 50 Unit/0.5 Ml Ml) 0 unit SQ ACHS [facility]; Protocol Last Admin: 02/05/23 07:30 Dose: Not Given Losartan Potassium (Losartan Potassium 50 Mg Tablet) 100 mg PO DAILY [facility] Last Admin: 02/05/23 08:48 Dose: 100 mg Nicotine (Nicotine 21 Mg/Pat) 21 mg TD DAILY [facility] Last Admin: 02/05/23 08:47 Dose: 21 mg Ondansetron HCl (Ondansetron 4 Mg/2 Ml Vial) 4 mg IV Q6HP PRN PRN Reason: NAUSEA / VOMITING Sodium Chloride (Flush Normal Saline 10 Ml) 10 ml IV BID [facility] Last Admin: 02/05/23 08:49 Dose: 10 ml Tramadol HCl (Tramadol Hcl 50 Mg Tab) 50 mg PO TID PRN PRN Reason: Pain scale 8-10 (Severe) Microbiology Results 02/03/23 17:10 Clean Catch Urine [place] Count - Preliminary >100,000 CFU/ML. 02/03/23 17:10 Clean Catch Urine - Preliminary 02/03/23 13:00 Blood - Blood Aerobic Blood Culture - Preliminary No growth in 24 hours. 02/03/23 13:00 Blood - Blood Anaerobic Blood Culture - Preliminary No growth in 24 hours. 02/03/23 12:35 Blood - Blood Aerobic Blood Culture - Preliminary No growth in 24 hours. 02/03/23 12:35 Blood - Blood Anaerobic Blood Culture - Preliminary No growth in 24 hours. 02/03/23 12:52 Nasopharnyx Influenza Type A Antigen Screen - Final 02/03/23 12:52 Nasopharnyx Influenza Type B Antigen Screen - Final Assessment/ Plan: Nephrology No dyspnea No chest pain No acute events overnight Case reviewed with the at the bedside Physical Examination General: In no apparent distress, Cooperative HEENT: Atraumatic Neck: Supple Respiratory: Clear to auscultation bilaterally Cardiovascular: No edema, Regular rate/rhythm Gastrointestinal: Soft and benign, Non-distended Musculoskeletal: No clubbing, No contractures Integumentary: No rashes, No cyanosis Neurological: Normal speech, Dementia Laboratory Data (last 24 hrs) 02/03/23 12:35: PT 11.2, INR 1.02 02/03/23 12:35: WBC 11.50 H, Hgb 11.7 L, Hct 35.0 L, Plt Count 209 02/03/23 12:35: Sodium 140, Potassium 3.1 L, BUN 33 H, Creatinine 4.00 H, Glucose 134 H, Magnesium 1.9, Total Bilirubin 0.5, AST 24, ALT 36, Alkaline Phosphatase 96 Imagings Data: [id number] EXAM DESCRIPTION: RADChest Single View02/03/2023 12:58 pm CLINICAL HISTORY: COUGH COMPARISON: Chest Single View dated 07/08/2021; Chest Pa And Lat (2 Views) dated 02/14/2019; Chest Single View dated 07/24/2017 TECHNIQUE: Portable AP view of the chest. FINDINGS: The lungs are clear. No pneumothorax or effusion. The cardiomediastinal contours are unremarkable. IMPRESSION: No acute cardiopulmonary process. [address] EXAM DESCRIPTION: CT - Head Brain Wo Cont - 02/03/2023 12:28 pm CLINICAL HISTORY: Dizziness;Confused Headache, drowsiness COMPARISON: Head Brain Wo Cont dated 07/08/2021 TECHNIQUE: All CT scans are performed using dose optimization technique as appropriate and may include automated exposure control or mA/KV adjustment according to patient size. FINDINGS: No intracranial hemorrhage, hydrocephalus or extra-axial fluid collection.Moderate generalized brain atrophy is present with moderate perivent ricular and deep white matter chronic microvascular ischemic changes.There is an area of diminished density seen in the right occipital pole which has the appearance of subacute CVA. The paranasal sinuses and mastoids are clear. The calvarium is intact. IMPRESSION: Evidence of a 2-3 cm area of intermediate diminished density likely representing subacute CVA. No hemorrhage is seen. Recommend MRI of the brain for further stroke workup evaluation. [id number] EXAM DESCRIPTION: MRI - Brain Wo Cont - 02/03/2023 2:33 pm CLINICAL HISTORY: MENTAL STATUS CHANGE COMPARISON: Brain MRI 07/08/2021. Head CT of earlier the same day TECHNIQUE: Multiplanar multisequence MRI of the brain performed without IV contrast. FINDINGS: No evidence of acute infarct or other diffusion signal abnormality. No evidence of acute intracranial hemorrhage or abnormal extra-axial fluid collections. Moderate diffuse parenchymal volume loss. Ventricular caliber is stable. Midline structures are unremarkable. Regions of encephalomalacia with adjacent gliosis more extensive in the right more than left occipital lobe. These have developed since the 2020 MRI and are most suggestive of sequelae of remote ischemia. Stable confluent white matter signal abnormalities most pronounced in the periventricular white matter, as well as some areas extending to the juxta cortical bilateral frontal and parietal white matter. Interval improvement of extensive signal abnormalities involving the thalami, brainstem, and dentate nuclei, seen on the prior MRI. There are extensive punctate foci of susceptibility signal abnormality in the basal ganglia regions, as well as the brain stem, and to lesser extent in the very insular regions, with some scattered foci near the cortex and in the cerebellar hemispheres. The distribution is most suggestive of sequelae of longstanding hypertensive encephalopathy. No mass effect or midline shift. Major vascular flow voids are preserved. Patchy opacification of the left mastoid air cells. Paranasal sinuses are clear. A small Thornwaldt cyst is incidentally noted. IMPRESSION: No acute intracranial process. No evidence of ventriculomegaly or mass effect. Since the 2020 MRI, interval development of bilateral occipital regions of encephalomalacia more pronounced on the right, suggestive of sequelae of remote ischemia. Other extensive white matter signal abnormalities with corresponding centrally distributed foci of susceptibility signal abnormality suggestive of remote micro hemorrhages, most compatible with sequelae of longstanding hypertensive encephalopathy. Conclusions/Impression: ESRD on HD Proteinuria -HD TIW MWF Hypokalemia -Replete as ordered HTN with CKD/ CHF -Continue Amlodipine and Losartan Diastolic CHF, chronic -HD with UF DM II with CKD -RISS Anemia in CKD -Retacrit X1 CKD MBD -Continue Ergo Cigarette smoker -Continue Nicotine patch Toxic Metabolic Encephalopathy Acute GN Cystitis -Continue Rocephin -Follow up culture Vascular Dementia Decreased functional ability -Neurology following -PT as tolerated Case reviewed with Dr. Palmer
[2023-02-05] MEDS ORDERED: EPOETIN ALFA-EPBX 10,000 UNIT/ML VIAL SQ ONE (10:30)
--- NOTE | 2023-02-05 13:25 | P.PN ---
Subjective Date of Service: 02/05/23 Chief Complaint: Altered mental status and ataxic gait. Subjective: No new changes, Improving Physical Examination - Vital Signs Temperature: 98.5 F Blood Pressure: 187/71 Pulse: 70 Respirations: 18 Pulse Ox (%): 98 - Physical Exam General: Alert HEENT: Atraumatic, Normocephalic Neck: Supple Respiratory: Normal air movement Cardiovascular: Regular rate/rhythm, Normal S1 S2 Gastrointestinal: Soft and benign Musculoskeletal: No swelling Assessment And Plan - Plan - Plan --Acute metabolic encephalopathy. Patient is alert . Patients spouse indicated that patient is confused at baseline. MRI brain does not indicate any acute intracranial abnormality. Presently on aspirin. Neurology recommendation noted. We will awaiting echo report for final plan. --Delirium. Patient confused at baseline. Worsening confusion likely secondary to UTI. Continue supportive care. --UTI-POA. Patient placed on antibiotics. Urine cultures result with preliminary of GNR >100,000 CFU. -- ESRD. on MWF dialysis schedule. Nephrology consulted. Further management per senior research fellow. --DM2. BS monitoring with sliding scale insulin. --Nicotine dependence. Patient placed on nicotine patch. Patient unable to appreciate nicotine cessation education. -- History of CVA. Continue aspirin and statin. --Hypertension. Stable. Continue home medication --HLD. Continue statin. --Hypokalemia. Replete as needed. -- Anemia of chronic disease. H&H stable. We will continue to monitor hemoglobin and transfuse if less than 7.0. --DVT prophylaxis with heparin subQ. Physician Review: Patient Assessed, Agree with Above Assessment and Plan
[2023-02-05 16:13] LABS: Hepatitis B Core Ab, Total Nonreactive (Nonreactive); Hepatitis B surface AG Interp. Nonreactive (Nonreactive)
[2023-02-05] MEDS: ATORVASTATIN 80 MG TAB PO SCH (21:42)
[2023-02-05] MEDS: CEFTRIAXONE 1,000 MG in NA CHLORIDE 0.9% 50 ML IVPB SCH (21:42)
[2023-02-06 04:19] LABS: Absolute Lymphocytes (CBC) 4.5 K/uL (0.7-4.9); Hematocrit 36.7 % (36.0-45.0); Lymphocytes % 26.6 % (15.3-44.8); MCV 92.6 fL (80-100); MPV 9.1 fL (7.6-11.3); RBC Red Blood Cell Count 3.96 M/uL (3.86-4.86)
[2023-02-06 04:40] LABS: Albumin 3.5 g/dL (3.4-5.0); Bilirubin Total 0.3 mg/dL (0.2-1.0); Magnesium 1.8 mg/dL (1.6-2.4); Potassium 3.4 mEq/L (3.5-5.1); Protein, Total 7.1 g/dL (6.4-8.2)
[2023-02-06] MEDS: INSULIN -REGULAR HUMAN 50 UNIT/0.5 ML ML SQ SCH ×4 (07:30→20:53)
[2023-02-06] MEDS ORDERED: GLIMEPIRIDE 2 MG TABLET PO SCH (08:00)
[2023-02-06] MEDS: NICOTINE 21 MG/PAT TD SCH (08:57)
[2023-02-06] MEDS: DOCUSATE NA 100 MG CAP PO SCH ×2 (08:57→20:54)
[2023-02-06] MEDS: MULTIVITAMINS,THERAPEUT 1 TAB PO SCH (08:57)
[2023-02-06] MEDS: ASPIRIN 81 MG CHEWABLE TABLET PO SCH (08:57)
[2023-02-06] MEDS: HEPARIN 5000 UNIT/ML 1 ML VIAL SQ SCH ×2 (08:58→20:54)
[2023-02-06] MEDS: NEPRO SHAKE 237 ML CAN PO SCH (09:00)
[2023-02-06] MEDS ORDERED: HOME MED 1 EA UNK (Simvastatin [Simvastatin] 40 MG Tablet) PO SCH (09:00)
[2023-02-06] MEDS ORDERED: POTASSIUM CL SA 10 MEQ TAB PO ONE (09:00)
[2023-02-06] MEDS ORDERED: AMLODIPINE 10 MG TAB PO SCH (09:00)
[2023-02-06] MEDS ORDERED: HOME MED 1 EA UNK (Losartan Potassium [Losartan Potassium] 100 MG Tablet) PO SCH (09:00)
[2023-02-06] MEDS: AMLODIPINE 10 MG TAB PO SCH ×2 (09:00→10:32)
[2023-02-06] MEDS: LOSARTAN POTASSIUM 50 MG TABLET PO SCH ×2 (09:00→10:32)
[2023-02-06] MEDS ORDERED: MAGNESIUM SULFATE 1 gm IVPB 1 GM/100 ML BAG IV ONE (09:00)
--- NOTE | 2023-02-06 11:42 | P.PN ---
Nephrology note (S) Pt's condition overall stable or better, did work with PT briefly and was OOB and ambulating short distance from the bed to the door before tiring, she was able to feed herself today (O) Vitals reviewed in the EMR General: In no apparent distress, Cooperative HEENT: Atraumatic, sclera anicteric Neck: Supple Respiratory: Clear to auscultation bilaterally Cardiovascular: No edema, Regular rate/rhythm mostly Gastrointestinal: Soft, ND, NT Ext: Lt UE AVF, no LE edema Neurological: Awake, responds briefly, mostly monosyllables. No speech dysarthria. Generalized weakness Laboratory Data (last 24 hrs) Reviewed in the EMR [id number] EXAM DESCRIPTION: MRI - Brain Wo Cont - 02/03/2023 2:33 pm CLINICAL HISTORY: MENTAL STATUS CHANGE COMPARISON: Brain MRI 07/08/2021. Head CT of earlier the same day TECHNIQUE: Multiplanar multisequence MRI of the brain performed without IV contrast. FINDINGS: No evidence of acute infarct or other diffusion signal abnormality. No evidence of acute intracranial hemorrhage or abnormal extra-axial fluid collections. Moderate diffuse parenchymal volume loss. Ventricular caliber is stable. Midline structures are unremarkable. Regions of encephalomalacia with adjacent gliosis more extensive in the right more than left occipital lobe. These have developed since the 2020 MRI and are most suggestive of sequelae of remote ischemia. Stable confluent white matter signal abnormalities most pronounced in the periventricular white matter, as well as some areas extending to the juxta cortical bilateral frontal and parietal white matter. Interval improvement of extensive signal abnormalities involving the thalami, brainstem, and dentate nuclei, seen on the prior MRI. There are extensive punctate foci of susc eptibility signal abnormality in the basal ganglia regions, as well as the brain stem, and to lesser extent in the very insular regions, with some scattered foci near the cortex and in the cerebellar hemispheres. The distribution is most suggestive of sequelae of longstanding hypertensive encephalopathy. No mass effect or midline shift. Major vascular flow voids are preserved. Patchy opacification of the left mastoid air cells. Paranasal sinuses are clear. A small Thornwaldt cyst is incidentally noted. IMPRESSION: No acute intracranial process. No evidence of ventriculomegaly or mass effect. Since the 2020 MRI, interval development of bilateral occipital regions of encephalomalacia more pronounced on the right, suggestive of sequelae of remote ischemia. Other extensive white matter signal abnormalities with corresponding centrally distributed foci of susceptibility signal abnormality suggestive of remote micro hemorrhages, most compatible with sequelae of longstanding hypertensive encephalopathy. Conclusions/Impression: ESRD on iHD MWF -HD today, will address azotemia with HD. K level < 3.5, will dialyze with higher K bath AMS, multifactorial. Chronic ischemic changes on neuroimaging, vascular dementia likely -Cont supportive care, overall condition returning to pt's baseline. D/c sulfonylrea, BG have not been elevated and pt at risk for hypoglycemia with this agent Labile BP, accelerated HTN -f/u post HD BP, home ARB and CCB meds resumed, will ask staff to check BP on the Rt upper arm and not the LE, target BP < 140/90 Dyslipidemia, mixed -Unclear if pt was taking statin at home, Amlodipine and Simvastatin have interactions, did switch to Atorvastatin at high dose given prior CVA Abnormal findings in urine, pyuria -Complete course for ecoli UTI Prashant Rousseau MD, [facility]
--- NOTE | 2023-02-06 11:44 | ECHO ---
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 CEREBRAL VASCULAR ACCIDENT CARDIAC HISTORY: CATHERIZATION: NO SURGERY: NO PROSTHETIC VALVE: NO PACEMAKER: NO MEASUREMENTS (cm) DIASTOLIC (NORMALS) SYSTOLIC (NORMALS) IVSd 1.1 (0.6-1.2) LA Diam 2.7 (1.9-4.0) LVEF 55% LVIDd 3.6 (3.5-5.7) LVIDs 2.6 (2.0-3.5) %FS 28% LVPWd 1.1 (0.6-1.2) Ao Diam 2.0 (2.0-3.7) 2 DIMENSIONAL ASSESSMENT: RIGHT ATRIUM: NORMAL LEFT ATRIUM: NORMAL RIGHT VENTRICLE: NORMAL LEFT VENTRICLE: NORMAL TRICUSPID VALVE: NORMAL MITRAL VALVE: NORMAL PULMONIC VALVE: NORMAL AORTIC VALVE: NORMAL PERICARDIAL EFFUSION: NONE AORTIC ROOT: NORMAL LEFT VENTRICULAR WALL MOTION: NORMAL EJECTION FRACTION. DECREASED LEFT VENTRICULAR COMPLIANCE. DOPPLER/COLOR FLOW: DECREASED LEFT VENTRICULAR COMPLIANCE COMMENTS: 1. DIASTOLIC DYSFUNCTION 2. NO THOMBUS 3. NO VEGETATION TECHNOLOGIST: MATTHEW NIETO
[2023-02-06] MEDS: CEFTRIAXONE 1,000 MG in NA CHLORIDE 0.9% 50 ML IVPB SCH (20:53)
[2023-02-06] MEDS: ATORVASTATIN 80 MG TAB PO SCH (20:53)
--- NOTE | 2023-02-06 23:14 | P.PN ---
Subjective Date of Service: 02/06/23 Subjective: Improving Review of Systems 10-point ROS is otherwise unremarkable Physical Examination - Vital Signs Temperature: 97.6 F Blood Pressure: 178/77 Pulse: 72 Respirations: 14 Pulse Ox (%): 98 - Physical Exam General: Alert, In no apparent distress HEENT: Atraumatic, PERRLA, EOMI Neck: Supple, JVD not distended Respiratory: Clear to auscultation bilaterally, Normal air movement Cardiovascular: Regular rate/rhythm, Normal S1 S2 Gastrointestinal: Normal bowel sounds, No tenderness Musculoskeletal: No tenderness Integumentary: No rashes Neurological: Normal speech, Normal tone, Normal affect Lymphatics: No axilla or inguinal lymphadenopathy - Studies Microbiology Data (last 24 hrs): 02/03/23 17:10 Clean Catch Urine [place] Count - Final >100,000 CFU/ML. 02/03/23 17:10 Clean Catch Urine - Final Escherichia Coli Medications List Reviewed: Yes Assessment & Plan - Problems (Diagnosis) (1) ESRD (end stage renal disease) Current Visit: Yes Status: Acute (2) Generalized weakness Current Visit: Yes Status: Acute (3) Malignant hypertension Current Visit: No Status: Acute (4) Uncontrolled diabetes mellitus Current Visit: No Status: Acute - Advance Directives Does patient have a Living Will: No Does patient have a Durable POA for Healthcare: No Physician Review: Patient Assessed, Agree with Above Assessment and Plan
[2023-02-07] MEDS: INSULIN -REGULAR HUMAN 50 UNIT/0.5 ML ML SQ SCH ×2 (07:30→11:30)
[2023-02-07 08:05] LABS: Absolute Lymphocytes (CBC) 4.2 K/uL (0.7-4.9); Hematocrit 38.5 % (36.0-45.0); Lymphocytes % 24.4 % (15.3-44.8); MCV 92.4 fL (80-100); MPV 8.8 fL (7.6-11.3); RBC Red Blood Cell Count 4.17 M/uL (3.86-4.86)
[2023-02-07 08:49] LABS: Albumin 3.5 g/dL (3.4-5.0); Bilirubin Total 0.3 mg/dL (0.2-1.0); C-Reactive Protein 6.95 mg/L (<3.00); Magnesium 2.1 mg/dL (1.6-2.4); Phosphorus 3.4 mg/dL (2.5-4.9); Protein, Total 7.1 g/dL (6.4-8.2); Thyroid Stimulating Hormone 2.74 uIU/mL (0.358-3.740)
[2023-02-07] MEDS: NEPRO SHAKE 237 ML CAN PO SCH (09:00)
[2023-02-07 09:18] VITALS: BP 134/79
[2023-02-07 11:19] VITALS: O2SAT 99
[2023-02-07] MEDS: HEPARIN 5000 UNIT/ML 1 ML VIAL SQ SCH (12:10)
[2023-02-07] MEDS: NICOTINE 21 MG/PAT TD SCH (12:10)
[2023-02-07] MEDS: MULTIVITAMINS,THERAPEUT 1 TAB PO SCH (12:10)
[2023-02-07] MEDS: DOCUSATE NA 100 MG CAP PO SCH (12:10)
[2023-02-07] MEDS: ASPIRIN 81 MG CHEWABLE TABLET PO SCH (12:11)
[2023-02-07] MEDS: LOSARTAN POTASSIUM 50 MG TABLET PO SCH (12:13)
[2023-02-07] MEDS: AMLODIPINE 10 MG TAB PO SCH (12:14)
[2023-02-07 12:41] VITALS: TEMP 97.5
--- NOTE | 2023-02-07 15:59 | P.PN ---
Date of Service: 02/07/23 Vital Signs Temp Pulse Resp BP Pulse Ox 97.5 F 83 16 134/79 99 02/07/23 12:00 02/07/23 12:14 02/07/23 12:00 02/07/23 12:14 02/07/23 12:00 Microbiology Results 02/03/23 17:10 Clean Catch Urine [place] Count - Final >100,000 CFU/ML. 02/03/23 17:10 Clean Catch Urine - Final Escherichia Coli 02/03/23 13:00 Blood - Blood Aerobic Blood Culture - Preliminary No growth in 24 hours. 02/03/23 13:00 Blood - Blood Anaerobic Blood Culture - Preliminary No growth in 24 hours. 02/03/23 12:35 Blood - Blood Aerobic Blood Culture - Preliminary No growth in 24 hours. 02/03/23 12:35 Blood - Blood Anaerobic Blood Culture - Preliminary No growth in 24 hours. 02/03/23 12:52 Nasopharnyx Influenza Type A Antigen Screen - Final 02/03/23 12:52 Nasopharnyx Influenza Type B Antigen Screen - Final Assessment/ Plan: Nephrology No dyspnea No chest pain No acute events overnight Case reviewed with the at the bedside Physical Examination General: In no apparent distress, Cooperative HEENT: Atraumatic Neck: Supple Respiratory: Clear to auscultation bilaterally Cardiovascular: No edema, Regular rate/rhythm Gastrointestinal: Soft and benign, Non-distended Musculoskeletal: No clubbing, No contractures Integumentary: No rashes, No cyanosis Neurological: Normal speech, Dementia Laboratory Data (last 24 hrs) 02/03/23 12:35: PT 11.2, INR 1.02 02/03/23 12:35: WBC 11.50 H, Hgb 11.7 L, Hct 35.0 L, Plt Count 209 02/03/23 12:35: Sodium 140, Potassium 3.1 L, BUN 33 H, Creatinine 4.00 H, Glucose 134 H, Magnesium 1.9, Total Bilirubin 0.5, AST 24, ALT 36, Alkaline Phosphatase 96 Imagings Data: [id number] EXAM DESCRIPTION: RADChest Single View02/03/2023 12:58 pm CLINICAL HISTORY: COUGH COMPARISON: Chest Single View dated 07/08/2021; Chest Pa And Lat (2 Views) dated 02/14/2019; Chest Single View dated 07/24/2017 TECHNIQUE: Portable AP view of the chest. FINDINGS: The lungs are clear. No pneumothorax or effusion. The cardiomediastinal contours are unremarkable. IMPRESSION: No acute cardiopulmonary process. [id number] EXAM DESCRIPTION: CT - Head Brain Wo Cont - 02/03/2023 12:28 pm CLINICAL HISTORY: Dizziness;Confused Headache, drowsiness COMPARISON: Head Brain Wo Cont dated 07/08/2021 TECHNIQUE: All CT scans are performed using dose optimization technique as appropriate and may include automated exposure control or mA/KV adjustment according to patient size. FINDINGS: No intracranial hemorrhage, hydrocephalus or extra-axial fluid collection.Moderate generalized brain atrophy is present with moderate periventricular and deep white matter chronic microvascular ischemic changes.There is an area of diminished density seen in the right occipital pole which has the appearance of subacute CVA. The paranasal sinuses and mastoids are clear. The calvarium is intact. IMPRESSION: Evidence of a 2-3 cm area of intermediate diminished density likely representing subacute CVA. No hemorrhage is seen. Recommend MRI of the brain for further stroke workup evaluation. [id number] EXAM DESCRIPTION: MRI - Brain Wo Cont - 02/03/2023 2:33 pm CLINICAL HISTORY: MENTAL STATUS CHANGE COMPARISON: Brain MRI 07/08/2021. Head CT of earlier the same day TECHNIQUE: Multiplanar multisequence MRI of the brain performed without IV contrast. FINDINGS: No evidence of acute infarct or other diffusion signal abnormality. No evidence of acute intracranial hemorrhage or abnormal extra-axial fluid collections. Moderate diffuse parenchymal volume loss. Ventricular caliber is stable. Midline structures are unremarkable. Regions of encephalomalacia with adjacent gliosis more extensive in the right more than left occipital lobe. These have developed since the 2020 MRI and are most suggestive of sequelae of remote ischemia. Stable confluent white matter signal abnormalities most pronounced in the periventricular white matter, as well as some areas extending to the juxta cortical bilateral frontal and parietal white matter. Interval improvement of extensive signal abnormalities involving the thalami, brainstem, and dentate nuclei, seen on the prior MRI. There are extensive punctate foci of susceptibility signal abnormality in the basal ganglia regions, as well as the brain stem, and to lesser extent in the very insular regions, with some scattered foci near the cortex and in the cerebellar hemispheres. The distribution is most suggestive of sequelae of longstanding hypertensive encephalopathy. No mass effect or midline shift. Major vascular flow voids are preserved. Patchy opacification of the left mastoid air cells. Paranasal sinuses are clear. A small Thornwaldt cyst is incidentally noted. IMPRESSION: No acute intracranial process. No evidence of ventriculomegaly or mass effect. Since the 2020 MRI, interval development of bilateral occipital regions of encephalomalacia more pronounced on the right, suggestive of sequelae of remote ischemia. Other extensive white matter signal abnormalities with corresponding centrally distributed foci of susceptibility signal abnormality suggestive of remote micro hemorrhages, most compatible with sequelae of longstanding hypertensive encephalopathy. Conclusions/Impression: ESRD on HD Proteinuria -HD TIW MWF Hypokalemia -Replete as ordered HTN with CKD/ CHF -Continue Amlodipine and Losartan Diastolic CHF, chronic -HD with UF DM II with CKD -RISS Anemia in CKD -Retacrit PRN CKD MBD -Continue Ergo Cigarette smoker -Continue Nicotine patch Toxic Metabolic Encephalopathy Acute E.coli Cystitis -Continue Abx Vascular Dementia Decreased functional ability -Neurology following -PT as tolerated Case reviewed with hospitalist team
== END 2023-02-07 14:44 | disposition home or self-care (01) | DRG 689 ==
LOC: ER 11:59 → ERHOLD 17:17 → 4TH 19:35
PROVIDERS: ADMIT Internal Medicine Nephrology; ATTEND Hospitalist
PROC: 5A1D70Z Performance of Urinary Filtration, Intermittent, Less than 6 Hours Per Day (ICD-10-PCS; principal; 2023-02-03)
DX: N30.00 Acute cystitis without hematuria (principal); G92.8 Other toxic encephalopathy; N18.6 End stage renal disease; F05 Delirium due to known physiological condition; I50.32 Chronic diastolic (congestive) heart failure; I13.2 Hypertensive heart and chronic kidney disease with heart failure and with stage 5 chronic kidney disease, or end stage renal disease; E11.22 Type 2 diabetes mellitus with diabetic chronic kidney disease; D63.1 Anemia in chronic kidney disease; E78.2 Mixed hyperlipidemia; E87.6 Hypokalemia; F01.50 Vascular dementia, unspecified severity, without behavioral disturbance, psychotic disturbance, mood disturbance, and anxiety; F17.210 Nicotine dependence, cigarettes, uncomplicated; B96.20 Unspecified Escherichia coli [E. coli] as the cause of diseases classified elsewhere; R26.0 Ataxic gait; Z99.2 Dependence on renal dialysis; Z88.5 Allergy status to narcotic agent; Z88.1 Allergy status to other antibiotic agents; Z88.0 Allergy status to penicillin; Z79.82 Long term (current) use of aspirin; Z86.73 Personal history of transient ischemic attack (TIA), and cerebral infarction without residual deficits; Z79.84 Long term (current) use of oral hypoglycemic drugs; Z79.899 Other long term (current) drug therapy
CPT/HCPCS: 36415; 51702; 70450; 70551; 71045; 80048; 80053; 80061; 80076; 81001; 82533; 82607; 82947; 83036; 83540; 83605; 83615; 83735; 83880; 84100; 84132; 84439; 84443; 84484; 85025; 85610; 86140; 86704; 87040; 87077; 87086; 87088; 87186; 87340; 87804; 87811; 90935; 93005; 93306; 96361; 96365; 96367; 96368; 97110; 97112; 97116; 97161; 97165; 97530; 99285; J0696; J1644; J3411; J3475; J7030; Q5106

== ENCOUNTER 2023-08-21 14:04 | Emergency (ER) | payer OTHER ==
[2023-08-21 15:19] LABS: Absolute Lymphocytes (CBC) 2.1 K/uL (0.7-4.9); Hematocrit 33.8 % (36.0-45.0); MCV 90.8 fL (80-100); MPV 8.5 fL (7.6-11.3); Platelets 154 thou/uL (152-406); RBC Red Blood Cell Count 3.72 M/uL (3.86-4.86)
[2023-08-21] MEDS ORDERED: HYDRALAZINE HCL 20 MG/ML VIAL ONE ×2 (15:27→16:23)
[2023-08-21 15:41] LABS: ALT/SGPT 19 U/L (13-56); AST/SGOT 9 U/L (15-37); Albumin 3.4 g/dL (3.4-5.0); Alkaline Phosphatase 103 U/L (45-117); BUN Blood Urea Nitrogen 15 mg/dL (7-18); Bicarbonate 30 mEq/L (21-32); Bilirubin Total 0.3 mg/dL (0.2-1.0); Glomerular Filtration Rate 30 ml/min (=/>90); Glucose Level 90 mg/dL (74-106); NT PRO-BNP 9355 pg/mL (<125); Potassium 3.4 mEq/L (3.5-5.1); Protein, Total 7.1 g/dL (6.4-8.2); Sodium Level 140 mEq/L (136-145); Troponin High Sensitivity 22.8 pg/mL (<58.9)
[2023-08-21 15:58] LABS: Bilirubin Direct < 0.1 mg/dL (0-0.2)
[2023-08-21 15:59] LABS: Bilirubin Indirect, Calculated ND mg/dL (0.2-0.8)
--- NOTE | 2023-08-21 16:23 | ER ---
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 Coronavirus screen: At this time, the client does not indicate any symptoms associated with coronavirus-19. Ebola Screen: No symptoms or risks identified at this time. Initial Sepsis Screen: Does the patient meet any 2 criteria? No. Patient's initial sepsis screen is negative. Does the patient have a suspected source of infection? No. Patient's initial sepsis screen is negative. Risk Assessment: Do you want to hurt yourself or someone else? Patient reports no desire to harm self or others. Onset of symptoms was August 21, 2023. 14:28 Method Of Arrival: Wheelchair hb 14:28 Acuity: RAFI 3 hb Historical: - Allergies: 14:30 Codeine; hb 14:30 Erythromycin; hb 14:30 Morphine; hb 14:30 PENICILLINS; hb - PMHx: 14:30 CVA; DIALYSIS MWF; Diabetes - NIDDM; Hypertension; kidney disease; hb - Immunization history:: Adult Immunizations up to date. - Social history:: Smoking status: Patient/guardian denies using tobacco, Stopped _ months ago 6. Screenin:11 [facility] ED Fall Risk Assessment (Adult) Score/Fall Risk Level 0 - 2 = Low Risk. Abuse iw screen: Denies threats or abuse. Denies injuries from another. Nutritional screening: No deficits noted. Tuberculosis screening: No symptoms or risk factors identified. Assessment: 15:10 General: Appears in no apparent distress. Behavior is calm, cooperative. Pain: Denies iw pain. Neuro: Level of Consciousness is awake, alert, obeys commands, Oriented to person, place. Vital Signs: 14:28 BP 215 / 94; Pulse 62; Resp 16; Temp 97.3(TE); Pulse Ox 99% on R/A; Weight 54.43 kg; hb Height 5 ft. 0 in. ; Pain 0/10; 14:52 BP 238 / 79; Pulse 55; Resp 18; Pulse Ox 99% ; kd3 15:26 BP 187 / 72; Pulse 54; Resp 18; Pulse Ox 100% on R/A; kd3 15:45 BP 216 / 62; Pulse 57; Resp 18; Pulse Ox 99% on R/A; kd3 16:13 BP 223 / 59; Pulse 73; Resp 18; Pulse Ox 100% on R/A; kd3 16:20 BP 190 / 95; Pulse 61; Resp 18; Pulse Ox 100% on R/A; kd3 14:28 Body Mass Index 23.44 (54.43 kg, 152.4 cm) hb 14:28 Pain Scale: Adult hb ED Course: 14:07 Patient arrived in ED. im 14:29 Tiana Hernandez MD is Attending Physician. sp3 14:30 Triage completed. hb 14:30 Arm band placed on. hb 14:56 Brittney Martin, RN is Primary Nurse. kd3 15:00 Patient has correct armband on for positive identification. Provided Education on: . iw 15:10 Inserted saline lock: 22 gauge in right antecubital area, using aseptic technique. iw Blood collected. 15:26 Basic Metabolic Panel Sent. kd3 15:26 LFT's Sent. kd3 15:26 NT PRO-BNP Sent. kd3 15:26 Troponin HS Sent. kd3 16:46 No provider procedures requiring assistance completed. IV discontinued, intact, hb bleeding controlled, No redness/swelling at site. Administered Medications: 15:25 Drug: hydrALAZINE IVP 10 mg IVP once Route: IVP; Site: right antecubital; kd3 16:07 Not Given (Duplicate Order): [id number] mg IVP once iw 16:12 Drug: hydrALAZINE IVP 10 mg IVP once Route: IVP; Site: right antecubital; kd3 Medication: 16:47 VIS not applicable for this client. hb Outcome: 16:23 Discharge ordered by . sp3 16:46 Discharged to home via wheelchair, with significant other, hb 16:46 Condition: stable 16:46 Discharge instructions given to patient, significant other, Instructed on discharge instructions, follow up and referral plans. Demonstrated understanding of instructions, follow-up care, 16:47 Patient left the ED. hb Signatures: Niki Ly RN RN Natalee Hammer RN RN Tiana Hernandez MD MD sp3 Brittney Martin, BELLA RN kd3 Kacie Delaney
--- NOTE | 2023-08-21 16:23 | EDPHYS ---
Physician Documentation [facility] Name: Nicolasa German Age: 63 yrs Sex: Female : 1960 Arrival Date: 08/21/2023 Time: 14:04 Bed 4 Private MD: ED Physician Tiana Hernandez HPI: 08/21 15:48 This 63 yrs old Female presents to ER via Wheelchair with complaints of High Blood sp3 Pressure. 15:48 63-year-old female with history of diabetes, prior CVA, dialysis Thursday sp3 Thursday, diabetes, hypertension presents to the ED referred from dialysis for hypertensive urgency with blood pressure in the 230s systolic without symptoms. Patient denies headache, chest pain, shortness of breath, neck pain, URI symptoms, fever, abdominal pain, nausea, vomiting, diarrhea, syncope, near syncope, rash, memory loss, visual changes, or any other signs or symptoms on ROS at this time.. Historical: - Allergies: 14:30 Codeine; hb 14:30 Erythromycin; hb 14:30 Morphine; hb 14:30 PENICILLINS; hb - PMHx: 14:30 CVA; DIALYSIS MWF; Diabetes - NIDDM; Hypertension; kidney disease; hb - Immunization history:: Adult Immunizations up to date. - Social history:: Smoking status: Patient/guardian denies using tobacco, Stopped _ months ago 6. ROS: 15:51 Constitutional: Negative for fever, chills, and weight loss, Eyes: Negative for injury, sp3 pain, redness, and discharge, ENT: Negative for injury, pain, and discharge, Neck: Negative for injury, pain, and swelling, Respiratory: Negative for shortness of breath, cough, wheezing, and pleuritic chest pain, Abdomen/GI: Negative for abdominal pain, nausea, vomiting, diarrhea, and constipation, Back: Negative for injury and pain, MS/Extremity: Negative for injury and deformity, Skin: Negative for injury, rash, and discoloration, 15:51 All other systems are negative, Exam: 15:51 Constitutional: This is a well developed, well nourished patient who is awake, alert, sp3 and in no acute distress. Head/Face: Normocephalic, atraumatic. Eyes: Pupils equal round and reactive to light, extra-ocular motions intact. Lids and lashes normal. Conjunctiva and sclera are non-icteric and not injected. Cornea within normal limits. Periorbital areas with no swelling, redness, or edema. ENT: Nares patent. No nasal discharge, no septal abnormalities noted. External auditory canals are clear. Oropharynx with no redness, swelling, or masses, exudates, or evidence of obstruction, uvula midline. Mucous membranes moist. Neck: Trachea midline, no thyromegaly or masses palpated, and no cervical lymphadenopathy. Supple, full range of motion without nuchal rigidity, or vertebral point tenderness. No Meningismus. Chest/axilla: Normal chest wall appearance and motion. Nontender with no deformity. No lesions are appreciated. Cardiovascular: Regular rate and rhythm with a normal S1 and S2. No gallops, murmurs, or rubs. Normal PMI, no JVD. No pulse deficits. Respiratory: Lungs have equal breath sounds bilaterally, clear to auscultation and percussion. No rales, rhonchi or wheezes noted. No increased work of breathing, no retractions or nasal flaring. Abdomen/GI: Soft, non-tender, with normal bowel sounds. No distension or tympany. No guarding or rebound. No evidence of tenderness throughout. Back: No spinal tenderness. No costovertebral tenderness. Full range of motion. Skin: Warm, dry with normal turgor. Normal color with no rashes, no lesions, and no evidence of cellulitis. MS/ Extremity: Pulses equal, no cyanosis. Neurovascular intact. Full, normal range of motion. Psych: Awake, alert, with orientation to person, place and time. Behavior, mood, and affect are within normal limits. 15:51 Neuro: Baseline neurological deficits and inability to walk. No new neurological findings noted. Patient is alert and oriented x 4., 16:02 ECG was reviewed by the Attending Physician. EKG demonstrates sinus bradycardia 54 bpm sp3 with normal intervals, normal QRS, nonspecific diffuse axis ST segments without evidence of acute ischemia. Vital Signs: 14:28 BP 215 / 94; Pulse 62; Resp 16; Temp 97.3(TE); Pulse Ox 99% on R/A; Weight 54.43 kg; hb Height 5 ft. 0 in. ; Pain 0/10; 14:52 BP 238 / 79; Pulse 55; Resp 18; Pulse Ox 99% ; kd3 15:26 BP 187 / 72; Pulse 54; Resp 18; Pulse Ox 100% on R/A; kd3 15:45 BP 216 / 62; Pulse 57; Resp 18; Pulse Ox 99% on R/A; kd3 16:13 BP 223 / 59; Pulse 73; Resp 18; Pulse Ox 100% on R/A; kd3 16:20 BP 190 / 95; Pulse 61; Resp 18; Pulse Ox 100% on R/A; kd3 14:28 Body Mass Index 23.44 (54.43 kg, 152.4 cm) hb 14:28 Pain Scale: Adult hb MDM: 14:36 Patient medically screened. sp3 15:51 Data reviewed: vital signs, nurses notes, old medical records, lab test result(s), EKG, sp3 radiologic studies. ED course: 63-year-old female with end-stage renal disease and hypertension with PMH above now with hypertensive urgency without symptoms. Blood pressure is 216/62 on arrival. Hydralazine 10 mg IV will be given given heart rate is in the low 60s. If workup is negative, we will safely discharge patient home with PCP follow-up for potential change in medications. Instructed to start blood pressure log 3 times a day to assist in the process.. 16:22 ED course: Blood pressure down to 190 systolic. Laboratory values reviewed and are sp3 within normal limits negative troponin and creatinine at 1.8 below baseline. Patient continues to not have a headache. Would simply discharge patient home with follow-up with PCP as needed. Patient has hydralazine p.o. for rescue blood pressure relief if needed.. 08/21 14:35 Order name: Basic Metabolic Panel; Complete Time: 15:59 sp3 08/21 14:35 Order name: CBC with Diff; Complete Time: 15:59 sp3 08/21 14:35 Order name: LFT's; Complete Time: 15:59 sp3 08/21 14:35 Order name: NT PRO-BNP; Complete Time: 15:59 sp3 08/21 14:35 Order name: Troponin HS; Complete Time: 15:59 sp3 08/21 14:35 Order name: EKG; Complete Time: 14:36 sp3 08/21 14:35 Order name: Cardiac monitoring; Complete Time: 15:26 sp3 08/21 14:35 Order name: EKG - Nurse/Tech; Complete Time: 15:26 sp3 08/21 14:35 Order name: IV Saline Lock; Complete Time: 15:19 sp3 08/21 14:35 Order name: Labs collected and sent; Complete Time: 15:20 sp3 08/21 14:35 Order name: O2 Sat Monitoring; Complete Time: 15:26 sp3 Administered Medications: 15:25 Drug: hydrALAZINE IVP 10 mg IVP once Route: IVP; Site: right antecubital; kd3 16:07 Not Given (Duplicate Order): [id number] mg IVP once iw 16:12 Drug: hydrALAZINE IVP 10 mg IVP once Route: IVP; Site: right antecubital; kd3 Disposition Summary: 08/21/23 16:23 Discharge Ordered Notes: Location: Home sp3 Condition: Stable sp3 Diagnosis - Hypertensive urgency sp3 Followup: sp3 - With: Private Physician - When: Upon discharge from the Emergency Department - Reason: Continuance of care Discharge Instructions: - Discharge Summary Sheet sp3 - Hypertension, Adult sp3 Forms: - Medication Reconciliation Form sp3 - Thank You Letter sp3 - Antibiotic Education sp3 - Prescription Opioid Use sp3 - Patient Portal Instructions sp3 - Leadership Thank You Letter sp3 Signatures: Dispatcher [employer] Niki Santos, RN Natalee Torres RN Tiana Tabor MD MD sp3 Brittney Martin RN RN kd3
[2023-08-21 17:01] VITALS: TEMP 97.3
[2023-08-21 17:14] VITALS: O2SAT 100
[2023-08-21 17:15] VITALS: BP 190/95
--- NOTE | 2023-08-25 13:57 | EKG ---
Test Date: 2023-08-21 Test Time: 15:17:06 Acid Bleacher: LISSETTE MEASUREMENT RESULTS: Intervals: Rate: 54 UT: 162 QRSD: 84 QT: 502 QTc: 476 [place]: P: 68 UT: 162 QRS: 88 T: 99 INTERPRETIVE STATEMENTS: Sinus bradycardia Anteroseptal infarct, age undetermined Abnormal ECG Compared to ECG 02/03/2023 12:45:36 Myocardial infarct finding now present Sinus rhythm no longer present Left posterior fascicular block no longer present T-wave abnormality no longer present Possible ischemia no longer present Electronically Signed On 08-25-23 13:43:34 [employer] by Ish Esquivel
== END 2023-08-21 16:47 | disposition home or self-care (01) ==
LOC: ER 14:04
DX: I16.0 Hypertensive urgency (principal); E11.22 Type 2 diabetes mellitus with diabetic chronic kidney disease; N18.6 End stage renal disease; Z99.2 Dependence on renal dialysis; Z86.73 Personal history of transient ischemic attack (TIA), and cerebral infarction without residual deficits; Z88.0 Allergy status to penicillin; Z88.1 Allergy status to other antibiotic agents; Z88.3 Allergy status to other anti-infective agents; Z88.5 Allergy status to narcotic agent
CPT/HCPCS: 93005; 85025; 80048; 36415; 80076; 84484; 83880; 96374; 99284; J0360 ×2

== ENCOUNTER 2024-04-21 22:06 | Inpatient (IN) | payer OTHER ==
[~2024-04-21 22:06] MED LIST: ATROPINE SULF 1 MG/10 ML SYR IV ONE; Calcium Chloride 10% INJ SYR IV ONE; EPINEPHrine 1 MG/10 ML SYR ONE; ETOMIDATE 20 MG/10 ML VIAL IV ONE; ROCURONIUM 50 MG/5 ML VIAL IV ONE; SODIUM CHL 0.9% 1000 ML BAG ONE
[2024-04-21] MEDS ORDERED: NA CHLORIDE 0.9% 1,000 ML ONE (22:48)
[2024-04-21] MEDS ORDERED: NOREPINEPHRINE BITARTRATE/D5W 4 MG/250 ML KIT IV ONE (22:58)
[2024-04-21 22:59] LABS: Absolute Lymphocytes (CBC) 1.9 K/uL (0.7-4.9); Absolute Monocytes 0.3 K/uL (0.1-1.3); Absolute Neutrophil 9.5 K/uL (1.8-8.0); Basophils % 0.4 % (0-1.3); Eosinophils % 0.1 % (0-4.4); Hematocrit 33.3 % (36.0-45.0); Hemoglobin 10.9 g/dL (12.0-15.0); Lymphocytes % 16.4 % (15.3-44.8); MCH 30.7 pg (27.0-35.0); MCHC 32.7 g/dL (32.0-36.0); MCV 93.8 fL (80-100); MPV 10.3 fL (7.6-11.3); Monocytes % 2.5 % (3.3-12.3); Neutrophils % 80.6 % (41.7-73.7); Nucleated Red Blood Cells % 0.1 % (0-0); Platelets 98 thou/uL (152-406); RBC Red Blood Cell Count 3.55 M/uL (3.86-4.86); Red Cell Distribution Width 14.4 % (12.1-15.2)
[2024-04-21 23:05] LABS: PTT, Activated Partial Thromb 26.9 SECONDS (24.3-36.9); Protime INR 0.98
[2024-04-21] MEDS ORDERED: EPINEPHRINE 1 MG/ML VIAL ONE ×2 (23:18→23:19)
[2024-04-21] MEDS ORDERED: D5W 250 ML IV ONE (23:19)
[2024-04-21] MEDS ORDERED: propofoL 1,000 MG/100 ML VIAL IV ONE (23:32)
[2024-04-21] MEDS ORDERED: NA CHLORIDE 0.9% 250 ML ONE (23:38)
[2024-04-21] MEDS ORDERED: CEFTRIAXONE 1000 MG/VIAL ONE (23:46)
[2024-04-22] MEDS ORDERED: NOREPINEPHRINE BITARTRATE/D5W 4 MG/250 ML KIT IV ONE ×3 (00:03→06:30)
[2024-04-22] MEDS ORDERED: D5W 0 ML IV ONE (00:04)
[2024-04-22 00:08] LABS: ALT/SGPT 31 U/L (13-56); AST/SGOT 206 U/L (15-37); Albumin 2.7 g/dL (3.4-5.0); Albumin/Globulin Ratio 0.8 (1.1-1.8); Alkaline Phosphatase 76 U/L (45-117); Anion Gap 24.4 mEq/L (5.0-15.0); BUN Blood Urea Nitrogen 47 mg/dL (7-18); Bicarbonate 16 mEq/L (21-32); Bilirubin Total 0.5 mg/dL (0.2-1.0); Globulin 3.4 g/dL (2.3-3.5); Glomerular Filtration Rate 8 ml/min (=/>90); Glucose Level 395 mg/dL (74-106); Protein, Total 6.1 g/dL (6.4-8.2); Sodium Level 133 mEq/L (136-145)
[2024-04-22 00:09] LABS: Bilirubin Direct < 0.2 mg/dL (0-0.2); Bilirubin Indirect, Calculated 0.3 mg/dL (0.2-0.8)
[2024-04-22] MEDS ORDERED: INSULIN REGULAR (HUMAN) 100 UNIT/ML ONE (00:09)
[2024-04-22 00:10] LABS: Potassium 6.4 mEq/L (3.5-5.1)
--- NOTE | 2024-04-22 00:30 | EDPHYS ---
Physician Documentation [facility] Name: Nicolasa German Age: 63 yrs Sex: Female : 1960 Arrival Date: 04/21/2024 Time: 22:06 Bed 2 Private MD: ED Physician Ron Ramos HPI: 04/21 22:17 This 63 yrs old Female presents to ER via Unassigned with complaints of AMS. ec2 22:17 Patient arrives today for reported altered mental status as well as shortness of ec2 breath. EMS reports that the patient was increasingly altered today. Patient is dialysis dependent. Patient also with reported documented hypoxia with oxygen levels in the 80s. No known oxygen requirement.. 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 - Infectious Disease History:: Denies. - Social history:: Smoking status: Patient/guardian denies using tobacco, the patient reports quitting approximately 4 years ago, Patient/guardian denies using alcohol. ROS: 22:17 Constitutional: as per hpi ec2 Exam: 22:17 Constitutional: GEN: NAD Head: atraumatic Eyes: EOMI Ears: External ears are ec2 normal. CV: regular rate LUNGS: no respiratory distress ABD: non-distended SKIN: no evidence of rashes MSK: no evidence of trauma NEURO: moves all extremities equally, confused individual Vital Signs: 22:31 BP 80 / 46; Pulse 61; Resp 25; Pulse Ox 88% on Non-rebreather mask; MAP 58 mmHg; tm6 22:33 BP 105 / 63; Pulse 70; Resp 21; Temp 94.9(TE); Pulse Ox 100% on Non-rebreather mask; tm6 Pain 0/10; 22:38 BP 42 / 30; Pulse 60; Resp 24; Pulse Ox 88% on Non-rebreather mask; MAP 36 mmHg; tm6 22:40 Weight 49.9 kg; Height 5 ft. 1 in. ; tm6 22:45 BP 45 / 28; Pulse 84; Pulse Ox 82% on Non-rebreather mask; tm6 22:51 BP 96 / 85; Pulse 63; Pulse Ox 94% on BVM; MAP 69 mmHg; tm6 22:58 BP 99 / 83; Pulse 70; Pulse Ox 96% on BVM; MAP 90 mmHg; tm6 04/22 00:15 BP 109 / 97; Pulse 82; Pulse Ox 99% ; kl 00:25 BP 119 / 77; Pulse 83; Resp 16; Temp 93.2; Pulse Ox 98% ; kl 01:06 BP 153 / 78; Pulse 85; Resp 16; Temp 96.6(Ca); Pulse Ox 98% on ETT vent; FiO2 100 %; kl 01:52 BP 131 / 72; Pulse 72; Resp 12; Temp 95.8(Ca); Pulse Ox 100% on ETT vent; FiO2 100 %; bm8 Pain 0/10; 04/21 22:40 Body Mass Index 20.78 (49.90 kg, 154.94 cm) tm6 22:33 Pain Scale: Adult tm6 01:52 Pain Scale: Adult bm8 04/21 22:33 unable to get oral or axillary temp -- bear hugger applied tm6 Antonio Coma Score: 04/22 01:22 Eye Response: none(1). Modifying Factors: Intubated. Motor Response: none(1). Verbal bm8 Response: none(1). Total: 3. Procedures: 04/21 23:58 Intubation: Ventilated with 100% NRB prior to procedure. Intubated orally using # 3 ec2 Jack blade with 7.5 mm ETT. was successful on first attempt. Ventilated with Ambu bag. ventilator. Tube secured with ETT berman at right side of mouth Placement verified by CO2 detector with (+) color change, auscultating bilateral breath sounds. 23:59 Intubation: Patient tolerated well. Central Line: the site was prepped with Betadine, ec2 in sterile fashion, a triple lumen catheter was inserted, in the right in 3 attempts. placement was verified, by blood return, the site was dressed with 4X4s, Tegaderm, the patient tolerated the procedure, well. MDM: 22:09 Patient medically screened. ec2 22:17 Data reviewed: vital signs. ED course: Patient arrives today for evaluation of altered ec2 mental status. Examination remarkable for nontoxic individuals otherwise altered and in no acute respiratory distress. Will obtain lab work, EKG, chest x-ray. Differential includes hyper uremia, pneumonia, UTI.. 22:23 ED course: EKG obtained, independently reviewed and interpreted by me, shows normal ec2 sinus rhythm, rate of 71, no acute ST single appearance, nonspecific T wave abnormalities noted in the lateral leads.. 23:59 ED course: Patient noted to be increasingly altered, I decided to electively intubated, ec2 patient did have hypertensive blood pressures prior to intubation, give the patient pushes of crash dose epinephrine with some response and started her on Levophed. Patient intubated without difficulty. I subsequently placed a central line, initially attempted to left with successful cannulation however had significant resistance with guidewire, subsequently I repeated again however again met resistance however did have successful blood return. Subsequently I changed from left neck to right neck and was able to succeed without issue on first attempt on the right side. Patient did sustain a small hematoma to the left neck which I held pressure on. I did not dilate left neck, I did not have arterial response in the left neck.. 08/ 00:02 ED course: Prior to the patient patient had already received 1 L of crystalloid and had ec2 a second liter of crystalloid infusing during intubation. . 00:02 ED course: Sepsis reassessment complete. . ec2 00:25 ED course: Was called to room, patient noted to be bradycardic with heart rates in the ec2 30s to 40s, gave 1 mg of atropine, obtained EKG which showed sinus bradycardia with a rate of 43, no acute ST send elevations, qrs morphology changes. My concern subsequently became hyperkalemia and empirically gave the patient bicarb, calcium. Was told potassium subsequently was elevated. Also gave insulin. Repeat EKG after interventions shows sinus heart rate with a rate of 90. 00:28 ED course: Metabolic profile shows hyperkalemia 6.4, anion gap at 25 with renal failure ec2 and a creatinine of 5.71. Lactic acid elevated at 10.4. Chest x-ray shows right-sided patchy opacities. I did already empirically give ceftriaxone. Will add on azithromycin as well. . 00:35 ED course: Patient with marked BNP elevation at greater than 175,000, marked troponin ec2 elevation as well at 64,865. Ultimately I suspect this is all secondary to demand. Patient does not meet Sgarbossa criteria on EKG, does not have an acute STEMI. Will give the patient heparin as well. . 04/21 22:19 Order name: Basic Metabolic Panel; Complete Time: 00:35 ec2 04/21 22:19 Order name: CBC with Diff ec2 04/21 22:19 Order name: LFT's; Complete Time: 00:35 ec2 04/21 22:19 Order name: NT PRO-BNP; Complete Time: 00:35 ec2 04/21 22:19 Order name: Troponin HS; Complete Time: 00:35 ec2 04/21 22:19 Order name: UAM ec2 04/21 22:23 Order name: Blood Culture Adult (2) ec2 04/21 22:23 Order name: Lactate w/ 2H reflex if indic.; Complete Time: 00:27 ec2 04/21 22:23 Order name: Protime (+inr); Complete Time: 00:27 ec2 04/21 22:23 Order name: Ptt, Activated; Complete Time: 00:27 ec2 04/21 22:55 Order name: Glucose, Ancillary Testing; Complete Time: 00:27 EDMS 04/21 23:05 Order name: CBC Smear Scan EDMS 04/22 00:47 Order name: ABG ec2 04/22 01:19 Order name: Urinalysis w/ reflexes EDMS 04/22 01:19 Order name: CBC with Automated Diff EDMS 04/22 01:19 Order name: CBC with Automated Diff EDMS 04/22 01:19 Order name: Comprehensive Metabolic Panel EDMS 04/22 01:19 Order name: Comprehensive Metabolic Panel EDMS 04/22 01:19 Order name: Troponin High Sensitivity EDMS 04/22 01:19 Order name: Troponin High Sensitivity EDMS 04/22 01:19 Order name: Troponin High Sensitivity EDMS 04/22 01:19 Order name: Troponin High Sensitivity EDMS 04/22 01:19 Order name: Troponin High Sensitivity EDMS 04/22 01:19 Order name: Troponin High Sensitivity EDMS 04/22 01:20 Order name: Troponin High Sensitivity EDMS 04/22 01:26 Order name: Ghost Lactate-NO COLLECT Timer EDMS 04/22 02:05 Order name: Potassium bm8 04/22 02:45 Order name: Lactate Sepsis 2 HR Follow-up EDMS 04/22 02:48 Order name: Potassium EDMS 04/21 22:19 Order name: XRAY Chest (1 view) ec2 04/21 23:47 Order name: Chest Single View XRAY jb4 04/21 22:23 Order name: EKG; Complete Time: 22:23 ec2 04/21 22:19 Order name: Cardiac monitoring; Complete Time: 22:32 ec2 04/21 22:19 Order name: EKG - Nurse/Tech; Complete Time: 22:32 ec2 04/21 22:19 Order name: IV Saline Lock; Complete Time: 22:44 ec2 04/21 22:19 Order name: Labs collected and sent; Complete Time: 22:44 ec2 04/21 22:19 Order name: O2 Per Protocol; Complete Time: 22:32 ec2 04/21 22:19 Order name: O2 Sat Monitoring; Complete Time: 22:32 ec2 04/21 22:19 Order name: Cath; Complete Time: 01:15 ec2 04/21 22:23 Order name: Accucheck; Complete Time: 22:44 ec2 04/21 22:23 Order name: IV Saline Lock - Large Bore; Complete Time: 22:44 ec2 04/21 22:23 Order name: Vital Signs; Complete Time: 22:44 ec2 04/22 00:48 Order name: Misc. Order: Mechanical Ventilation; Complete Time: 00:49 jb4 Administered Medications: 04/21 22:50 Drug: NS 0.9% IV 2000 ml IV at 1 bolus Per protocol; 1000 mL bolus Route: IV; Rate: 1 kl bolus; Site: right upper arm; 04/22 01:43 Follow up: Response: No adverse reaction; IV Status: Completed infusion; IV Intake: bm8 2000ml 04/21 23:00 Drug: Norepinephrine IV 0.1 mcg/kg/min IV at calculated rate See Administration kl Instructions; (Standard concentration 4 mg / 250 mL D5W); Recommended max rate 3 mcg/kg/min; Titrate 0.05 mcg/kg/min as often as every 5 minutes to achieve goal (see titration policy); Goal parameter MAP greater than 65 mmHg. Route: IV; Rate: calculated rate; Site: right antecubital; 04/22 01:42 Follow up: Response: No adverse reaction; IV Status: Infusion continued upon admission; bm8 currently 40mcg/min 04/21 23:06 Drug: Etomidate IVP 20 mg IVP once Route: IVP; Site: right upper arm; 04/22 01:41 Follow up: Response: No adverse reaction [facility] 04/21 23:07 Drug: Rocuronium IVP 70 mg IVP once {Note: 99/83 pulse 65 .} Route: IVP; Site: right upper arm; 04/22 01:41 Follow up: Response: No adverse reaction [facility] 04/21 23:40 Drug: EPINEPHrine (PF) IV 0.01 mcg/kg/min IV at calculated rate See Administration kl Instructions; Standard concentration 4 mg / 250 mL D5W; Recommended max rate 2 mcg/kg/min; Titrate 0.01 mcg/kg/min as often as every 3 minutes to achieve goal [see titration policy]; Goal parameter MAP greater than 65 mmHg. {Note: 2 mcg/min bp 76/60 pulse 77 O2 sat 88%.} Route: IV; Rate: calculated rate; [facility]; 04/22 01:43 Follow up: Response: No adverse reaction; IV Status: Infusion continued upon admission; bm8 10 mcg/min 04/21 23:50 Drug: Rocephin IV 1 grams IV at per protocol once; Given slow IV push per pharmacy instructions Route: IV; Rate: per protocol; Site: right upper arm; 04/22 01:43 Follow up: Response: No adverse reaction; IV Status: Completed infusion; IV Intake: [id number] 00:09 Drug: Insulin Regular Human IVP 10 units IVP once {Co-Signature: jb4 (Piero Diaz RN).} Route: IVP; Site: right jugular; 01:42 Follow up: Response: No adverse reaction 8 00:09 Drug: Calcium Gluconate IVPB 1 grams IVPB once over 2 mins; (mix in NS 100 mL) Route: kl IVPB; Infused Over: 2 mins; Site: right jugular; 01:43 Follow up: Response: No adverse reaction; IV Status: Completed infusion; IV Intake: bm8 100ml 00:09 Drug: Sodium Bicarbonate IVP 1 amp IVP once; (50 mL); equals 50 mEq Route: IVP; Site: right jugular; :41 Follow up: Response: No adverse reaction bm8 00:20 Drug: Atropine IVP 1 mg IVP once Route: IVP; Site: right jugular; kl 01:40 Follow up: Response: No adverse reaction bm8 00:31 CANCELLED (Other Intervention Used): rocephin (ceftriaxone)1 grams IM once kl 01:10 Drug: Heparin (FL Drip) 12 units/kg/hr - ([place] [address] units, D5W IV 500 ml) IV at bm8 calculated rate Per protocol; Max initial rate 1000 units/hr {Co-Signature: tm6 (Joni Andrews RN).} Route: IV; Rate: calculated rate; Site: right upper arm; :41 Follow up: Response: No adverse reaction; IV Status: Infusion continued upon admission bm8 01:14 Drug: Sodium Bicarbonate IVP 1 amp IVP once; (50 mL); equals 50 mEq {Note: central bm8 line.} Route: IVP; Site: Other; :41 Follow up: Response: No adverse reaction bm8 01:14 Drug: Calcium Gluconate IVPB 1 grams IVPB once over 2 mins; (mix in NS 100 mL) {Note: bm8 central line.} Route: IVPB; Infused Over: 2 mins; Site: Other; :41 Follow up: Response: No adverse reaction; IV Status: Completed infusion; IV Intake: bm8 100ml 01:49 Drug: Furosemide IVP 80 mg IVP once; give over 2 minutes {Note: central line.} Route: bm8 IVP; Site: Other; 01:52 Follow up: Response: No adverse reaction bm8 01:49 Drug: Propofol IV 5 mcg/kg/min IV at calculated rate See Administration Instructions; bm8 Standard concentration 1000 mg / 100 mL; Recommended max rate 50 mcg/kg/min; Titrate 2 mcg/kg/min every 5 minutes to achieve goal (see titration policy); Goal parameter RASS score 0 to -2 {Note: central line .} Route: IV; Rate: calculated rate; Site: Other; 01:50 Follow up: Response: No adverse reaction; IV Status: Infusion continued upon admission bm8 Disposition Summary: 04/22/24 00:29 Hospitalization Ordered Notes: Hospitalization Status: Inpatient Admission ec2 Provider: Willie Javier ec2 Location: Intensive Care Unit ec2 Condition: Serious ec2 Problem: an acute exacerbation ec2 Symptoms: have improved ec2 Bed/Room Type: Standard ec2 Room Assignment: 6-(04/22/24 01:47) nicole Diagnosis - Sepsis, unspecified organism ec2 - Severe sepsis with septic shock ec2 - Pneumonia, unspecified organism ec2 - Altered mental status, unspecified ec2 - Hyperkalemia ec2 Forms: - Medication Reconciliation Form ec2 - SBAR form ec2 - Leadership Thank You Letter ec2 Critical care time excluding procedures: 00:28 Critical care time: Bedside Care: 60 minutes, Consultation: 5 minutes, Family ec2 Intervention: 15 minutes. Total time: 80 minutes Signatures: Dispatcher [employer] EDAgustina Sosa RN Piero House RN BELLA jb4 Ron Ramos MD MD ec2 Masterson, Tawney, RN RN tm6 Gerardo Montelongo RN BELLA bm8 Piero Diaz RN4 Joni Andrews RN tm6 Corrections: (The following items were deleted from the chart) 04/21 22:24 22:23 BLOOD CULTURE*+BA.LAB.BRZ ordered. [facility] 22:24 22:23 LACTATE+C.LAB.BRZ ordered. [facility] 22:24 22:23 PROTIME (+INR)+COAG.LAB.BRZ ordered. [facility] 22:24 22:23 PTT, ACTIVATED+COAG.LAB.BRZ ordered. [facility] 04/22 00:31 00:31 Rocephin (cefTRIAXone) IM 1 grams IM once ordered. nicole rivera 00:32 00:25 ED course: Was called to room, patient noted to be bradycardic with heart rates ec2 in the 30s to 40s, gave 1 mg of atropine, obtained EKG which showed sinus bradycardia with a rate of 43, no acute ST send elevations, did have a low bundle-branch block. My concern subsequently became hyperkalemia and empirically gave the patient bicarb, calcium. Was told potassium subsequently was elevated. Also gave insulin. Repeat EKG after interventions shows sinus heart rate with a rate of 90, percent left block noted.. ec2 01:47 00:29 ec2 kl
--- NOTE | 2024-04-22 00:30 | ER ---
Nurse's Notes [facility] Name: Nicolasa German Age: 63 yrs Sex: Female : 1960 Arrival Date: 04/21/2024 Time: 22:06 Bed 2 Private MD: Diagnosis: Sepsis, unspecified organism;Severe sepsis with septic shock;Pneumonia, unspecified organism;Altered mental status, unspecified;Hyperkalemia Presentation: 04/21 22:33 Chief complaint: EMS states: about 1 hour ago, patient became short of breath, had tm6 gurgling in throat, and became altered/confused. Coronavirus screen: At this time, the client does not indicate any symptoms associated with coronavirus-19. Ebola Screen: Patient negative for fever greater than or equal to 101.5 degrees Fahrenheit, and additional compatible Ebola Virus Disease symptoms Patient denies exposure to infectious person. Patient denies travel to an Ebola-affected area in the 21 days before illness onset. No symptoms or risks identified at this time. Initial Sepsis Screen: Does the patient meet any 2 criteria? RR > 20 per min. Temp <36.0*C (96.8*F)) or > 38.3*C (100.9*F). Altered Mental Status. Yes Does the patient have a suspected source of infection? No. Patient's initial sepsis screen is negative. Risk Assessment: Do you want to hurt yourself or someone else? Patient reports no desire to harm self or others. Onset of symptoms was April 21, 2024 at 21:30. 22:33 Method Of Arrival: EMS: [facility] tm6 22:33 Acuity: RAFI 2 tm6 04/22 00:54 Note 2315 Pt bp 69/[address] 89% on 100% ETT Epi increased to 5mcg/min. kl Triage Assessment: 04/21 22:40 General: Appears distressed, uncomfortable, ill, Behavior is cooperative, restless. tm6 Pain: Denies pain. 23:05 EENT: No signs and/or symptoms were reported regarding the EENT system. Neuro: Level of tm6 Consciousness is lethargic, Oriented to none. Cardiovascular: Capillary refill is > 3 seconds fingers Rhythm is sinus rhythm. Respiratory: Airway is patent Respiratory effort is labored, Respiratory pattern is tachypnea the patient has moderate shortness of breath. GI: No signs and/or symptoms were reported involving the gastrointestinal system. Abdomen is flat, non-distended. : No signs and/or symptoms were reported regarding the genitourinary system. Derm: Skin temperature is cool. Musculoskeletal: No signs and/or symptoms reported regarding the musculoskeletal system. 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 - Infectious Disease History:: Denies. - Social history:: Smoking status: Patient/guardian denies using tobacco, the patient reports quitting approximately 4 years ago, Patient/guardian denies using alcohol. Screenin:06 [facility] ED Fall Risk Assessment (Adult) History of falling in the last 3 months, tm6 including since admission No falls in past 3 months (0 pts) Confusion or Disorientation Yes (5 pts) Intoxicated or Sedated No (0 pts) Impaired Gait No (0 pts) Mobility Assist Device Used No (0 pt) Altered Elimination No (0 pt) Score/Fall Risk Level 3 or more points = High Risk Oriented to surroundings, Maintained a safe environment, Educated pt \T\ family on fall prevention, incl call for assistance when getting out of bed. Abuse screen: Denies threats or abuse. Denies injuries from another. Nutritional screening: No deficits noted. Tuberculosis screening: No symptoms or risk factors identified. Assessment: 22:20 General: Appears distressed, uncomfortable, ill, slender, Behavior is listless. Pain: bm8 Denies pain. 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 Cardiovascular: Heart tones S1 S2 present Capillary refill is > 3 seconds is sluggish in bilateral fingers toes Dialysis shunt: in the left bicep, with palpable thrill, with auscultated bruit, with no erythema, with no edema, no bleeding noted. Respiratory: Airway is patent Respiratory effort is gasping, Respiratory pattern is agonal hypoventilation Breath sounds are clear bilaterally. GI: No signs and/or symptoms were reported involving the gastrointestinal system. : No signs and/or symptoms were reported regarding the genitourinary system. EENT: No signs and/or symptoms were reported regarding the EENT system. Derm: Skin is intact, Skin is dry, Skin is dusky, mottled, Skin temperature is cold. Musculoskeletal: No signs and/or symptoms reported regarding the musculoskeletal system. 23:06 Reassessment: see triage assessment. tm6 04/22 00:56 General: 2340 pt BP 76/60 Epi gtt initiated at 2mcg/min 2353 Epi gtt increased to kl 3mcg/min for BPV 68/55 pulse 73 2356 BP 61/46 pulse 53 Epi increased to 10mcg/min 0005 rythym change to idioventricular at rate of 31 Atropine 1mg administered . Vital Signs: 04/21 22:31 BP 80 / 46; Pulse 61; Resp 25; Pulse Ox 88% on Non-rebreather mask; MAP 58 mmHg; tm6 22:33 BP 105 / 63; Pulse 70; Resp 21; Temp 94.9(TE); Pulse Ox 100% on Non-rebreather mask; tm6 Pain 0/10; 22:38 BP 42 / 30; Pulse 60; Resp 24; Pulse Ox 88% on Non-rebreather mask; MAP 36 mmHg; tm6 22:40 Weight 49.9 kg; Height 5 ft. 1 in. ; tm6 22:45 BP 45 / 28; Pulse 84; Pulse Ox 82% on Non-rebreather mask; tm6 22:51 BP 96 / 85; Pulse 63; Pulse Ox 94% on BVM; MAP 69 mmHg; tm6 22:58 BP 99 / 83; Pulse 70; Pulse Ox 96% on BVM; MAP 90 mmHg; tm6 04/22 00:15 BP 109 / 97; Pulse 82; Pulse Ox 99% ; kl 00:25 BP 119 / 77; Pulse 83; Resp 16; Temp 93.2; Pulse Ox 98% ; kl 01:06 BP 153 / 78; Pulse 85; Resp 16; Temp 96.6(Ca); Pulse Ox 98% on ETT vent; FiO2 100 %; kl 01:52 BP 131 / 72; Pulse 72; Resp 12; Temp 95.8(Ca); Pulse Ox 100% on ETT vent; FiO2 100 %; bm8 Pain 0/10; 04/21 22:40 Body Mass Index 20.78 (49.90 kg, 154.94 cm) tm6 22:33 Pain Scale: Adult tm6 01:52 Pain Scale: Adult bm8 08 22:33 unable to get oral or axillary temp -- bear hugger applied tm6 [place] Coma Score: 04/22 01:22 Eye Response: none(1). Modifying Factors: Intubated. Motor Response: none(1). Verbal bm8 Response: none(1). Total: 3. ED Course: 04/21 22:08 Patient arrived in ED. ec2 22:09 Ron Ramos MD is Attending Physician. ec2 22:09 Inserted saline lock: 20 gauge in right upper arm, using aseptic technique. Blood tm6 collected. Flushed with 10 mL NS. Oxygen administration via non-rebreather mask \T\ 15L/min Response to oxygen therapy: symptoms remain unchanged. 22:09 Client placed on continuous cardiac and pulse oximetry monitoring. NIBP monitoring tm6 applied. flying shear operator on. Pulse ox on. NIBP on. Warm blanket given. bear hugger applied. 22:15 EKG done, by ED staff, reviewed by Ron Ramos MD. tm6 22:32 Joni Andrews, RN is Primary Nurse. tm6 22:38 Triage completed. tm6 22:49 XRAY Chest (1 view) In Process Unspecified. EDMS 23:05 Arm band placed on right wrist. tm6 23:06 Patient has correct armband on for positive identification. Bed in low position. Side tm6 rails up X2. Provided Education on: plan of care. 23:09 Assisted provider with intubation using 7.5 mm ETT via oral route. ET tube secured at kl 22cm at the teeth. Set up intubation tray. Intubated by Ron Ramos MD Placement verified by CO2 detector w/ + color change, auscultating bilateral breath sounds, CXR, Patient tolerated well. 23:30 Assisted provider with central line placement. Set up central line tray. Triple lumen kl line placed in right internal jugular. Line placed by Ron Ramos MD Placement verified by CXR, blood return, Dressed with Tape, Tegaderm, Patient tolerated well. Was handwashing/sanitizing done immediately prior to procedure? Yes. Was patient positioned to in a way to prevent air embolism? Yes. Was procedure site sterilized? Yes, with chlorhexidine. Was the site allowed to dry? Yes. During the procedure, did the Practitioner(s) maintain a sterile field? Yes. Were unused ports clamped during insertion? Yes. Was a 2nd qualified MD obtained after 3 unsuccessful insertion attempts? No. Was blood aspirated from each lumen? Yes. 04/22 00:13 Chest Single View XRAY In Process Unspecified. EDMS 00:29 Willie Javier MD is Hospitalizing Provider. ec2 01:22 Brennan cath inserted, using sterile technique, 16 Fr., by me, balloon inflated, to bm8 gravity drainage, other Temperature Brennan used. Thermoregulation: warm blanket given to patient. Aris blanket applied. 01:22 One-on-one care X 150 minutes. bm8 01:40 repeat trop and lac sent. bm8 02:08 Patient admitted, IV remains in place. bm8 Administered Medications: 04/21 22:50 Drug: NS 0.9% IV 2000 ml IV at 1 bolus Per protocol; 1000 mL bolus Route: IV; Rate: 1 kl bolus; Site: right upper arm; 04/22 01:43 Follow up: Response: No adverse reaction; IV Status: Completed infusion; IV Intake: bm8 2000ml 04/21 23:00 Drug: Norepinephrine IV 0.1 mcg/kg/min IV at calculated rate See Administration kl Instructions; (Standard concentration 4 mg / 250 mL D5W); Recommended max rate 3 mcg/kg/min; Titrate 0.05 mcg/kg/min as often as every 5 minutes to achieve goal (see titration policy); Goal parameter MAP greater than 65 mmHg. Route: IV; Rate: calculated rate; Site: right antecubital; 04/22 01:42 Follow up: Response: No adverse reaction; IV Status: Infusion continued upon admission; bm8 currently 40mcg/min 04/21 23:06 Drug: Etomidate IVP 20 mg IVP once Route: IVP; Site: right upper arm; 04/22 01:41 Follow up: Response: No adverse reaction bm8 04/21 23:07 Drug: Rocuronium IVP 70 mg IVP once {Note: 99/83 pulse 65 .} Route: IVP; Site: right upper arm; 04/22 01:41 Follow up: Response: No adverse reaction bm8 04/21 23:40 Drug: EPINEPHrine (PF) IV 0.01 mcg/kg/min IV at calculated rate See Administration kl Instructions; Standard concentration 4 mg / 250 mL D5W; Recommended max rate 2 mcg/kg/min; Titrate 0.01 mcg/kg/min as often as every 3 minutes to achieve goal [see titration policy]; Goal parameter MAP greater than 65 mmHg. {Note: 2 mcg/min bp 76/60 pulse 77 O2 sat 88%.} Route: IV; Rate: calculated rate; Site: right antecubital; 04/22 01:43 Follow up: Response: No adverse reaction; IV Status: Infusion continued upon admission; bm8 10 mcg/min 04/21 23:50 Drug: Rocephin IV 1 grams IV at per protocol once; Given slow IV push per pharmacy instructions Route: IV; Rate: per protocol; Site: right upper arm; 04/22 01:43 Follow up: Response: No adverse reaction; IV Status: Completed infusion; IV Intake: [id number] 00:09 Drug: Insulin Regular Human IVP 10 units IVP once {Co-Signature: [email or web address] (Piero Diaz RN).} Route: IVP; Site: right jugular; 01:42 Follow up: Response: No adverse reaction bm8 00:09 Drug: Calcium Gluconate IVPB 1 grams IVPB once over 2 mins; (mix in NS 100 mL) Route: IVPB; Infused Over: 2 mins; Site: right jugular; 01:43 Follow up: Response: No adverse reaction; IV Status: Completed infusion; IV Intake: bm8 100ml 00:09 Drug: Sodium Bicarbonate IVP 1 amp IVP once; (50 mL); equals 50 mEq Route: IVP; Site: right jugular; 01:41 Follow up: Response: No adverse reaction bm8 00:20 Drug: Atropine IVP 1 mg IVP once Route: IVP; Site: right jugular; 01:40 Follow up: Response: No adverse reaction bm8 00:31 CANCELLED (Other Intervention Used): rocephin (ceftriaxone)1 grams IM once 01:10 Drug: Heparin (KS Drip) 12 units/kg/hr - ([place] [address] units, D5W IV 500 ml) IV at bm8 calculated rate Per protocol; Max initial rate 1000 units/hr {Co-Signature: tm6 (Joni Andrews RN).} Route: IV; Rate: calculated rate; Site: right upper arm; :41 Follow up: Response: No adverse reaction; IV Status: Infusion continued upon admission bm8 01:14 Drug: Sodium Bicarbonate IVP 1 amp IVP once; (50 mL); equals 50 mEq {Note: central bm8 line.} Route: IVP; Site: Other; :41 Follow up: Response: No adverse reaction bm8 01:14 Drug: Calcium Gluconate IVPB 1 grams IVPB once over 2 mins; (mix in NS 100 mL) {Note: bm8 central line.} Route: IVPB; Infused Over: 2 mins; Site: Other; :41 Follow up: Response: No adverse reaction; IV Status: Completed infusion; IV Intake: bm8 100ml 01:49 Drug: Furosemide IVP 80 mg IVP once; give over 2 minutes {Note: central line.} Route: bm8 IVP; Site: Other; 01:52 Follow up: Response: No adverse reaction bm8 01:49 Drug: Propofol IV 5 mcg/kg/min IV at calculated rate See Administration Instructions; bm8 Standard concentration 1000 mg / 100 mL; Recommended max rate 50 mcg/kg/min; Titrate 2 mcg/kg/min every 5 minutes to achieve goal (see titration policy); Goal parameter RASS score 0 to -2 {Note: central line .} Route: IV; Rate: calculated rate; Site: Other; 01:50 Follow up: Response: No adverse reaction; IV Status: Infusion continued upon admission bm8 Medication: 04/21 23:06 VIS not applicable for this client. tm6 Intake: 04/22 01:41 IV: 100ml; Total: 100ml. bm8 01:43 IV: 100ml; Total: 200ml. bm8 01:43 IV: 2000ml; Total: 2200ml. bm8 01:43 IV: 50ml; Total: 2250ml. bm8 Outcome: 00:29 Decision to Hospitalize by Provider. ec2 02:07 Admitted to ICU accompanied by nurse, via stretcher, room 4, with oxygen, on monitor, bm8 with chart, Report called to julia cabrera 02:07 critical 02:07 Instructed on the need for admit, Demonstrated understanding of instructions, follow-up care, 02:55 Patient left the ED. bm8 Signatures: Dispatcher [employer] Agustina Womack, RN RN Ron Villanueva MD MD ec2 Joni Andrews RN RN tm6 Gerardo Montelongo RN RN bm8 Piero Diaz RN [email or web address] Joni Andrews RN tm6 Corrections: (The following items were deleted from the chart) 00:53 00:01 Assisted provider with intubation using 7.5 mm ETT via oral route. ET tube kl secured at 22cm at the teeth. Intubated by Ron Ramos MD Placement verified by CO2 detector w/ + color change, auscultating bilateral breath sounds, CXR, Patient tolerated well. nicole 01:22 08 22:20 GCS: 3, Intubated, bm8 bm8
[2024-04-22 00:31] LABS: NT PRO-BNP > 175000 pg/mL (<125); Troponin High Sensitivity 64865.8 pg/mL (<58.9)
[2024-04-22] MEDS ORDERED: Calcium Chloride 10% INJ SYR IV ONE (00:43)
[2024-04-22] MEDS ORDERED: SODIUM BICARB 50 MEQ/50ML VIAL ONE ×2 (00:44→02:56)
[2024-04-22] MEDS ORDERED: HEPARIN/D5W 25,000 UNIT/500 ML BAG IV ONE (00:44)
[2024-04-22 00:51] LABS: Blood Gas Oxyhemoglobin 94.8 % (94-97); Blood O2 Saturation 96.4 % (92-98.5)
[2024-04-22 00:52] LABS: Blood Gas THB 10.7 g/dl (12-18)
[2024-04-22 01:10] LABS: Blood Morphology Comment NOT SEEN (NOT SEEN); Platelet Estimate DECR; White Blood Cell Scan OK (OK)
[2024-04-22] MEDS ORDERED: ONDANSETRON 4 MG/2 ML VIAL IV PRN (01:12)
[2024-04-22] MEDS ORDERED: ACETAMINOPHEN 650MG/RECT SUPP PR PRN (01:12)
--- NOTE | 2024-04-22 01:12 | P.HP ---
Certification for Inpatient Patient admitted to: Inpatient With expected LOS: >2 Midnights Practitioner: I am a practitioner with admitting privileges, knowledge of patient current condition, hospital course, and medical plan of care. Services: Services provided to patient in accordance with Admission requirements found in Title 42 Section 412.3 of the Code of Federal Regulations Patient History Date of Service: 04/22/24 Reason for admission: AMS History of Present Illness: 63-year-old female with history of hypertension, hyperlipidemia, ESRD on HD MWF presents emergency department with altered mental status and shortness of breath. Patient is intubated and on mechanical ventilator support on time of interview. Hence most of the history is obtained from the chart review and also talking to the family and ER physician. As per them patient started having difficulty in breathing and has become increasingly altered. And she was hypoxic and had respiratory distress and had to be intubated and was placed on mechanical ventilator support. No previous history of hypoxic respiratory failure. Patient was assessed in the ER and was found to be in shock and had to be placed on vasopressors and was found to be in hyperkalemic. Patient is being admitted for further management Allergies adhesive tape Allergy (Verified 03/11/24 12:57) Hives/Rash chlorhexidine Allergy (Verified 03/11/24 14:11) Hives/Rash codeine Allergy (Verified 02/14/19 11:20) Itching/Hives/Rash morphine Allergy (Verified 02/03/23 22:34) Hives/Rash Penicillins Allergy (Verified 02/03/23 22:34) Hives/Rash sulfamethoxazole [From Sulfamethoxazole-Trimethoprim] Allergy (Verified 03/11/24 12:57) Hives/Rash trimethoprim [From Sulfamethoxazole-Trimethoprim] Allergy (Verified 03/11/24 12:57) Hives/Rash Erythromycin Allergy (Uncoded 02/03/23 22:34) Hives/Rash Home medications list reviewed: Yes Home Medications: Aspirin Chewable [Aspirin Chewable*] 81 mg PO DAILY #30 tab.chew 07/25/17 Cholecalciferol (Vitamin D3) [D3-5000] 125 mcg PO DAILY 03/11/24 Folic Acid/Vit B Complex and C [Radha-Arnie Tablet] 0.8 mg PO DAILY 03/11/24 Isosorbide Mononitrate [Isosorbide Mononitrate ER] 120 mg PO DAILY 03/11/24 Labetalol HCl [Trandate] 200 mg PO TID 03/11/24 Magnesium Oxide [Mag-Oxide] 400 mg PO DAILY 03/11/24 Pantoprazole [Protonix Tab*] 40 mg PO DAILY 03/11/24 Quetiapine [Seroquel*] 25 mg PO BID 03/11/24 NIFEdipine [Nifedipine ER] 90 mg PO BID #60 tab 03/13/24 Atorvastatin Calcium [Lipitor] 10 mg PO DAILY 04/22/24 - Past Medical/Surgical History Diabetic: Yes Past Medical History: Reviewed- Non-Contributory -: HTN -: DM II -: HLD -: ESRD on HD (Dr. Rojas/Soham) -: HLD -: CVA (right side weakness) Past Surgical History: Reviewed- Non-Contributory -: breast reduction Psychosocial/ Personal History: Lives at home with family - Family History Father -: Heart disease, Hypertension - Social History Smoking Status: Never smoker Alcohol use: No CD- Drugs: No Caffeine use: No Review of Systems is unable to be obtained Physical Examination - Vital Signs Temperature: 97.2 F Blood Pressure: 84/48 Pulse: 62 Respirations: 20 Pulse Ox (%): 94 - Physical Exam General: Other (Altered , intubated on mechanical and lacks about) HEENT: Atraumatic, Normocephalic Neck: Supple Respiratory: Diminished, Crackles/rales Cardiovascular: Regular rate/rhythm, Normal S1 S2 Capillary refill: <2 Seconds Gastrointestinal: Soft and benign, W/out hepatosplenomegaly Musculoskeletal: No clubbing, No swelling Integumentary: No rashes Neurological: Other (Altered ) Lymphatics: No axilla or inguinal lymphadenopathy - Studies Laboratory Data (last 24 hrs) 04/21/24 04/21/24 04/21/24 22:26 22:26 22:26 WBC 11.80 H Hgb 10.9 L Hct 33.3 L Plt Count 98 L PT 11.0 INR 0.98 APTT 26.9 Sodium 133 L Potassium 6.4 H* BUN 47 H Creatinine 5.71 H Glucose 395 H Total Bilirubin 0.5 AST 206 H ALT 31 Alkaline Phosphatase 76 Assessment and Plan - Plan Acute encephalopathy metabolic Monitor closely in the telemetry Monitoring her vital signs closely Will get a CT of the head Acute on chronic CHF possibly systolic/diastolic Monitor closely on telemetry Started on aggressive diuresis Patient is intubated on mechanical ventilator support Will try to wean down oxygen requirement Will obtain an echocardiogram Cardiology consult NSTEMI Will trend cardiac enzymes Will monitor telemetry Will get an echocardiogram ESRD on dialysis Hyperkalemia Antihyperkalemic measures Nephrology consulted Severe metabolic acidosis noted Started on sodium bicarbonate drip Shock multifactorial On multiple pressors Titrate to MAP more than 65 GI/DVT prophylaxis Advanced directive full code Total critical care time used was 68 minutes - Advance Directives Does patient have a Living Will: No Does patient have a Durable POA for Healthcare: No Time Spent Managing Pts Care (In Minutes): 68
[2024-04-22] MEDS ORDERED: FUROSEMIDE 100 MG/10 ML VIAL IV ONE (01:45)
[2024-04-22] MEDS ORDERED: D5W 1,000 ML with NA BICARB 8.4% 150 MEQ IV SCH (02:00)
[2024-04-22 02:47] LABS: Potassium 5.5 mEq/L (3.5-5.1); Troponin High Sensitivity 51577.1 pg/mL (<58.9)
[2024-04-22] MEDS ORDERED: D5W 1,000 ML IV ONE (02:57)
[2024-04-22] MEDS ORDERED: HEPARIN/D5W 25,000 UNIT/500 ML BAG IV PRN (02:59)
[2024-04-22] MEDS ORDERED: propofoL 1,000 MG/100 ML VIAL IV SCH (03:00)
[2024-04-22] MEDS: NOREPINEPHRINE 4 MG in D5W 250 ML IV SCH (03:30)
[2024-04-22] MEDS: SODIUM ZIRCONIUM CYCLOSILICATE 10 GM/PKT FT ONE (03:43)
[2024-04-22] MEDS: D5W 1,000 ML with NA BICARB 8.4% 150 MEQ IV SCH ×2 (03:43→09:00)
[2024-04-22] MEDS: FUROSEMIDE 40 MG/4 ML VIAL IV SCH (03:44)
[2024-04-22 04:27] VITALS: BMI 20.7
[2024-04-22 06:29] LABS: Potassium 5.3 mEq/L (3.5-5.1)
[2024-04-22 06:31] LABS: Troponin High Sensitivity 16208.4 pg/mL (<58.9)
--- NOTE | 2024-04-22 07:53 | P.PN ---
Subjective Date of Service: 04/22/24 Physical Examination - Vital Signs Temperature: 97.2 F Blood Pressure: 118/70 Pulse: 72 Respirations: 19 Pulse Ox (%): 96 - Studies Laboratory Data (last 24 hrs) 04/21/24 04/21/24 04/21/24 22:26 22:26 22:26 WBC 11.80 H Hgb 10.9 L Hct 33.3 L Plt Count 98 L PT 11.0 INR 0.98 APTT 26.9 Sodium 133 L Potassium 6.4 H* BUN 47 H Creatinine 5.71 H Glucose 395 H Total Bilirubin 0.5 AST 206 H ALT 31 Alkaline Phosphatase 76 Assessment & Plan - Advance Directives Does patient have a Living Will: No Does patient have a Durable POA for Healthcare: No
[2024-04-22] MEDS ORDERED: ASPIRIN 325 MG TAB PO ONE (08:00)
[2024-04-22] MEDS: ASPIRIN 325 MG TAB FT ONE (08:00)
[2024-04-22] MEDS ORDERED: ASPIRIN EC 325 MG TABLET PO ONE (08:00)
[2024-04-22] MEDS ORDERED: FUROSEMIDE 40 MG/4 ML VIAL IV SCH (09:00)
--- NOTE | 2024-04-22 09:37 | RAD REPORT ---
EXAM DESCRIPTION: RAD - Chest Single View - 04/22/2024 9:29 am CLINICAL HISTORY: Intubated. Pulmonary edema COMPARISON: Chest Single View dated 04/22/2024; Chest Single View dated 04/21/2024; Chest Single View da chelly 03/12/2024; Chest Single View dated 03/11/2024 FINDINGS: Lines: Right IJ approach central venous line with tip overlying the SVC. Enteric tube in t he stomach. Endotracheal tube just above the tip of the aortic arch. Lungs: Similar airspace disease present, predominately right-sided and in the upper lobe. Pleural: Left pleural effusion. Small right effusion difficult to exclude. Cardiac: Cardiomegaly . Mediastinum: Within normal limits. Bones: No acute fractures. Other: None IMPRESSION: 1. Similar bilateral airspace disease which could represent asymmetric pulmonary edema o r pneumonia. 2. Stable support apparatus.
[2024-04-22 10:30] LABS: Blood O2 Saturation 84.7 % (92-98.5)
[2024-04-22 10:31] LABS: Arterial Blood Carboxyhemoglob 0.4 % (0-1.5); Blood Gas Oxyhemoglobin 82.9 % (94-97); Blood Gas THB 11.9 g/dl (12-18)
[2024-04-22] MEDS: ALBUTEROL 2.5 MG/3 ML NEB SOL IH SCH (10:50)
--- NOTE | 2024-04-22 10:51 | P.CNS ---
Date of Consult: 04/22/24 Reason for Consult: Respiratory failure patient on a ventilator Chief Complaint: Respiratory failure History of Present Illness: Patient is 63 years of age with a history of end-stage renal disease prior history of stroke apparently became unresponsive according to the we do not know how long she was unresponsive for hours EMS called patient intubated was transferred here to emergency room and subsequently to the ICU patient is unresponsive off vasopressors family members want withdrawal of care as her baseline functioning is very poor son at the bedside patient has end-stage renal disease on hemodialysis former heavy smoker quit 2 to 3 years ago not on home oxygen Allergies adhesive tape Allergy (Verified 03/11/24 12:57) Hives/Rash chlorhexidine Allergy (Verified 03/11/24 14:11) Hives/Rash codeine Allergy (Verified 02/14/19 11:20) Itching/Hives/Rash morphine Allergy (Verified 02/03/23 22:34) Hives/Rash Penicillins Allergy (Verified 02/03/23 22:34) Hives/Rash sulfamethoxazole [From Sulfamethoxazole-Trimethoprim] Allergy (Verified 03/11/24 12:57) Hives/Rash trimethoprim [From Sulfamethoxazole-Trimethoprim] Allergy (Verified 03/11/24 12:57) Hives/Rash Erythromycin Allergy (Uncoded 02/03/23 22:34) Hives/Rash Home Medications: Aspirin Chewable [Aspirin Chewable*] 81 mg PO DAILY #30 tab.chew 07/25/17 Cholecalciferol (Vitamin D3) [D3-5000] 125 mcg PO DAILY 03/11/24 Folic Acid/Vit B Complex and C [Radha-Arnie Tablet] 0.8 mg PO DAILY 03/11/24 Isosorbide Mononitrate [Isosorbide Mononitrate ER] 120 mg PO DAILY 03/11/24 Labetalol HCl [Trandate] 200 mg PO TID 03/11/24 Magnesium Oxide [Mag-Oxide] 400 mg PO DAILY 03/11/24 Pantoprazole [Protonix Tab*] 40 mg PO DAILY 03/11/24 Quetiapine [Seroquel*] 25 mg PO BID 03/11/24 NIFEdipine [Nifedipine ER] 90 mg PO BID #60 tab 03/13/24 Atorvastatin Calcium [Lipitor] 10 mg PO DAILY 04/22/24 - Past Medical/Surgical History Diabetic: Yes -: HTN -: DM II -: HLD -: ESRD on HD (Dr. Rojas/Soham) -: HLD -: CVA (right side weakness) -: breast reduction -: 2019 Y graft bypass -: Left arm fistula Psychosocial/ Personal History: Lives at home with family - Family History Father Medical History: Heart disease, Hypertension - Social History Smoking Status: Current every day smoker Alcohol use: No CD- Drugs: No Caffeine use: No Place of Residence: Home Review of Systems is unable to be obtained Physical Examination Temp Pulse Resp BP Pulse Ox 98.0 F 98 H 21 H 102/62 94 04/22/24 08:00 04/22/24 10:30 04/22/24 10:30 04/22/24 10:30 04/22/24 10:30 General: Unresponsive Respiratory: Clear to auscultation bilaterally, Diminished Cardiovascular: No edema, Regular rate/rhythm Gastrointestinal: Normal bowel sounds, Soft and benign Neurological: Other (Patient has brisk plantar responses unresponsive) Laboratory Data (last 24 hrs) 04/21/24 04/21/24 04/21/24 22:26 22:26 22:26 WBC 11.80 H Hgb 10.9 L Hct 33.3 L Plt Count 98 L PT 11.0 INR 0.98 APTT 26.9 Sodium 133 L Potassium 6.4 H* BUN 47 H Creatinine 5.71 H Glucose 395 H Total Bilirubin 0.5 AST 206 H ALT 31 Alkaline Phosphatase 76 - Problems (1) Respiratory failure Current Visit: Yes Status: Acute Plan: Patient is 63 years of age admitted with respiratory failure she is currently unresponsive off vasopressors off any sedation very brisk plantar responses is doing well on pressure control ventilation able to decrease her FiO2 chest x-ray shows bilateral infiltrates pneumonia versus pulmonary edema end-stage renal disease on dialysis patient's troponins are significantly elevated it could be an acute coronary event from hypoxemia patient's white count is mildly elevated she is hypoxic hypercapnic patient's vital signs are all stable family members want to withdraw care prognosis poor may have underlying significant obstructive airways disease add some bronchodilators and steroids Qualifiers: Chronicity: unspecified Respiratory failure complication: unspecified whether with hypoxia or hypercapnia Qualified Code(s): J96.90 - Respiratory failure, unspecified, unspecified whether with hypoxia or hypercapnia
[2024-04-22] MEDS: METHYLPREDNISOLONE 40 MG INJ IV SCH (11:49)
[2024-04-22 12:31] LABS: Anion Gap 18.5 mEq/L (5.0-15.0)
[2024-04-22 12:32] LABS: Potassium 5.5 mEq/L (3.5-5.1)
--- NOTE | 2024-04-22 13:50 | RAD REPORT ---
EXAM DESCRIPTION: RAD - Chest Single View - 04/22/2024 1:20 pm CLINICAL HISTORY: vomited on Vent Chest pain. COMPARISON: Chest Single View dated 04/22/2024; Chest Single View dated 04/22/2024; Chest Single View da chelly 04/21/2024; Chest Single View dated 03/12/2024 FINDINGS: Portable technique limits examination quality. Tip of the endotracheal tube is at the level of superior aortic arch. Enteric tube descends in the st omach. Right-sided venous catheter its tip in the SVC. Emphysematous changes are present. Patchy opac ity in the left lung base is present suggesting pneumonia. The heart is mildly prominent in size.Aort ic atherosclerosis.
[2024-04-22] MEDS: MORPHINE 4 MG/ML SYR IV ONE (13:58)
[2024-04-22] MEDS: LORazepam 2 MG/ML VIAL IV ONE (13:58)
--- NOTE | 2024-04-22 14:06 | EKG ---
Test Date: 2024-04-22 Test Time: 00:12:36 Director Of Sales Marketing: SHANIKA MEASUREMENT RESULTS: Intervals: Rate: 90 CO: 216 QRSD: 168 QT: 424 QTc: 518 [place]: P: 81 CO: 216 QRS: -68 T: 103 INTERPRETIVE STATEMENTS: Sinus rhythm with 1st degree AV block Left axis deviation Left bundle branch block Abnormal ECG Compared to ECG 04/22/2024 00:06:48 Sinus bradycardia no longer present Sinus arrhythmia no longer present Electronically Signed On 04-22-24 14:05:13 CDT by Ish Esquivel
--- NOTE | 2024-04-22 14:06 | EKG ---
Test Date: 2024-04-22 Test Time: 00:06:48 Custom Ski Maker: SHANIKA MEASUREMENT RESULTS: Intervals: Rate: 43 IN: 270 QRSD: 216 QT: 594 QTc: 501 [place]: P: 91 IN: 270 QRS: -69 T: 108 INTERPRETIVE STATEMENTS: Marked sinus bradycardia with sinus arrhythmia with 1st degree AV block Left axis deviation Left bundle branch block Abnormal ECG Compared to ECG 04/21/2024 22:12:32 First degree AV block now present Left bundle-branch block now present Sinus rhythm no longer present Myocardial infarct finding no longer present ST (T wave) deviation no longer present Possible ischemia no longer present Electronically Signed On 04-22-24 14:05:14 CDT by Ish Esquivel
--- NOTE | 2024-04-22 14:07 | EKG ---
Test Date: 2024-04-21 Test Time: 22:12:32 Insurance Salesman: CONRAD MEASUREMENT RESULTS: Intervals: Rate: 71 AL: 176 QRSD: 86 QT: 444 QTc: 482 [place]: P: 69 AL: 176 QRS: -58 T: 116 INTERPRETIVE STATEMENTS: Normal sinus rhythm Left axis deviation Septal infarct, age undetermined ST & T wave abnormality, consider lateral ischemia Abnormal ECG Compared to ECG 03/11/2024 07:52:45 Left-axis deviation now present Left posterior fascicular block no longer present Myocardial infarct finding still present ST (T wave) deviation still present Possible ischemia still present Electronically Signed On 04-22-24 14:05:21 CDT by Ish Esquivel
--- NOTE | 2024-04-22 14:27 | ECHO ---
HEIGHT: 5 ft 1 in WEIGHT: 110 lb 0 oz DATE OF STUDY: 04/22/[address]: Ish Esquivel 2-DIMENSIONAL: YES M.MODE: YES DOPPLER: YES COLOR FLOW: YES TDS: NO PORTABLE: YES DEFINITY: NO BUBBLE STUDY: NO DIAGNOSIS: MYOCARDIAL INFARCTION CARDIAC HISTORY: CATHERIZATION: SURGERY: PROSTHETIC VALVE: PACEMAKER: MEASUREMENTS (cm) DIASTOLIC (NORMALS) SYSTOLIC (NORMALS) IVSd 1.2 (0.6-1.2) LA Diam 3.8 (1.9-4.0) LVEF 55-60% LVIDd 3.9 (3.5-5.7) LVIDs 3.1 (2.0-3.5) %FS % LVPWd 1.2 (0.6-1.2) Ao Diam 2.3 (2.0-3.7) 2 DIMENSIONAL ASSESSMENT: RIGHT ATRIUM: NORMAL LEFT ATRIUM: NORMAL RIGHT VENTRICLE: NORMAL LEFT VENTRICLE: NORMAL TRICUSPID VALVE: MILD TRICUSPID REGURGITATION MITRAL VALVE: NORMAL PULMONIC VALVE: NORMAL AORTIC VALVE: NORMAL PERICARDIAL EFFUSION: NONE AORTIC ROOT: NORMAL LEFT VENTRICULAR WALL MOTION: NORMAL DOPPLER/COLOR FLOW: MILD TRICUSPID REGURGITATION. COMMENTS: 1. NORMAL LEFT VENTRICULAR EJECTION FRACTION 55-60% WITH NORMAL WALL MOTION. 2. NORMAL DIASTOLIC FUNCTION. 3. MILD TRICUSPID REGURGITATION. 4. NORMAL RIGHT VENTRICULAR SYSTOLIC PRESSURE. TECHNOLOGIST: THALIA CALDERA
[2024-04-22 15:05] VITALS: BP 90/61; TEMP 98
[2024-04-22 15:13] VITALS: O2SAT 77
--- NOTE | 2024-04-22 16:10 | P.DS ---
Admission Date: 04/22/24 Discharge Date: 04/22/24 Reason for Admission: Respiratory failure - Problems (1) Acute respiratory failure with hypoxia Current Visit: Yes Status: Acute (2) Cardiogenic shock Current Visit: Yes Status: Acute (3) Acute metabolic encephalopathy Current Visit: Yes Status: Acute (4) ESRD (end stage renal disease) Current Visit: No Status: Acute (5) NSTEMI (non-ST elevated myocardial infarction) Current Visit: Yes Status: Acute (6) Hyperkalemia Current Visit: Yes Status: Acute (7) Metabolic acidosis Current Visit: Yes Status: Acute (8) Acute lactic acidosis Current Visit: Yes Status: Acute Brief History of Present Illness: 63-year-old female with history of hypertension, hyperlipidemia, ESRD on HD MWF was brought to the emergency department with altered mental status. According to the family patient was complaining of shortness of breath which rapidly progressed to respiratory distress, followed by altered mental status. Patient was intubated and on mechanical ventilator support in the ED. Patient was noted to be profoundly hypotensive. Patient was requiring 2 vasopressors to maintain her BP. Blood work done in the emergency department showed hyperkalemia, metabolic acidosis. Patient was started on emergency treatment for hyperkalemia and hospitalist service consulted by admitting patient for further management. Hospital Course: Patient was admitted to the ICU, arterial blood gas showed severe acidosis, hyperkalemia was managed with emergency hyperkalemia protocol which included insulin, calcium gluconate, bicarb, Lasix and Lokelma. Patient was still hypoxic despite mechanical ventilation with FiO2 of 80%. Echocardiogram done showed normal EF. Nephrology Dr. Rojas consulted to evaluate for emergent hemodialysis. Spouse declined hemodialysis and requested for comfort measures. I had a discussion with patient's spouse and son and they confirmed withdrawal of care and comfort measures. Withdrawal of care was initiated, patient on 04/22/2024 at 1550 hours. Vital Signs/Physical Exam: Temp Pulse Resp BP Pulse Ox 98.0 F 50 20 90/61 99 04/22/24 12:00 04/22/24 14:15 04/22/24 14:15 04/22/24 14:15 04/22/24 14:15 Laboratory Data at Discharge: WBC 11.80 thou/uL (4.3-10.9) H 08/08/24 22:26 Hgb 10.9 g/dL (12.0-15.0) L 04/21/24 22:26 Hct 33.3 % (36.0-45.0) L 04/21/24 22:26 Plt Count 98 thou/uL (152-406) L 04/21/24 22:26 PT 11.0 SECONDS (9.4-12.5) 04/21/24 22:26 INR 0.98 04/21/24 22:26 APTT Cancelled 04/22/24 15:00 Sodium 134 mEq/L (136-145) L 04/22/24 11:45 Potassium 5.5 mEq/L (3.5-5.1) H 04/22/24 11:45 BUN 56 mg/dL (7-18) H 04/22/24 11:45 Creatinine 5.55 mg/dL (0.55-1.02) H 04/22/24 11:45 Glucose 179 mg/dL (74-106) H 04/22/24 11:45 Total Bilirubin 0.5 mg/dL (0.2-1.0) 04/21/24 22:26 AST 206 U/L (15-37) H 04/21/24 22:26 ALT 31 U/L (13-56) 04/21/24 22:26 Alkaline Phosphatase 76 U/L (45-117) 04/21/24 22:26 Home Medications: Aspirin Chewable [Aspirin Chewable*] 81 mg PO DAILY #30 tab.chew 07/25/17 Cholecalciferol (Vitamin D3) [D3-5000] 125 mcg PO DAILY 03/11/24 Folic Acid/Vit B Complex and C [Radha-Arnie Tablet] 0.8 mg PO DAILY 03/11/24 Isosorbide Mononitrate [Isosorbide Mononitrate ER] 120 mg PO DAILY 03/11/24 Labetalol HCl [Trandate] 200 mg PO TID 03/11/24 Magnesium Oxide [Mag-Oxide] 400 mg PO DAILY 03/11/24 Pantoprazole [Protonix Tab*] 40 mg PO DAILY 03/11/24 Quetiapine [Seroquel*] 25 mg PO BID 03/11/24 NIFEdipine [Nifedipine ER] 90 mg PO BID #60 tab 03/13/24 Atorvastatin Calcium [Lipitor] 10 mg PO DAILY 04/22/24 Followup: Kristine Orantes MD [Primary Care Provider] - Time spent managing pt's care (in minutes): 43
--- NOTE | 2024-04-22 16:18 | CON ---
Date of Consultation: 04/22/2024 Reason For Consultation: Elevated troponin. History Of Present Illness: 63-year-old female, history of end-stage renal disease, on hemodialysis Thursday, Thursday, Thursday, hyperlipidemia, hypertension, presented with altered mental status and bing rtness of breath, intubated en route. There was some data suggesting possible cardiac arrest in the ambulance, but there is nothing documented. The patient was seen at bedside. She is intubated comfo rtably on the ventilator and hemodynamically is stable. There were no reported symptoms of chest amanda n. Past Medical History: As outlined above in the HPI including hypertension, diabetes, dyslipidemia, e nd-stage renal disease, and CVA. Medications: Refer to reconciliation sheet for detailed list. Allergies: MULTIPLE ALLERGIES ARE PRESENT AND THEY WERE REVIEWED. REFER TO NURSE'S NOTES FOR THAT. Family History: No premature coronary artery disease or cancer. Social History: Does not smoke or drink. Does not use any drugs. Review of Systems: She is sedated on the vent. Cannot get any questions answered. Physical Examination: Vital Signs: Reviewed. Head and Neck: Pupils are dilated mildly and neck is supple. Thyroid is not enlarged. Lungs: There is bilateral air entry with rhonchi. No accessory muscle use or muscle retraction. Sh e is on the ventilator. Heart: Regular rate and rhythm. No extra sounds. Abdomen: Soft, nontender. Bowel sounds positive. No organomegaly. No masses or hernia. No rigidi ty or rebound. Extremities: No edema, clubbing, or cyanosis. Intact pulses. Skin: No rash. No nodule. Neuro: She is unresponsive on the ventilator. Investigations: Troponin peaked at 16,000, down to 14,000. BUN 56, creatinine is 5.5, and potassium is also 5.5, on arrival it was 6.4. Assessment And Recommendations: 1.Acute respiratory failure, etiology is to be determined. Could be fluid overload as she is end-st age renal disease. I recommend fluid management via dialysis and weaning trials of her ventilator. 2.Elevated troponin. This is likely demand ischemia. I looked at her echo today and her ejection f raction is normal and even the diastolic function is normal. Very unlikely this is to be ischemia or acute coronary syndrome. I recommend baby aspirin for now and once she recovers, plan for an ischem ia evaluation with coronary angiogram versus stress test. 3.End-stage renal disease. Continue hemodialysis inhouse. 4.Questionable history of cardiac arrest. If not clear, I will recommend neurology evaluation and I recommend observation for at least 48 hours before decision to withdraw care because likely she did not have cardiac arrest as there was no recommendations anywhere. We will investigate this further w ith the EMS. Discussed the case in detail with primary hospitalist and family. /ZO Voice ID: [id number] Report ID: [id number]
[2024-04-23] MEDS ORDERED: ASPIRIN EC 81 MG TAB PO SCH (09:00)
[2024-04-23] MEDS ORDERED: ASPIRIN 81 MG CHEWABLE TABLET FT SCH (09:00)
--- NOTE | 2024-04-23 18:50 | RAD REPORT ---
EXAM DESCRIPTION: RAD - Chest Single View - 04/21/2024 10:47 pm CLINICAL HISTORY: Cough. TECHNIQUE: Frontal view of the chest. COMPARISON: XR Chest 03/12/2024 (report only). FINDINGS: Lungs: Central pulmonary vascular and interstitial prominence and right greater than lef t perihilar opacities. Pleural space: Unremarkable. No pneumothorax. Heart: Unremarkable. No cardiomegaly. Mediastinum: Unremarkable. Normal mediastinal contour. Bones/joints: Unremarkable. No acute fracture. Vasculature: Thoracic aortic atherosclerosis. IMPRESSION: Findings which may be related to pulmonary congestion. Superimposed infection not exclud ed. Electronically signed by: Neno Mary MD 04/21/2024 11:39 PM CDT Due to temporary technical issues with the PACS/Fluency reporting system, reports are being signed by the in house radiologists without review as a courtesy to insure prompt reporting. The interpreting radiologist is fully responsible for the content of the report.
--- NOTE | 2024-04-23 18:51 | RAD REPORT ---
EXAM DESCRIPTION: RAD - Chest Single View - 04/22/2024 12:11 am CLINICAL HISTORY: POST ETT. 63-year-old female. COMPARISON: Chest x-ray 04/21/2024 at 10:39 PM FINDINGS: A single frontal view of the chest was obtained. Interval intubation with the tip of the endotracheal tube lies 2 cm above the kiera. Interval placement of right IJ central venous catheter with its tip overlying the region of the SVC. Interval placement of nasogastric tube with its tip and side-port overlying the region of the stomach . Portion of its distal extent extends off the inferior aspect of the image. Mild cardiomegaly, accentuated secondary to technique. Atherosclerotic aortic calcification. Interval improved aeration throughout the bilateral pulmonary parenchyma, with residual right greater than left interstitial and hazy airspace opacities, which can be seen with edema. Underlying pneumon itis not excluded. No pneumothorax. IMPRESSION: 1. Life support line and tubes as discussed. 2. Improved aeration throughout the bilateral pulmonary parenchyma, with residual opacities which can be seen with edema. Underlying pneumonitis not excluded. Electronically signed by: Kwabena Lujan MD 04/22/2024 12:59 AM T Due to temporary technical issues with the PACS/Fluency reporting system, reports are being signed by the in house radiologists without review as a courtesy to insure prompt reporting. The interpreting radiologist is fully responsible for the content of the report.
--- NOTE | 2024-04-26 09:50 | EEG ---
CHART: [id number] TEST ID#: [id number] DATE OF STUDY: 04/22/2024 THE EEG WAS RECORDED PORTABLE IN THE ICU ON A 17 CHANNEL MACHINE. ELECTRODES WERE APPLIED IN THE USUAL MANNER USING THE INTERNATIONAL 10-20 SYSTEM. THE WAKING BACKGROUND RHYTHM IN THIS RECORD CONSISTS OF POORLY DEVELOPED AND POORLY ORGANIZED WAVES OF 4-6 HZ., IN A WIDE DISTRIBUTION WHICH DO NOT ATTENUATE NORMALLY WITH EYE OPENING. MODERATE VOLTAGE DIAPHASIC WAVES ARE EXPRESSED IN THE FRONTAL REGIONS. THERE ARE NO FOCAL OR LATERALIZING FEATURES. NO EPILEPTIFORM ACTIVITY APPEARS. SLEEP DID NOT OCCUR. HYPERVENTILATION WAS NOT PERFORMED. PHOTIC STIMULATION PRODUCED NO DRIVING BILATERALLY. IMPRESSION: THIS IS AN ABNORMAL ROUTINE AWAKE EEG DUE TO THE PRESENCE OF A MODERATELY SLOW BACKGROUND AND FRONTAL DIAPHASIC ACTIVITY. THESE FINDINGS INDICATE THE PRESENCE OF A NON-SPECIFIC DIFFUSE DISTURBANCE IN CEREBRAL ACTIVITY. THE ETIOLOGY INCLUDES METABLOIC, HYPOXIC-ISCHEMIC OR TOXIC ETIOLOGIES. NO ELECTROGRAPHIC SEIZURES OCCURRED DURING THIS STUDY.
== END 2024-04-22 15:50 | disposition expired | DRG 208 ==
LOC: ER 22:06 → ERHOLD 04-22 01:12 → 3RD-ICU 04-22 02:13
PROVIDERS: ADMIT Family Medicine; ATTEND Internal Medicine
PROC: 0BH17EZ Insertion of Endotracheal Airway into Trachea, Via Natural or Artificial Opening (ICD-10-PCS; principal; 2024-04-22)
PROC: 5A1935Z Respiratory Ventilation, Less than 24 Consecutive Hours (ICD-10-PCS; 2024-04-22)
PROC: 02HV33Z Insertion of Infusion Device into Superior Vena Cava, Percutaneous Approach (ICD-10-PCS; 2024-04-22)
PROC: 3E043XZ Introduction of Vasopressor into Central Vein, Percutaneous Approach (ICD-10-PCS; 2024-04-22)
PROC: 4A033R1 Measurement of Arterial Saturation, Peripheral, Percutaneous Approach (ICD-10-PCS; 2024-04-22)
DX: J96.01 Acute respiratory failure with hypoxia (principal); J69.0 Pneumonitis due to inhalation of food and vomit; I21.4 Non-ST elevation (NSTEMI) myocardial infarction; R65.11 Systemic inflammatory response syndrome (SIRS) of non-infectious origin with acute organ dysfunction; G93.41 Metabolic encephalopathy; I50.43 Acute on chronic combined systolic (congestive) and diastolic (congestive) heart failure; N18.6 End stage renal disease; I69.351 Hemiplegia and hemiparesis following cerebral infarction affecting right dominant side; E87.21 Acute metabolic acidosis; R57.0 Cardiogenic shock; I46.9 Cardiac arrest, cause unspecified; E11.22 Type 2 diabetes mellitus with diabetic chronic kidney disease; E78.5 Hyperlipidemia, unspecified; Z99.2 Dependence on renal dialysis; E87.5 Hyperkalemia; F17.210 Nicotine dependence, cigarettes, uncomplicated; Z66 Do not resuscitate
CPT/HCPCS: 31500; 36415; 36600; 51702; 71045; 80048; 80076; 82805; 82947; 83605; 83880; 84132; 84484; 85025; 85610; 85730; 87040; 93005; 93306; 94002; 94003; 95816; 99291; 99292; J0171; J0461; J0696; J1940; J2704; J2919; J7030; J7050; J7060; J7613